=== PATIENT | female | born 1955 | race Caucasian/White ===

== ENCOUNTER → 2017-06-18 | Outpatient (CLI) | payer OTHER, MEDICAID, SELFPAY | PROVIDERS: PCP Family Medicine; Visit Provider Family Medicine | DX: E04.1 Nontoxic single thyroid nodule (principal) | CPT/HCPCS: 76536 ==

== ENCOUNTER → 2017-08-19 08:21 | Outpatient (CLI) | payer OTHER, MEDICAID, SELFPAY ==
[2017-08-19 08:39] LABS: Basophils % 0.5 % (0.1-2.0); Eosinophils # 0.2 K/mm3 (0.0-0.4); Hematocrit 42.4 % (37.0-47.0); Hemoglobin 13.5 g/dL (12.2-16.2); Lymphocytes # 2.2 K/mm3 (0.7-4.5); Lymphocytes % 29.1 K/mm3 (10-50); Mean Corpuscular HGB Conc 31.8 g/dL (31.8-35.4); Mean Corpuscular Hemoglobin 28.9 pg (27.0-31.2); Mean Corpuscular Volume 90.8 fl (81-99); Mean Platelet Volume 8.4 fl (7.4-10.4); Monocytes # 0.4 K/mm3 (0.1-1.0); Neutrophils # 4.6 K/mm3 (1.8-7.8); Neutrophils % 62.3 % (37.0-80.0); Platelet Count 243 K/mm3 (142-424); Red Blood Count 4.67 M/mm3 (4.20-5.40); Red Cell Distribution Width 14.1 % (11.5-17.5); White Blood Count 7.4 K/mm3 (4.8-10.8)
[2017-08-19 08:48] LABS: Albumin Level 3.5 gm/dL (3.4-5.0); Albumin/Globulin Ratio 0.8 (1.1-1.8); Alkaline Phosphatase 95 U/L (46-116); Chloride 106 mmol/L (98-107); Globulin 4.5 gm/dl (1.3-3.2); Potassium 3.6 mmoL/L (3.5-5.1)
[2017-08-19 09:16] LABS: Alanine Aminotransferase 18 U/L (12-78); Amylase 33 U/L (25-125); Anion Gap 16.6 mEq/L (5-15); Aspartate Amino Transferase 9 U/L (15-37); Bilirubin,Total 0.3 mg/dL (0.2-1.0); Blood Urea Nitrogen 13 mg/dL (7-18); Calcium 8.8 mg/dL (8.5-10.1); Carbon Dioxide 26 mmol/L (21.0-32.0); Creatinine,Serum 1.07 mg/dL (0.55-1.02); Estimated Glomerular Filt Rate 52 ml/min (>60); GFR (African American) 63 ML/MIN (>60); Glucose 88 mg/dL (74-106); Lipase 179 u/L (73-393); Sodium 145 mmol/L (136-145)
== END ==
PROVIDERS: Visit Provider Nurse Practitioner
DX: R10.9 Unspecified abdominal pain (principal)
CPT/HCPCS: 36415; 80053; 82150; 83690; 85025

== ENCOUNTER → 2018-02-27 07:13 | Outpatient (CLI) | payer OTHER, MEDICAID, SELFPAY ==
--- NOTE | 2018-02-27 07:15 | NM_ITS ---
CARDIOLITE SPECT MYOCARDIAL PERFUSION SCAN, REST AND STRESS: EXERCISE STRESS [facility] REVIEW QGS EF AND WALL MOTION EVALUATION: QPS - PERFUSION EVALUATION HISTORY: ABN EKG DOSE: 10.49 mCi technetium 99m mibi intravenously at rest followed by 31.8 mCi technetium 99m mibi following the intravenous ministration of 0.4 mg of Lexiscan. Resting blood pressure is 161/84. Stress blood pressure 149/85. FINDINGS: Ejection fraction is calculated to be 77. Stress images reveal decreased activity in the mid anterior apical wall while rest images reveal slightly worse imaging. There is also worsening uptake in the septum. Gated images calculated ejection fraction of 77% with normal wall motion IMPRESSION: Abnormal stress test suggesting anterior and septal ischemia with some degree of reverse redistribution. Hyperdynamic ejection fraction hyperdynamic wall motion apical correlation advised
--- NOTE | 2018-02-27 09:43 | HMH.ITSHM ---
METOPROLOL OMEPRAZOLE OXYCODONE CLINDAMGCIN CITOLOPRAM LISINOPRIL LYRICA AMITRIPTYLINE
== END ==
PROVIDERS: Family Provider Family Medicine; PCP Family Medicine; Visit Provider Internal Medicine
DX: Z01.810 Encounter for preprocedural cardiovascular examination (principal); R94.31 Abnormal electrocardiogram [ECG] [EKG]
CPT/HCPCS: 78452; 93017; 93306; A9502; J2785

== ENCOUNTER → 2019-01-12 11:33 | Outpatient (CLI) | payer BC, MEDICAID, SELFPAY ==
--- NOTE | 2019-01-12 11:39 | XR_ITS ---
XR chest 2V HISTORY: ITS.REASON: dyspnea ORDERING PHYSICIAN: Eulalia Benton APRN PATIENT AGE: 63 years COMPARISON: 03/18/2018. FINDINGS: The cardiomediastinal silhouette and pulmonary vascularity are within normal limits. There are stable punctate benign right lung calcified granulomas. Lung jaimes are otherwise clear.. There are stable middle lower thoracic spine moderate dextroscoliosis.. IMPRESSION: No change. No acute process.
[2019-01-12 14:07] LABS: Anion Gap 16.9 mEq/L (5-15); Blood Urea Nitrogen 20 mg/dL (7-18); Calcium 9.8 mg/dL (8.5-10.1); Carbon Dioxide 26 mmol/L (21.0-32.0); Chloride 99 mmol/L (98-107); Creatinine,Serum 1.26 mg/dL (0.55-1.02); Estimated Glomerular Filt Rate 43 ml/min (>60); GFR (African American) 52 ML/MIN (>60); Glucose 105 mg/dL (74-106); Potassium 3.9 mmoL/L (3.5-5.1); Sodium 138 mmol/L (136-145)
== END ==
PROVIDERS: PCP Family Medicine; Visit Provider Nurse Practitioner Family
DX: R00.0 Tachycardia, unspecified (principal); R06.09 Other forms of dyspnea; R94.31 Abnormal electrocardiogram [ECG] [EKG]; I10 Essential (primary) hypertension
CPT/HCPCS: 36415; 71046; 80048; 83880

== ENCOUNTER → 2019-01-15 11:41 | Outpatient (CLI) | payer BC, MEDICAID, SELFPAY ==
--- NOTE | 2019-01-15 11:43 | CA_ITS ---
PROCEDURE: 2-D M-mode and color Doppler study INDICATIONS FOR THE TEST: Chest pain COPD Heart Murmur Tobacco Smoking Palpitations Fatigue Syncope Edema Hypertension+Diabetes Mellitus Rheumatic Fever SOB+ROBERTS Obesity Hyperlipidemia+ Family History HD Additional History ABN EKG, CHF PATIENT INFORMATION HEIGHT: 68 WEIGHT:178 GENDER: Female B/P:133/88 2-D/M-MODE INTERPRETATION: 2-D MEASUREMENTS OBSERVED VALUES IN CMS Right Ventricular Dimension (RVDd) 1.8 Interventricular Septum (Thickness)(IVsd) 1.0 Left Ventricular Internal Dimensions(LVIDd) 3.6 Left Ventricular Posterior Wall (Thickness)(LVPWd) 0.9 Aortic Root 3.2 Aortic Cusp Separation 1.8 Left Atrial Dimensions (LAD) 3.7 2D 1. Technically difficult study because of the patient's factor and poor acoustic windows. 2. Left atrium is mildly enlarged, left ventricle is normal size, the ventricle wall thickness is upper limit of the normal, there is preserved left ventricular systolic function, visually estimated ejection fraction 55% with no regional wall motion abnormality, endocardial surfaces are poorly visualized. 3. The right atrium and the ventricular normal size and contractility. 4. The aortic valve is minimally thickened and fibrosed. 5. The mitral and tricuspid valvular grossly normal. 6. No significant pericardial effusion noted. DOPPLER INTERROGATION: Doppler interrogation of the aortic, mitral and tricuspid valvular presence of mild mitral and tricuspid regurgitation, tricuspid regurgitation jet velocity is inadequate for calculation of the right ventricular systolic pressure, grade 1 dysfunction seen with tissue Doppler evidence of raised left atrial pressure. CONCLUSION: 1. Mildly enlarged left atrium, normal left ventricular size, visually estimated ejection fraction 55% with no regional wall motion abnormality, endocardial surfaces are poorly visualized. Grade 1 diastolic dysfunction seen with tissue Doppler evidence of raised left atrial pressure. 2. Mild mitral and tricuspid regurgitation 3. No significant pericardial effusion noted.
== END ==
PROVIDERS: PCP Family Medicine; Visit Provider Internal Medicine
DX: R06.09 Other forms of dyspnea (principal); R94.31 Abnormal electrocardiogram [ECG] [EKG]; I10 Essential (primary) hypertension; R00.0 Tachycardia, unspecified
CPT/HCPCS: 93306

== ENCOUNTER → 2019-02-05 10:45 | Outpatient (CLI) | payer BC, MEDICAID, SELFPAY ==
--- NOTE | 2019-02-05 10:48 | XR_ITS ---
PROCEDURE: XR CHEST 2V CLINICAL HISTORY: ABSCESS Shortness of breath COMPARISON: CXR CHEST(2 VIEWS-NOT PORTABLE) from 01/08/2017 CXR1VP XR chest portable from 03/18/[address] angio chest from 03/18/2018 FINDINGS: The cardiomediastinal silhouette and pulmonary vascularity are within normal limits.The lungs are clear without infiltrates, suspicious nodules, or pleural effusions.Dextroscoliosis of the thoracic spine. Prior kyphoplasty at L1 IMPRESSION: No acute findings. Dictated by: Sonu Mi MD 02/05/2019 11:40 Signed by: <Electronically signed by Sonu Mi MD in [place]> 02/05/2019 11:40
== END ==
PROVIDERS: PCP Family Medicine; Visit Provider Physician Assistant
DX: L02.91 Cutaneous abscess, unspecified (principal)
CPT/HCPCS: 71046

== ENCOUNTER → 2019-05-03 13:03 | Outpatient (CLI) | payer BC, OTHER, SELFPAY ==
[2019-05-03 15:07] LABS: Anion Gap 14.7 mEq/L (5-15); Blood Urea Nitrogen 7 mg/dL (7-18); Calcium 8.6 mg/dL (8.5-10.1); Carbon Dioxide 25 mmol/L (21.0-32.0); Chloride 107 mmol/L (98-107); Estimated Glomerular Filt Rate 73 ml/min (>60); GFR (African American) 88 ML/MIN (>60); Glucose 96 mg/dL (74-106); Potassium 3.7 mmoL/L (3.5-5.1); Sodium 143 mmol/L (136-145)
== END ==
PROVIDERS: Visit Provider Urology
DX: I51.89 Other ill-defined heart diseases (principal)
CPT/HCPCS: 36415; 80048

== ENCOUNTER → 2019-09-07 16:35 | Outpatient (CLI) | payer BC, OTHER, SELFPAY ==
[2019-09-07 17:14] LABS: Basophils # 0.1 K/mm3 (0-0.2); Basophils % 0.9 % (0.1-2.0); Eosinophils # 0.4 K/mm3 (0.0-0.4); Eosinophils % 6.2 % (0.1-12.0); Hematocrit 42.2 % (37.0-47.0); Hemoglobin 12.7 g/dL (12.2-16.2); Lymphocytes # 2.3 K/mm3 (0.7-4.5); Lymphocytes % 39.9 % (10-50); Mean Corpuscular HGB Conc 30.2 g/dL (31.8-35.4); Mean Corpuscular Volume 86.3 fl (81-99); Mean Platelet Volume 9.9 fl (7.4-10.4); Monocytes # 0.4 K/mm3 (0.1-1.0); Monocytes % 6.7 % (1.7-9.3); Neutrophils # 2.7 K/mm3 (1.8-7.8); Neutrophils % 46.2 % (37.0-80.0); Platelet Count 211 K/mm3 (142-424); Red Blood Count 4.88 M/mm3 (4.20-5.40); Red Cell Distribution Width 15.3 % (11.5-17.5); White Blood Count 5.8 K/mm3 (4.8-10.8)
[2019-09-07 17:38] LABS: Chloride 105 mmol/L (98-107); Potassium 5.1 mmoL/L (3.5-5.1); Sodium 143 mmol/L (136-145)
[2019-09-07 17:41] LABS: Alanine Aminotransferase 14 U/L (12-78); Albumin Level 3.8 g/dl (3.5-5.0); Albumin/Globulin Ratio 1.2 (1.1-1.8); Alkaline Phosphatase 111 U/L (38-126); Anion Gap 12.1 mEq/L (5-15); Aspartate Amino Transferase 24 U/L (14-36); Bilirubin,Total 0.3 mg/dl (0.2-1.3); Blood Urea Nitrogen 10 mg/dl (7-17); Calcium 9.2 mg/dl (8.4-10.2); Carbon Dioxide 31 mmol/L (22.0-30.0); Chol/HDL Ratio 4.2 (1-3.5); Cholesterol 182 mg/dl (140-200); Estimated Glomerular Filt Rate 73 ml/min (>60); GFR (African American) 88 ML/MIN (>60); Globulin 3.2 g/dL (1.3-3.2); Glucose 97 mg/dl (74-100); HDL Cholesterol 43 mg/dl (40-60); Triglycerides 146 mg/dl (30-150); VLDL Cholesterol 29 mg/dL (0-40)
[2019-09-07 17:53] LABS: Direct LDL Cholesterol 111.16 mg/dL (100-129)
[2019-09-07 17:58] LABS: T4 (Thyroxine) 8.1 ug/dl (5.53-11.0)
[2019-09-07 18:12] LABS: Thyroid Stimulating Hormone 2.57 uIU/mL (0.465-4.68)
== END ==
PROVIDERS: Visit Provider Physician Assistant
DX: I10 Essential (primary) hypertension (principal); F41.9 Anxiety disorder, unspecified; F32.9 Major depressive disorder, single episode, unspecified; M51.16 Intervertebral disc disorders with radiculopathy, lumbar region; M54.5 Low back pain; E55.9 Vitamin D deficiency, unspecified; G89.29 Other chronic pain
CPT/HCPCS: 80053; 80061; 82652; 84436; 84443; 85025

== ENCOUNTER 2019-12-03 10:33 | Emergency (ER) | payer BC, OTHER, SELFPAY ==
[2019-12-03 10:33] VITALS: BP 140/85; PULSE 105; RESP 18; TEMP 36.9; O2SAT 97; BMI 27.3
--- NOTE | 2019-12-03 10:33 | ECG_ITS ---
APPROVED REPORT Exam: Resting ECG HR:101 bpm ECG Measurements Heart Rate 101 AXES NV 158 P 37 QRSd 82 QRS -7 QT 394 T 45 QTc 510 <Conclusion> Sinus tachycardia Minimal voltage criteria for LVH, may be normal variant Inferior infarct, age undetermined Abnormal ECG Electronically signed by : Jevon Donahue, 12/03/2019 14:07:46
--- NOTE | 2019-12-03 10:42 | XR_ITS ---
PROCEDURE: XR CHEST 2V CLINICAL HISTORY: soa Shortness of air COMPARISON: CXR CHEST(2 VIEWS-NOT PORTABLE) from 01/08/2017 CXR1VP XR chest portable from 03/18/[address] angio chest from 03/18/2018 XR CHEST 2V from 02/05/2019 FINDINGS: The cardiomediastinal silhouette and pulmonary vascularity are within normal limits. There is patchy density in the retrocardiac region on the left which could be due to an area of atelectasis or infiltrate. The remaining lungs are clear. There is dextroscoliosis of the upper thoracic spine and levoscoliosis of the lumbar spine. Prior vertebroplasty at T12. No acute bony abnormalities. IMPRESSION: Atelectasis or infiltrate in the retrocardiac region on the left Dictated by: Sonu Mi MD 12/03/2019 11:56 Electronically signed by Sonu Mi MD in [place] 12/03/2019 11:56
[2019-12-03 10:48] LABS: Chloride 106 mmol/L (98-107)
[2019-12-03 10:49] LABS: Basophils # 0.1 K/mm3 (0-0.2); Basophils % 0.6 % (0.1-2.0); Eosinophils # 0.4 K/mm3 (0.0-0.4); Eosinophils % 4.2 % (0.1-12.0); Hematocrit 39.1 % (37.0-47.0); Hemoglobin 12.6 g/dL (12.2-16.2); Lymphocytes # 2.9 K/mm3 (0.7-4.5); Lymphocytes % 30.5 % (10-50); Mean Corpuscular HGB Conc 32.1 g/dL (31.8-35.4); Mean Corpuscular Hemoglobin 28.5 pg (27.0-31.2); Mean Corpuscular Volume 88.9 fl (81-99); Mean Platelet Volume 8.4 fl (7.4-10.4); Monocytes # 0.5 K/mm3 (0.1-1.0); Monocytes % 4.7 % (1.7-9.3); Neutrophils # 5.8 K/mm3 (1.8-7.8); Platelet Count 182 K/mm3 (142-424); Potassium 4.1 mmoL/L (3.5-5.1); Red Cell Distribution Width 15.8 % (11.5-17.5); Sodium 138 mmol/L (136-145); White Blood Count 9.6 K/mm3 (4.8-10.8)
[2019-12-03 10:51] LABS: Blood Urea Nitrogen 15 mg/dl (7-17); Creatinine Clearance Estimated 75 mL/min (50-200); Estimated Glomerular Filt Rate 63 ml/min (>60); GFR (African American) 77 ML/MIN (>60)
[2019-12-03 10:52] LABS: Anion Gap 7.1 mEq/L (5-15); Calcium 8.9 mg/dl (8.4-10.2); Carbon Dioxide 29 mmol/L (22.0-30.0); Glucose 96 mg/dl (74-100)
[2019-12-03 11:03] VITALS: BP 152/103; PULSE 90; RESP 18; O2SAT 94
[2019-12-03 11:04] LABS: Troponin I < 0.01 ng/ml (0.00-0.034)
--- NOTE | 2019-12-03 11:14 | HMH.EDCP ---
ED Disposition Clinical Impression: Atypical chest pain Disposition: Home, Self-Care Condition on Discharge: Good Instructions: DI for Atypical Chest Pain Referrals: Roberto Carlos Feldman MD [Primary Care Provider] - - Critical Care Critical Care Time: No Attestation: On 12/03/19, the high probability of a clinically significant, sudden or life threatening deterioration of the following system(s) required my full and direct attention, intervention and personal management. The time I documented below is in addition to time spent performing reported procedures but includes the following listed in this critical care notation. Medical Decision Making - Medical Records Medical records reviewed: Yes: I reviewed the patient's medical records. - Vamsi Inquiry Pt receiving controlled substance: No Vital Signs: 12/03/19 10:33 Temperature 98.5 F Temperature Source Oral Pulse Rate [Right] 105 H Respiratory Rate 18 Blood Pressure [Right Arm] 140/85 Blood Pressure Mean [Right Arm] 103 02 Sat by Pulse Oximetry 97 - Lab Data Lab results reviewed: Yes: I reviewed the patient's lab results. Lab Results 12/03/19 10:35: WBC 9.6, RBC 4.40, Hgb 12.6, Hct 39.1, MCV 88.9, MCH 28.5, MCHC 32.1, RDW 15.8, Plt Count 182, MPV 8.4, Neut % (Auto) 60.0, Lymph % (Auto) 30.5, [place] % (Auto) 4.7, Eos % (Auto) 4.2, Baso % (Auto) 0.6, Neut # (Auto) 5.8, Lymph # (Auto) 2.9, [place] # (Auto) 0.5, Eos # (Auto) 0.4, Baso # (Auto) 0.1 12/03/19 10:35: Sodium 138, Potassium 4.1, Chloride 106, Carbon Dioxide 29, Anion Gap 7.1, BUN 15, Creatinine 0.90, Estimated Creat Clear 75, Estimated GFR 63, Est GFR ( Amer) 77, Glucose 96, Calcium 8.9, Troponin I < 0.01 Result diagrams: 12/03/19 10:35 12/03/19 10:35 Orders (Tests/Meds): ORDERS Category Date Time Status XR chest 2V Stat Exams 12/03/19 10:42 Taken Troponin I Q3H Lab 12/03/19 13:45 Ordered Troponin I Q3H Lab 12/03/19 16:45 Ordered - Radiology Data #1 Image(s): Chest Preliminary Findings: Normal/NAD - ECG Data Tracing #1 I reviewed this ECG and interpreted as documented below: Normal Sinus Rhythm: Yes Chest Pain HPI - General Chief Complaint: Chest Pain Stated Complaint: chest pain, SOA Time Seen by Provider: 12/03/19 11:15 Mode of Arrival: Wheelchair Source of Information: Patient Limitations: No Limitations Description of Symptoms (Recalled from ER Triage Doc. by RN): C/O chest pain that began this morning after being very soa for 1 week, denies cough or fever. - History of Present Illness MD complaint: chest pain indicative of cardiac Onset (ago): hour(s) Duration: constant Activity at onset: during rest Pain location: substernal Severity: moderate Severity scale (1-10): 3 Quality: tightness Pain radiation: none Relieving factors: nothing Exacerbating factors: nothing Associated symptoms: nausea Risk Factors for CAD: Hypertension Treatments prior to or on arrival for Cardiac Chest Pain: none - Related Data Prior Cardiac Testing/Procedures: Echocardiogram, Stress Test, Cardiac Angiogram On Oral Contraceptives: No (Clean stress and catheter years ago) Home Medications Medication Instructions Recorded Confirmed omeprazole 40 mg capsule,delayed 40 mg PO DAILY 03/06/18 12/01/19 release potassium chloride 10 mEq 10 meq PO DAILY 03/06/18 12/01/19 capsule,extended release metoprolol tartrate 50 mg tablet 25 mg PO BID tab 01/12/19 12/01/19 citalopram 40 mg tablet 40 mg PO DAILY tab 09/07/19 12/01/19 oxycodone 10 mg tablet 10 mg PO Q6H tab 12/01/19 12/01/19 Previous Rx's Medication Instructions Recorded ergocalciferol (vitamin D2) 1,250 50,000 unit PO QWEEK 90 Days #12 09/15/19 mcg (50,000 unit) capsule cap lisinopril 20 mg tablet 20 mg PO DAILY #90 tab 11/02/19 albuterol sulfate 90 mcg/actuation See Rx Instructions .ROUTE 11/29/19 aerosol inhaler .COMPLEX #18 gram metoprolol succinate 50 mg See Rx Instructions .ROUTE
[2019-12-03 12:30] VITALS: BP 154/97; PULSE 89; RESP 18; O2SAT 94
--- NOTE | 2019-12-03 13:15 | PC.NURSE ---
Notified of pt needing pain medication
--- NOTE | 2019-12-03 13:15 | INFXCTL.NOTE ---
Notified of pt needing pain medication
--- NOTE | 2019-12-03 13:25 | PC.NURSE ---
Notified that pt is in room crying because of pain in her back that is chronic even after administration of pain medication.
[2019-12-03 13:35] LABS: Troponin I < 0.01 ng/ml (0.00-0.034)
[2019-12-03 14:04] VITALS: BP 122/94; PULSE 84; RESP 20; TEMP 36.8; O2SAT 98
== END 2019-12-03 14:06 | disposition home or self-care (01) ==
PROVIDERS: Emergency Provider Family Medicine; PCP Emergency Medicine
DX: R07.89 Other chest pain (principal); K21.9 Gastro-esophageal reflux disease without esophagitis; I10 Essential (primary) hypertension; F41.9 Anxiety disorder, unspecified; Z79.899 Other long term (current) drug therapy
CPT/HCPCS: 71046; 80048; 84484; 85025; 93005; 96374; 96375; 99284; J2405

== ENCOUNTER → 2020-01-21 09:26 | Outpatient (CLI) | payer BC, OTHER, SELFPAY ==
--- NOTE | 2020-01-21 09:27 | MM_ITS ---
PROCEDURE: MM DIG SCREENING MAMM BI W/CAD Digital Breast Tomosynthesis Included CLINICAL INDICATION: screening There is no personal or family history of breast cancer. Patient had previous mammograms more than 10 years ago and they are not available for review. The patient has limited mobility due to back issues and left CC tim images could not be obtained COMPARISON: No exams were available for comparison TECHNIQUE: Standard CC and MLO images and 3D Tomosynthesis was obtained. R2 CAD reviewed. FINDINGS: Scattered fibroglandular densities are seen throughout both breasts there is a benign-appearing calcification right breast. There is no suspicious lesion and no suspicious microcalcifications. IMPRESSION: Fibrofatty parenchyma with no suspicious lesions seen BI-RAD Category: 2 Benign Finding(s) FOLLOW-UP: 1YR 1 Year Follow-up (A letter has been sent to the patient regarding results of the study.) Dictated Dr. Dean Oliveira MD 01/28/2020 09:18 Dr. Dean Mosley MD in [place] 01/28/2020 09:18
== END ==
PROVIDERS: PCP Emergency Medicine; Visit Provider Physician Assistant
DX: Z12.31 Encounter for screening mammogram for malignant neoplasm of breast (principal); R06.02 Shortness of breath
CPT/HCPCS: 77063; 77067; 94060; 94618; 94726; 94729

== ENCOUNTER 2020-05-25 04:28 | Emergency (ER) | payer BC, OTHER, SELFPAY ==
[2020-05-25 04:28] VITALS: BP 165/90; PULSE 64; RESP 16; TEMP 36.8; O2SAT 96; BMI 26.6
[2020-05-25 04:29] VITALS: BMI 26.6
--- NOTE | 2020-05-25 04:31 | XR_ITS ---
PROCEDURE: XR PELVIS 1-2V CLINICAL INDICATION: fall Posttraumatic pain COMPARISON: CR PELAP PELVIS AP ONLY from 10/15/2016 TECHNIQUE: XR Pelvis AP View FINDINGS: No fracture or dislocation is evident. There are mild osteoarthritic changes of the hips. A pain pump is present projecting over the left lower quadrant. The tip of the catheter is at the mid sacral region. Small metallic density is present at the L5 area No lytic or blastic change. IMPRESSION: No acute findings. Dictated by: Sonu Mi MD 05/25/2020 05:56 Sonu Mi MD in [place] 05/25/2020 05:56
--- NOTE | 2020-05-25 04:31 | CT_ITS ---
PROCEDURE: CT LUMBAR SPINE WO CON CLINICAL HISTORY: fall Posttraumatic pain, fall with injury and pain recent surgery with pain pump repair 05/22/2020 COMPARISON: No exams were available for comparison TECHNIQUE: Axial images obtained with sagittal and coronal reformats. All CT scans at the facility use one or more dose reduction, viz: automated exposure control, ma/kV adjustment per patient size (including targeted exams where dose is matched to indication, i.e. head), or iterative reconstruction technique. FINDINGS: There is fusion of the lower thoracic spine and upper lumbar spine through the L3 level. There has been prior kyphoplasty at L1. There is an acute nondisplaced transverse fracture through the lower aspect of L2. There is degenerative disc disease at L2-L3. At L4-5 there is degenerative disc disease with facet and ligamentum hypertrophy with canal stenosis. There is a metallic density in the posterior elements/base of the spinous process at L4 with a lucent lesion at L4 area with an air-fluid level which could be postsurgical. There is severe canal stenosis at L4-5 with facet and ligamentum hypertrophy and bulging disc. Severe bilateral lateral recess and foraminal narrowing at this level. Bulging disc is present at L5-S1 with canal stenosis and bilateral foraminal narrowing there is an intrathecal catheter which enters at the L3-L4 level with the catheter projected superiorly and in at the L2 level. There is an additional intrathecal catheter extending from the T12 level inferiorly to the S2 level which does not appear to be connected to a pump device. There is some subcutaneous edema and there is a small amount of subcutaneous emphysema in the left superficial soft tissues at the upper lumbar region IMPRESSION: 1. Acute nondisplaced transverse fracture of the lower aspect of L2. 2. Severe lumbar spondylosis with canal stenosis along with postsurgical changes. Please see above for detailed description. Dictated by: Sonu Mi MD 05/25/2020 09:53 Sonu Mi MD in [place] 05/25/2020 09:53
--- NOTE | 2020-05-25 04:31 | XR_ITS ---
PROCEDURE: XR FOREARM LT 2V CLINICAL INDICATION: fall Posttraumatic pain, fall with injury and pain COMPARISON: CR XR WRIST LT MIN 3V from 05/25/2020 FINDINGS: Comminuted fractures present involving the distal radius. The fracture is nondisplaced. There does appear to be some intra-articular involvement with longitudinal component of the fracture. There is a small butterfly fragment noted laterally at fracture site. Proximal mid aspect of the forearm have an unremarkable appearance. The joint spaces are well-preserved. No significant degenerative/arthritic changes. No erosive changes evident. Other findings:None. IMPRESSION: Comminuted distal radial fracture nondisplaced with intra-articular involvement. Dictated by: Sonu Mi MD 05/25/2020 05:53 Sonu Mi MD in [place] 05/25/2020 05:53
--- NOTE | 2020-05-25 04:35 | XR_ITS ---
PROCEDURE: XR CHEST AP CLINICAL HISTORY: fall Posttraumatic pain COMPARISON: CR CXR1VP XR chest portable from 03/18/[address] angio chest from 03/18/2018 CR XR CHEST 2V from 02/05/2019 CR XR CHEST 2V from 12/03/2019 FINDINGS: The cardiomediastinal silhouette and pulmonary vascularity are within normal limits. Small hiatal hernia suspected Thoracic scoliosis convex right. Prior kyphoplasty at L2. Bone plate is present along the lower cervical spine. IMPRESSION: As above, no acute finding Dictated by: Sonu Mi MD 05/25/2020 05:58 Sonu Mi MD in [place] 05/25/2020 05:58
--- NOTE | 2020-05-25 04:45 | PC.NURSE ---
pt to radiology
[2020-05-25 04:48] LABS: Basophils # 0.1 K/mm3 (0-0.2); Basophils % 0.7 % (0.1-2.0); Chloride 106 mmol/L (98-107); Eosinophils # 0.2 K/mm3 (0.0-0.4); Eosinophils % 2.6 % (0.1-12.0); Hematocrit 40.8 % (37.0-47.0); Hemoglobin 12.9 g/dL (12.2-16.2); Lymphocytes # 2.6 K/mm3 (0.7-4.5); Mean Corpuscular HGB Conc 31.7 g/dL (31.8-35.4); Mean Corpuscular Hemoglobin 27.7 pg (27.0-31.2); Mean Corpuscular Volume 87.2 fl (81-99); Mean Platelet Volume 9.1 fl (7.4-10.4); Monocytes # 0.6 K/mm3 (0.1-1.0); Monocytes % 6.9 % (1.7-9.3); Neutrophils % 58.8 % (37.0-80.0); Platelet Count 193 K/mm3 (142-424); Red Blood Count 4.68 M/mm3 (4.20-5.40); Red Cell Distribution Width 15.1 % (11.5-17.5); Sodium 142 mmol/L (136-145); White Blood Count 8.5 K/mm3 (4.8-10.8)
[2020-05-25 04:49] LABS: Potassium 3.7 mmoL/L (3.5-5.1)
[2020-05-25 04:51] LABS: Alanine Aminotransferase 14 U/L (12-78); Albumin Level 4.6 g/dl (3.5-5.0); Albumin/Globulin Ratio 1.3 (1.1-1.8); Alkaline Phosphatase 108 U/L (38-126); Anion Gap 11.7 mEq/L (5-15); Aspartate Amino Transferase 29 U/L (14-36); Bilirubin,Total 0.6 mg/dl (0.2-1.3); Blood Urea Nitrogen 15 mg/dl (7-17); Carbon Dioxide 28 mmol/L (22.0-30.0); Creatinine Clearance Estimated 73 mL/min (50-200); Estimated Glomerular Filt Rate 63 ml/min (>60); GFR (African American) 77 ML/MIN (>60); Globulin 3.6 g/dL (1.3-3.2); Total Protein,Serum 8.2 g/dl (6.3-8.2)
[2020-05-25 04:52] LABS: Calcium 9.5 mg/dl (8.4-10.2); Glucose 165 mg/dl (74-100)
[2020-05-25 05:01] VITALS: BP 156/89; PULSE 76; RESP 14; O2SAT 97
--- NOTE | 2020-05-25 05:18 | PC.NURSE ---
Left wrist elevated and ice pack applied
--- NOTE | 2020-05-25 05:22 | PC.NURSE ---
received report from [facility] re: lumbar ct. radiologist spoke with
[2020-05-25 05:28] VITALS: BP 168/99; PULSE 64; RESP 14; O2SAT 97
--- NOTE | 2020-05-25 05:33 | HMH.EDFALL ---
ED Disposition Clinical Impression: Fracture of wrist Qualifiers: Encounter type: initial encounter Fracture type: closed Laterality: left Qualified Code(s): S62.102A - Fracture of unspecified carpal bone, left wrist, initial encounter for closed fracture Fracture, vertebral, lumbar closed Qualifiers: Encounter type: initial encounter Lumbar vertebra fracture level: L2 Fracture morphology: unspecified fracture morphology Qualified Code(s): S32.029A - Unspecified fracture of second lumbar vertebra, initial encounter for closed fracture Chronic pain Qualifiers: Chronic pain type: other chronic postprocedural pain Qualified Code(s): G89.28 - Other chronic postprocedural pain Disposition: Home, Self-Care Condition on Discharge: Fair Instructions: DI for Vertebral Fracture Additional Instructions: see pcp for follow up Referrals: PCP,No [Primary Care Provider] - - Critical Care Critical Care Time: No Attestation: On 05/25/20, the high probability of a clinically significant, sudden or life threatening deterioration of the following system(s) required my full and direct attention, intervention and personal management. The time I documented below is in addition to time spent performing reported procedures but includes the following listed in this critical care notation. Medical Decision Making - Medical Records Medical records reviewed: Yes: I reviewed the patient's medical records. - Vamsi Inquiry Pt receiving controlled substance: No Vital Signs: 05/25/20 04:28 05/25/20 05:01 05/25/20 05:28 Temperature 98.2 F Temperature Source Oral Pulse Rate [Right Radial] 64 76 64 Respiratory Rate 16 14 14 Blood Pressure [Right Arm] 165/90 H 156/89 H 168/99 H Blood Pressure Mean [Right Arm] 115 111 122 Blood Pressure Source [Right Arm] Automatic Cuff Automatic Cuff Automatic Cuff Blood Pressure Position [Right Arm] Supine Sitting Supine 02 Sat by Pulse Oximetry 96 97 97 Oxygen Delivery Method Room Air Room Air 05/25/20 07:22 05/25/20 08:04 Temperature Temperature Source Pulse Rate [Right Radial] 66 69 Respiratory Rate Blood Pressure [Right Arm] 169/98 H 169/87 H Blood Pressure Mean [Right Arm] 121 114 Blood Pressure Source [Right Arm] Automatic Cuff Automatic Cuff Blood Pressure Position [Right Arm] Sitting Sitting 02 Sat by Pulse Oximetry 95 95 Oxygen Delivery Method Room Air Room Air - Lab Data Lab results reviewed: Yes: I reviewed the patient's lab results. Lab Results 05/25/20 04:30: WBC 8.5, RBC 4.68, Hgb 12.9, Hct 40.8, MCV 87.2, MCH 27.7, MCHC 31.7 L, RDW 15.1, Plt Count 193, MPV 9.1, Neut % (Auto) 58.8, Lymph % (Auto) 31.0, [place] % (Auto) 6.9, Eos % (Auto) 2.6, Baso % (Auto) 0.7, Neut # (Auto) 5.0, Lymph # (Auto) 2.6, [place] # (Auto) 0.6, Eos # (Auto) 0.2, Baso # (Auto) 0.1 05/25/20 04:30: Sodium 142, Potassium 3.7, Chloride 106, Carbon Dioxide 28, Anion Gap 11.7, BUN 15, Creatinine 0.90, Estimated Creat Clear 73, Estimated GFR 63, Est GFR ( Amer) 77, Glucose 165 H, Calcium 9.5, Total Bilirubin 0.6, AST 29, ALT 14, Alkaline Phosphatase 108, Total Protein 8.2, Albumin 4.6, Globulin 3.6 H, Albumin/Globulin Ratio 1.3 05/25/20 04:30: SARS-CoV-2 IgG Ab (Rapid) Negative, SARS-CoV-2 IgM Ab (Rapid) Negative 05/25/20 07:14: Urine Color Yellow, Urine Appearance Clear, Urine pH 6.0, Ur Specific [place] 1.015, Urine Protein Negative, Urine Glucose (UA) Negative, Urine Ketones Negative, Urine Blood Negative, Urine Nitrate Negative, Urine Bilirubin Negative, Urine Urobilinogen 0.2, Ur Leukocyte Esterase Negative, Urine RBC None, Urine WBC None, Ur Squamous Epith Cells Occasional, Urine Bacteria Trace 05/25/20 07:14: Urine Opiates Screen Negative, Urine Methadone Screen Negative, Ur Barbituates Screen Negative, Ur Phencyclidine Scrn Negative, Ur Amphetamines Screen Negative, U Benzodiazepines Scrn Positive H, Urine Cocaine Screen Negative, U Marijuana (THC) Screen Negative Result diagrams: 05/25/20 04:30
--- NOTE | 2020-05-25 05:41 | CT_ITS ---
PROCEDURE: CT THORACIC SPINE WO CON CLINICAL HISTORY: fall Posttraumatic pain COMPARISON: No exams were available for comparison TECHNIQUE: Axial images obtained with sagittal and coronal reformats. All CT scans at the facility use one or more dose reduction, viz: automated exposure control, ma/kV adjustment per patient size (including targeted exams where dose is matched to indication, i.e. head), or iterative reconstruction technique. FINDINGS: There is dextroscoliosis of the thoracic spine with diffuse posterior fusion throughout. Prior kyphoplasty at L1 there is some wedge compression changes of L1 which may be chronic. No lytic or blastic change apparent. Intrathecal catheter is present in the lumbar region. There is a hiatal hernia. Motion artifact does obscure fine detail of the soft tissues and lungs. No obvious fracture or dislocation. There is diffuse osteopenia there is a small amount of subcutaneous emphysema in the upper lumbar region on the left IMPRESSION: 1. No acute fracture identified. 2. Thoracic scoliosis with posterior fusion of the thoracic spine throughout 3. Mild soft tissue emphysema superficial to the upper lumbar spine Dictated by: Sonu Mi MD 05/25/2020 09:30 Sonu Mi MD in [place] 05/25/2020 09:30
--- NOTE | 2020-05-25 05:41 | CT_ITS ---
PROCEDURE: CT PELVIS WO CON CLINICAL INDICATION: fall; right hip Right hip pain following injury COMPARISON: No exams were available for comparison TECHNIQUE: Axial images obtained with sagittal and coronal reformats. All CT scans at the facility use one or more dose reduction, viz: automated exposure control, ma/kV adjustment per patient size (including targeted exams where dose is matched to indication, i.e. head), or iterative reconstruction technique. FINDINGS: No acute fracture or dislocation. There is diffuse osteopenia an intrathecal catheter is present entering spinal canal at L3-L4 which is directed dense superiorly off upper border of the images and looped upon itself within directed caudad terminating at the S1-S2 level. There is a small air-fluid level within a lucent area at L4 posterior element at the spinous process base which may be postsurgical in nature. There are no previous exams available for comparison. The lucent area measures approximately 13 mm. Mild osteoarthritic changes are present involving the hips with subchondral cystic changes in the right femoral head There is distention of the urinary bladder. Please see L-spine CT report for lumbar description. IMPRESSION: 1. No acute fracture. 2. Degenerative changes of the hips with subchondral cystic changes of the right femoral head. 3. Pain pump present as described above. Dictated by: Sonu Mi MD 05/25/2020 09:35 Sonu Mi MD in [place] 05/25/2020 09:35
--- NOTE | 2020-05-25 05:41 | CT_ITS ---
PROCEDURE: CT CERVICAL SPINE WO CON CLINICAL INDICATION: fall Neck injury with pain, contusion/abrasion or hematoma, cervical sprain/strain the or COMPARISON: No exams were available for comparison TECHNIQUE: Axial images obtained with sagittal and coronal reformats. All CT scans at the facility use one or more dose reduction, viz: automated exposure control, ma/kV adjustment per patient size (including targeted exams where dose is matched to indication, i.e. head), or iterative reconstruction technique. Axial spiral CT scanning performed of the cervical spine beginning at the base of the skull and continuing to the upper T-spine. 3-D multiplanar reconstruction with 3-D manipulation of volumetric data set in image rendering was completed by the radiologist and/or technologist with the supervision of the radiologist on independent workstation. FINDINGS: Has been prior anterior cervical disc fusion at C4-C5 C6 and C7. Degenerative disc disease is present at those levels. C2-C3: Mild bulging disc. C3-C4: Severe right-sided foraminal narrowing from uncovertebral and facet hypertrophy. C4-C5: Canal stenosis from endplate hypertrophic change with severe bilateral foraminal narrowing from uncovertebral and facet hypertrophy right greater than left. C5-C6: 3 mm anterolisthesis of C5 with endplate hypertrophic change. Prominent right paracentral disc osteophyte complex with canal stenosis. Bilateral foraminal narrowing from uncovertebral hypertrophy. C6-C7: Degenerative disc disease with endplate osteophytes with canal stenosis and bilateral foraminal narrowing. C7-T1: Degenerative disc disease. Motion artifact does somewhat obscure fine detail of the bony structures. No obvious fracture is evident. There is kyphosis at the C5-C6 level. Lung apices are clear. There is an air-fluid level in the sphenoid sinus with mucosal thickening of the sphenoid sinus with a small mucous retention cyst of the right maxillary sinus. IMPRESSION: 1. No acute fracture. 2. Severe cervical spondylosis with postsurgical changes with canal stenosis and foraminal narrowing. Please see above for detailed description at each level Dictated by: Sonu Mi MD 05/25/2020 09:21 Sonu Mi MD in [facility] 05/25/2020 09:21
--- NOTE | 2020-05-25 05:48 | CT_ITS ---
PROCEDURE: CT HEAD/BRAIN WO CON CLINICAL INDICATION: fall Head injury with headache/pain, contusion, abrasion or hematoma COMPARISON: No exams were available for comparison TECHNIQUE: Axial images obtained. All CT scans at the facility use one or more dose reduction, viz: automated exposure control, ma/kV adjustment per patient size (including targeted exams where dose is matched to indication, i.e. head), or iterative reconstruction technique. FINDINGS: No midline shift, mass effect, intracranial hemorrhage, hydrocephalus, or extra-axial fluid collection is evident. There is a hyperdensity present in both the right and left globus pallidus and may be due to mineralization. The calvarium has an unremarkable appearance. No mastoid effusion. There are air-fluid levels within the sphenoid sinus with mucosal thickening of the sphenoid sinus. IMPRESSION: 1. No acute intracranial findings. 2. Sinus disease Dictated by: Sonu Mi MD 05/25/2020 09:12 Sonu Mi MD in [facility] 05/25/2020 09:12
--- NOTE | 2020-05-25 05:55 | PC.NURSE ---
pt to ct at this time. splint placed to arm per md order.
[2020-05-25 06:24] LABS: Coronavirus 19 IgG Antibody Negative (Negative); Coronavirus 19 IgM Antibody Negative (Negative)
[2020-05-25 07:22] VITALS: BP 169/98; PULSE 66; O2SAT 95
[2020-05-25 07:22] LABS: Microscopic, Urine URINE MICROSCOPIC (MICROSCOPIC)
--- NOTE | 2020-05-25 07:32 | PC.NURSE ---
PT TAKING FLUIDS. PT CALLING FAMILY FOR RIDE HOME
--- NOTE | 2020-05-25 07:54 | PC.NURSE ---
[facility] CATH REMOVED, 1100[facility] URINE OUTPUT
[2020-05-25 07:56] LABS: Appearance,Urine CLEAR (Clear); Bilirubin,Urine Negative (Negative); Blood, Urine Negative (Negative); Color,Urine YELLOW (Yellow); Glucose,Urine (UA) Negative (Negative); Ketones,Urine Negative (Negative); Leukocyte Esterase,Urine Negative (Negative); Nitrate,Urine Negative (Negative); Protein,Urine Negative (Negative); Specific Gravity, Urine 1.015 (1.005-1.030); Urobilinogen,Urine 0.2 EU/dl (0.2)
[2020-05-25 08:04] VITALS: BP 169/87; PULSE 69; O2SAT 95
[2020-05-25 08:08] LABS: Amphetamine/Metha Screen,Urine Negative ng/ml (<1000); Benzodiazepines Screen,Urine Positive ng/ml (<200)
[2020-05-25 08:09] LABS: Barbiturates Screen,Urine Negative ng/ml (<200)
[2020-05-25 08:10] LABS: Cannabinoid Screen,Urine Negative ng/ml (<50); Cocaine Screen,Urine Negative ng/ml (<300)
[2020-05-25 08:11] LABS: Methadone Screen,Urine Negative ng/ml (<300); Opiate Screen,Urine Negative ng/ml (<300)
[2020-05-25 08:12] LABS: Phencyclidine Screen,Urine Negative ng/ml (<25)
[2020-05-25 08:22] LABS: Bacteria,Urine Trace /lpf; Squamous Epithelial Cell,Urine Occasional #/hpf (0-5)
--- NOTE | 2020-05-25 09:23 | PC.NURSE ---
pt up to wheelchair with assist.
[2020-05-25 09:24] VITALS: BP 144/78; PULSE 78; RESP 16; TEMP 36.6; O2SAT 98
== END 2020-05-25 09:25 | disposition home or self-care (01) ==
PROVIDERS: Emergency Provider Emergency Medicine
DX: S62.102A Fracture of unspecified carpal bone, left wrist, initial encounter for closed fracture (principal); S32.029A Unspecified fracture of second lumbar vertebra, initial encounter for closed fracture; G89.29 Other chronic pain; Z01.84 Encounter for antibody response examination; W07.XXXA Fall from chair, initial encounter; Y92.019 Unspecified place in single-family (private) house as the place of occurrence of the external cause; I10 Essential (primary) hypertension; F41.9 Anxiety disorder, unspecified; K21.9 Gastro-esophageal reflux disease without esophagitis; Z79.899 Other long term (current) drug therapy
CPT/HCPCS: 70450; 71045; 72125; 72128; 72131; 72170; 72192; 73090; 73110; 80053; 80305; 81001; 85025; 86328; 96374; 96375; 99284

== ENCOUNTER → 2020-05-31 16:51 | Outpatient (CLI) | payer BC, OTHER, SELFPAY ==
[2020-05-31 18:38] LABS: Basophils % 0.4 % (0.1-2.0); Eosinophils # 0.3 K/mm3 (0.0-0.4); Eosinophils % 3.2 % (0.1-12.0); Hematocrit 42.3 % (37.0-47.0); Hemoglobin 13.3 g/dL (12.2-16.2); Lymphocytes # 2.5 K/mm3 (0.7-4.5); Lymphocytes % 26.5 % (10-50); Mean Corpuscular HGB Conc 31.3 g/dL (31.8-35.4); Mean Corpuscular Hemoglobin 27.3 pg (27.0-31.2); Mean Platelet Volume 9.3 fl (7.4-10.4); Monocytes # 0.6 K/mm3 (0.1-1.0); Monocytes % 6.1 % (1.7-9.3); Neutrophils # 6.1 K/mm3 (1.8-7.8); Neutrophils % 63.8 % (37.0-80.0); Platelet Count 313 K/mm3 (142-424); Red Blood Count 4.86 M/mm3 (4.20-5.40); Red Cell Distribution Width 15.7 % (11.5-17.5); White Blood Count 9.5 K/mm3 (4.8-10.8)
== END ==
PROVIDERS: Visit Provider Physician Assistant
DX: R06.00 Dyspnea, unspecified (principal); D64.9 Anemia, unspecified
CPT/HCPCS: 85025

== ENCOUNTER 2020-06-18 11:50 | Observation (INO) | payer BC, OTHER, SELFPAY ==
[2020-06-18] VITALS (15 sets, daily range): BP systolic 113–161; BP diastolic 70–100; PULSE 76–103; RESP 18–32; TEMP 36.4–36.9; O2SAT 91–99; BMI 27.3; BMI 28.8
--- NOTE | 2020-06-18 11:57 | HMH.EDGENADL ---
ED Disposition Clinical Impression: Severe sepsis Pneumonia Qualifiers: Pneumonia type: due to unspecified organism Laterality: left Lung location: lower lobe of lung Qualified Code(s): J18.9 - Pneumonia, unspecified organism Disposition: Admitted As Inpatient Condition on Discharge: Good - Critical Care Critical Care Time: No Attestation: On , the high probability of a clinically significant, sudden or life threatening deterioration of the following system(s) required my full and direct attention, intervention and personal management. The time I documented below is in addition to time spent performing reported procedures but includes the following listed in this critical care notation. Medical Decision Making - Medical Records Medical records reviewed: Yes: I reviewed the patient's medical records. - Vamsi Inquiry Pt receiving controlled substance: Yes Vamsi was queried for this patient: No Reason not queried -: Emergent pt cond-no time Risks and benefits of using a controlled substance: were discussed with pt by me Vital Signs: 06/18/20 11:52 06/18/20 12:09 06/18/20 12:34 Temperature 98.4 F Temperature Source Oral Pulse Rate [Left Radial] 98 H 91 H 92 H Respiratory Rate 32 H Blood Pressure [Right Arm] 157/84 H 153/88 H 143/86 H Blood Pressure Mean [Right Arm] 108 109 105 Blood Pressure Source [Right Arm] Automatic Cuff Automatic Cuff Automatic Cuff Blood Pressure Position [Right Arm] Sitting Sitting Sitting 02 Sat by Pulse Oximetry 95 93 L 92 L Oxygen Delivery Method Room Air Room Air Room Air Oxygen Flow Rate (LPM) 06/18/20 13:38 06/18/20 14:00 06/18/20 14:04 Temperature Temperature Source Pulse Rate [Left Radial] 98 H 103 H Respiratory Rate Blood Pressure [Right Arm] 145/90 H 161/100 H Blood Pressure Mean [Right Arm] 108 120 Blood Pressure Source [Right Arm] Automatic Cuff Automatic Cuff Blood Pressure Position [Right Arm] Sitting Sitting 02 Sat by Pulse Oximetry 95 95 95 Oxygen Delivery Method Room Air Nasal Cannula Nasal Cannula Oxygen Flow Rate (LPM) 2 2 - Lab Data Lab Results 06/18/20 12:05: WBC 15.5 H, RBC 4.68, Hgb 12.9, Hct 41.7, MCV 89.0, MCH 27.7, MCHC 31.1 L, RDW 15.4, Plt Count 220, MPV 9.0, Neut % (Auto) 78.2, Lymph % (Auto) 15.0, [place] % (Auto) 4.5, Eos % (Auto) 1.9, Baso % (Auto) 0.4, Neut # (Auto) 12.1 H, Lymph # (Auto) 2.3, [place] # (Auto) 0.7, Eos # (Auto) 0.3, Baso # (Auto) 0.1, Total Counted 100, Neutrophils % (Manual) 82 H, Lymphocytes % (Manual) 13, Monocytes % (Manual) 3, Eosinophils % (Manual) 2, Platelet Estimate Normal, Hypochromasia 1+ 06/18/20 12:05: Sodium 145, Potassium 3.8, Chloride 111 H, Carbon Dioxide 26, Anion Gap 11.8, BUN 11, Creatinine 0.70, Estimated Creat Clear 74, Estimated GFR 85, Est GFR ( Amer) 102, Glucose 112 H, Calcium 9.2, Total Bilirubin 0.4, AST 25, ALT 24, Alkaline Phosphatase 184 H, Troponin I < 0.01, NT-Pro-B Natriuret Pep 207 H, Total Protein 7.6, Albumin 3.9, Globulin 3.7 H, Albumin/Globulin Ratio 1.1 06/18/20 12:05: SARS-CoV-2 IgG Ab (Rapid) Negative, SARS-CoV-2 IgM Ab (Rapid) Negative 06/18/20 12:05: Lactate 2.1 Result diagrams: 06/18/20 12:05 06/18/20 12:05 Orders (Tests/Meds): ED MEDICATIONS Generic Name Dose Route Start Last Admin Trade Name Freq PRN Reason Stop Dose Admin Ceftriaxone Sodium 1 gm/ 50 mls @ 100 mls/hr 06/18/20 12:45 06/18/20 13:20 Sodium Chloride IV 07/02/20 12:44 100 mls/hr Q24H JENNIFER Administration Protocol Azithromycin 500 mg/ Sodium 250 mls @ 250 mls/hr 06/18/20 12:45 06/18/20 13:19 Chloride IV 07/02/20 12:44 250 mls/hr Q24H JENNIFER Administration Protocol Lactated Ringer's 500 mls @ 999 mls/hr 06/18/20 14:00 Lactated Ringer's 1000 Ml Bag IV 06/18/20 14:30 .Q31M JENNIFER Discontinued Medications Generic Name Dose Route Start Last Admin Trade Name Freq PRN Reason Stop Dose Admin Albuterol/Ipratropium 3 ml 06/18/20 14:00 06/18/20 14:15
--- NOTE | 2020-06-18 11:58 | XR_ITS ---
PROCEDURE: XR CHEST PORTABLE Referring Doctor: Jim Cintron Patient Age:65Y CLINICAL HISTORY: dyspnea difficulty breathing some wheezing, started this morning COMPARISON: CT AGCHEST CT angio chest from 03/18/2018 CR XR CHEST 2V from 02/05/2019 CR XR CHEST 2V from 12/03/2019 CR XR CHEST AP from 05/25/[address] ANGIO CHEST from 06/18/2020 FINDINGS: AP portable upright CXR Heart is normal in size. Normal pulmonary vascularity. Renee and mediastinal structures unremarkable. The hiatal hernia yields retrocardiac density, approximately 8 cm transverse diameter of this hiatal hernia . The slight crowding and coarsening markings towards right lung base is similar to previous study although difficult to totally exclude early infiltrate and atelectasis here towards right base but again reviewing the CT chest from today there is some minimal low-density the ground-glass opacity right infrahilar region which could correlate. Unimpressive on CT but noted. In addition there is some linear atelectasis just above the right hemidiaphragm today but At the left chest subtle hazy appearance at the perihilar, left infrahilar area is in question. This is seen to correlate with the minimal ground-glass a low-density a Passy seen posterior to the left renee on today's CT chest but some of this reflects old change but could not exclude a very subtle new infiltrate here posterior left renee and left infrahilar region. The apices appear clear no pleural effusion. Generous dextro scoliosis T-spine with previous vertebroplasty upper T-spine. Anterior fusion lower C-spine IMPRESSION: Minor observations but no prominent findings Left chest subtle hazy appearance left infrahilar region may correspond with the subtle low-density patchy ground-glass opacity seen posterior to left renee on today's CTA chest Right chest minimal somewhat linear density towards right lung base likely suspect mainly reflecting some minor atelectasis and chronic changes; but difficult to totally exclude a subtle early infiltrate associated here Hiatal hernia. Borderline cardiomegaly. Thoracic dextroscoliosis Dictated by: Arthur Potter MD 06/18/2020 22:46 Arthur Potter MD in [facility] 06/18/2020 22:46
--- NOTE | 2020-06-18 12:00 | ECG_ITS ---
APPROVED REPORT Exam: Resting ECG HR:90 bpm ECG Measurements Heart Rate 90 AXES [place] 146 P 45 QRSd 88 QRS -14 QT 386 T 46 QTc 472 Conclusion Normal sinus rhythm Voltage criteria for left ventricular hypertrophy Inferior infarct - old changes Old late r wave progression Abnormal ECG Electronically signed by : Jevon Donahue, 06/18/2020 20:58:56
--- NOTE | 2020-06-18 12:07 | CT_ITS ---
PROCEDURE: CT ANGIO CHEST Referring Doctor: Jim Cintron Patient Age:65Y CLINCIAL INDICATION: acute dyspnea w/recent lumbar fx/immobility COMPARISON: CT AGCHEST CT angio chest from 03/18/2018 TECHNIQUE: IV Contrast: Rapid bolus administration the 70ML Isovue 370 followed by 40 mL normal saline Thin-section helical axial l images obtained with subsequent h thickened axial images along withMIPP slab volume sagittal and coronal reformats images were performed on CT independent workstation.. All CT scans at the facility use one or more dose reduction, viz: automated exposure control, ma/kV adjustment per patient size (including targeted exams where dose is matched to indication, i.e. head), or iterative reconstruction technique. FINDINGS: BONY STRUCTURES: The patient has prominent dextro rotoscoliosis of the T-spine which distorts the chest and decreases lung volume on the right Upper abdomen. The stomach is fairly distended with food and fluid. With this there is a larger more prominent hiatal hernia today-along with increased density throughout the distal thoracic esophagus which likely reflects VESNA reflux-I suspect this reflects mainly food material at the distal esophagus (difficult to exclude underlying lesion). At mid thoracic esophagus we see more fluid mixed with food mixture; and continuing more superiorly at the esophagus at level of the aortic arch there is a prominent air-fluid level within the a dilated thoracic esophagus. This is abnormal and is a above most likely is a reflection hiatal hernia with reflux. Difficult to exclude underlying esophageal prominent lesion but this is less likely but nonetheless is warrants follow-up endoscopy or esophagram once the patient feels more normal and can tolerate drinking PULMONARY ARTERIES: No pulmonary embolus evident. Overall adequate, fairly good visualization of pulmonary arteries with only some minor motion artifact towards lung bases which only slightly limits the study towards the left lung base AORTA: No acute finding. Stable appearance no thoracic aortic aneurysm or dissection evident LUNGS: No prominent findings. No mass or consolidation. There is subtle vague low-density ground-glass opacity LLL overlying the posterior aspect of the left infrahilar region. This appears very similar to previous 2018 CT chest, only slightly more evident. Thus suspect may reflect mainly chronic changes. Difficult to exclude a very subtle early active process. Suggest covid testing. Also if respiratory symptoms persists/progress of this minimal feature may warrant follow-up imaging to assure stability. A PLEURAL SPACES: No significant effusion. No evidence of pneumothorax. HEART: Unremarkable. Normal heart size. No significant pericardial effusion. The the . MEDIASTINAL AND HILAR STRUCTURES: No mediastinal adenopathy or mass otherwise seen. LYMPH NODES: No enlarged lymph nodes evident. UPPER ABDOMEN: Fatty changes the liver. Large amount of stool at the partially visualized transverse colon. Cholecystectomy noted IMPRESSION: No pulmonary embolism evident /aorta appears stable satisfactory Distended food/fluid-filled stomach(did just ingest a very large meal?) This is associated with large/more prominent hiatal hernia today-- With prominent amount of food and fluid throughout dilated thoracic esophagus most likely reflecting pronounced VESNA (Noting generous air-fluid level at the nearly 3 cm dilated upper most thoracic esophagus). Suggest follow-up esophagram or esophageal endoscopy. Prominent roto dextroscoliosis distorts the chest Only unimpressive subtle minimal ground-glass opacity LLL, along posterior aspect left infrah
--- NOTE | 2020-06-18 12:12 | PC.NURSE ---
rad at BS
[2020-06-18 12:19] LABS: Basophils # 0.1 K/mm3 (0-0.2); Basophils % 0.4 % (0.1-2.0); Eosinophils # 0.3 K/mm3 (0.0-0.4); Eosinophils % 1.9 % (0.1-12.0); Hematocrit 41.7 % (37.0-47.0); Hemoglobin 12.9 g/dL (12.2-16.2); Lymphocytes # 2.3 K/mm3 (0.7-4.5); Mean Corpuscular HGB Conc 31.1 g/dL (31.8-35.4); Mean Corpuscular Hemoglobin 27.7 pg (27.0-31.2); Monocytes # 0.7 K/mm3 (0.1-1.0); Monocytes % 4.5 % (1.7-9.3); Neutrophils # 12.1 K/mm3 (1.8-7.8); Neutrophils % 78.2 % (37.0-80.0); Platelet Count 220 K/mm3 (142-424); Red Blood Count 4.68 M/mm3 (4.20-5.40); Red Cell Distribution Width 15.4 % (11.5-17.5); White Blood Count 15.5 K/mm3 (4.8-10.8)
[2020-06-18 12:20] LABS: MANUAL DIFFERENTIAL MANUAL DIFFERENTIAL (MANUAL DIFF)
[2020-06-18 12:24] LABS: Chloride 111 mmol/L (98-107); Potassium 3.8 mmoL/L (3.5-5.1); Sodium 145 mmol/L (136-145)
[2020-06-18 12:26] LABS: Eosinophils % 2 % (0-3); Hypochromasia 1+; Lymphocytes % 13 % (10-50); Monocytes % 3 % (2-9); Neutrophils % 82 % (42-76); Platelet Estimate Normal; Total Cells Counted 100
[2020-06-18 12:27] LABS: Alanine Aminotransferase 24 U/L (12-78); Albumin Level 3.9 g/dl (3.5-5.0); Albumin/Globulin Ratio 1.1 (1.1-1.8); Alkaline Phosphatase 184 U/L (38-126); Anion Gap 11.8 mEq/L (5-15); Aspartate Amino Transferase 25 U/L (14-36); Bilirubin,Total 0.4 mg/dl (0.2-1.3); Blood Urea Nitrogen 11 mg/dl (7-17); Calcium 9.2 mg/dl (8.4-10.2); Carbon Dioxide 26 mmol/L (22.0-30.0); Creatinine Clearance Estimated 74 mL/min (50-200); Estimated Glomerular Filt Rate 85 ml/min (>60); GFR (African American) 102 ML/MIN (>60); Globulin 3.7 g/dL (1.3-3.2); Glucose 112 mg/dl (74-100); Total Protein,Serum 7.6 g/dl (6.3-8.2)
[2020-06-18 12:36] LABS: NT Pro Brain Natriuretic Pep. 207 pg/mL (0-125)
[2020-06-18 12:41] LABS: Troponin I < 0.01 ng/ml (0.00-0.034)
[2020-06-18 12:44] LABS: Coronavirus 19 IgG Antibody Negative (Negative); Coronavirus 19 IgM Antibody Negative (Negative)
--- NOTE | 2020-06-18 12:47 | PC.NURSE ---
pt to CT
[2020-06-18 12:49] LABS: Lactic Acid 2.1 mmol/L (0.7-2.1)
[2020-06-18 14:05] LABS: Adenovirus,PCR Not Detected (NotDetected); Bordetella Pertussis Not Detected (NotDetected); Chlamydophila Pneumoniae, PCR Not Detected (NotDetected); Coronavirus 19, PCR Not Detected (NotDetected); Coronavirus 229E Not Detected (NotDetected); Coronavirus NL63 Not Detected (NotDetected); Coronavirus OC43 Not Detected (NotDetected); Coronovirus HKU1,PCR Not Detected (NotDetected); Human Metapneumovirus Not Detected (NotDetected); Influenza A, PCR Not Detected (NotDetected); Influenza AH1, 2009 Not Detected (NotDetected); Influenza AH1, PCR Not Detected (NotDetected); Influenza AH3,PCR Not Detected (NotDetected); Influenza B, PCR Not Detected (NotDetected); Mycoplasma Pneumoniae, PCR Not Detected (NotDetected); Parainfluenza 1, PCR Not Detected (NotDetected); Parainfluenza 2, PCR Not Detected (NotDetected); Parainfluenza 3, PCR Not Detected (NotDetected); Parainfluenza 4, PCR Not Detected (NotDetected); Respiratory Syncytial Virus Not Detected (NotDetected); Rhinovirus/Enterovirus Not Detected (NotDetected)
--- NOTE | 2020-06-18 14:10 | PC.NURSE ---
WILLIAM KILLIAN speaking with Dr Feldman at this time.
--- NOTE | 2020-06-18 14:46 | PC.NURSE ---
Pt up to restroom.
--- NOTE | 2020-06-18 15:00 | PC.NURSE ---
lab states approx 40 minutes left on swab results
--- NOTE | 2020-06-18 15:10 | PC.NURSE ---
lab at bedside.
[2020-06-18 15:50] LABS: Microscopic, Urine URINE MICROSCOPIC (MICROSCOPIC)
[2020-06-18 15:51] LABS: Appearance,Urine CLEAR (Clear); Bilirubin,Urine Negative (Negative); Blood, Urine Negative (Negative); Color,Urine YELLOW (Yellow); Glucose,Urine (UA) Negative (Negative); Ketones,Urine Negative (Negative); Leukocyte Esterase,Urine Negative (Negative); Nitrate,Urine Negative (Negative); Protein,Urine Negative (Negative); Urobilinogen,Urine 0.2 EU/dl (0.2)
--- NOTE | 2020-06-18 15:52 | PC.NURSE ---
notified second floor pt is ready for admission, john states she will come down to get report.
[2020-06-18 15:56] LABS: Amorphous Sediment,Urine 1+ /lpf
--- NOTE | 2020-06-18 16:09 | PC.NURSE ---
report given to dustinrn
--- NOTE | 2020-06-18 16:17 | PC.NURSE ---
Pt arrived to the floor at this time.
[2020-06-18 16:19] LABS: Reflex Lactic Add Lactic Reflex
[2020-06-18 16:50] LABS: Lactic Acid Follow Up (RFLX 1) 1.3 mmol/L (0.7-2.1)
[2020-06-19] VITALS (10 sets, daily range): BP systolic 139–145; BP diastolic 79–89; PULSE 71–91; RESP 18–20; TEMP 36.6–37.1; O2SAT 92–97; BMI 28.9
--- NOTE | 2020-06-19 04:12 | PC.NURSE ---
Addendum entered by Lyubov Beal RN 06/19/20 04:15: HR has been 74-85 Original Note: no acute changes since prior assessment, pt has rested on and off t/o shift, has ambulated to once with standby assist, has remained on room air with O2 sat of 92%, expiratory wheezing heard on auscultation of lungs, respiratory rate has been between 18-20, no complaints of SOA or chest pain, pt has complained of pain in her back one time this shift and was treated per MAR
[2020-06-19 06:40] LABS: Chloride 108 mmol/L (98-107); Potassium 4.2 mmoL/L (3.5-5.1); Sodium 142 mmol/L (136-145)
[2020-06-19 06:43] LABS: Anion Gap 8.2 mEq/L (5-15); Blood Urea Nitrogen 12 mg/dl (7-17); Carbon Dioxide 30 mmol/L (22.0-30.0); Creatinine Clearance Estimated 76 mL/min (50-200); Estimated Glomerular Filt Rate 85 ml/min (>60); GFR (African American) 102 ML/MIN (>60); Glucose 116 mg/dl (74-100)
[2020-06-19 06:48] LABS: Basophils # 0.1 K/mm3 (0-0.2); Basophils % 0.6 % (0.1-2.0); Eosinophils # 0.3 K/mm3 (0.0-0.4); Hematocrit 37.1 % (37.0-47.0); Hemoglobin 11.7 g/dL (12.2-16.2); Lymphocytes # 2.5 K/mm3 (0.7-4.5); Lymphocytes % 30.5 % (10-50); Mean Corpuscular HGB Conc 31.7 g/dL (31.8-35.4); Mean Corpuscular Hemoglobin 28.5 pg (27.0-31.2); Mean Corpuscular Volume 90.1 fl (81-99); Monocytes # 0.5 K/mm3 (0.1-1.0); Monocytes % 5.8 % (1.7-9.3); Neutrophils # 4.9 K/mm3 (1.8-7.8); Platelet Count 183 K/mm3 (142-424); Red Blood Count 4.12 M/mm3 (4.20-5.40); Red Cell Distribution Width 15.7 % (11.5-17.5); White Blood Count 8.3 K/mm3 (4.8-10.8)
[2020-06-19 06:56] LABS: Troponin I < 0.01 ng/ml (0.00-0.034)
--- NOTE | 2020-06-19 07:19 | P.CONPHA_ITS ---
[facility] Pharmacy VTE Monitoring - Patient Demographics Admission date: 06/18/20 Report Date: 06/19/20 Time: 07:19 Allergies/Adverse Reactions: Patient Allergies No Known Allergies Allergy (Verified 06/18/20 16:56) Height: 1.7 m Weight: 83.659 kg Patient Problems: Current Active Problems (Last Updated 01/12/19 @ 11:07 by Lauren Griffiths RN) Severe sepsis (Acute) Pneumonia (Acute) - VTE Risk Labs: VTE Related Lab Results Hgb 11.7 g/dL (12.2-16.2) L 06/19/20 06:07 Hct 37.1 % (37.0-47.0) 06/19/20 06:07 Plt Count 183 K/mm3 (142-424) 06/19/20 06:07 BUN 12 mg/dl (7-17) 06/19/20 06:07 Creatinine 0.70 mg/dl (0.52-1.04) 06/19/20 06:07 Estimated Creat Clear 76 mL/min (50-200) 06/19/20 06:07 Was VTE Risk Assessment Performed: Yes VTE Score: 3 VTE Risk Level: Low Risk - Prophylaxis VTE Prophylaxis Ordered?: Yes Types of VTE Prophylaxis: TEDS Knee High Location of Applied Device: Bilateral Lower Extremeties
--- NOTE | 2020-06-19 08:00 | CA_ITS ---
APPROVED REPORT EXAM: Comprehensive 2D, Doppler, and color-flow Echocardiogram Upholstery Tech: Ailyn Barrios RVT Ht: 5 ft 7 in Wt: 184lbs BSA: 1.95 BP: 145/90 mmHg Indications: MURMUR,SOA,COPD,PNEUMONIA,SEPSIS,HTN,HLD,GERD OFD-QNH-CASR 2D Dimensions LVOT 1.97 cm (M/F) 1.5-2.5 M-Mode Dimensions RVDd 3.04 cm (0.9-2.6) LA Diam 4.21 cm (1.9-4.0) LVDd 3.89 cm (3.5-5.7) Ao Diam 2.64 cm (2.0-3.7) LVDs 2.07 cm (3.5-5.7) IVSd 0.79 cm (0.6-1.1) PWd 0.64 cm (0.6-1.1) EF (Teich) 78.80% FS 46.80% EDV (Teich) 65.50 mL ESV (Teich) 13.90 mL LV Diastology E Decel Time 150.00 (160-240 msec) E/A Ratio 1.2 MED E' 7.90 (< 7 cm/sec) E'/MED E' Ratio 11.63 (>14) LAT E' 13.70 (<10 cm/sec) E/LAT E' Ratio 6.71 (>14) Mitral Valve MV E Max Roly. 92.00 (40-130 cm/s) MV A Velocity 76.00 (40-130 cm/s) E/A Ratio 1.21 MV Decel. Time 150.00 (160-240 ms) MV PHT 44.00 ms Pulmonary Valve PV Peak Velocity 83.00 (50-150 cm/s) Tricuspid Valve TR P. Velocity 301.00 cm/s RAP Estimate 10.00 mmHg RVSP 46.20 mmHg Left Ventricle Left atrium is mildly enlarged, left ventricle is normal size, mild concentric left ventricular hypertrophy, visually estimated ejection fraction 55% with no regional wall motion abnormality, diastolic parameters are inconclusive. Right Ventricle Right atrium and right ventricle are normal size and contractility. Aortic Valve Aortic valve is minimally thickened and calcified, there is no aortic stenosis or aortic insufficiency. Mitral Valve Mitral valve is grossly normal, there is mild mitral regurgitation. Tricuspid Valve Tricuspid valve grossly normal, there is mild tricuspid regurgitation, tricuspid regurgitation jet velocity is inadequate for calculation of the right ventricular systolic pressure. Pulmonic Valve Pulmonic valve is poorly visualized. Great Vessels Aortic root is normal size. Pericardium No significant pericardial effusion noted. Conclusion 1. Mild biatrial enlargement, normal left ventricular size, mild concentric left ventricular hypertrophy, visually estimated ejection fraction 55% with no regional wall motion abnormality, diastolic parameters are inconclusive. 2. Mild mitral and tricuspid regurgitation. 3. No significant pericardial effusion noted. Electronically signed by : Efrain Loya, 06/19/2020 18:32:11
--- NOTE | 2020-06-19 08:16 | HMH.PHAINT ---
MEDICATION RECONCILIATION COMPLETED ON PATIENT USING EXTERNAL FILL HISTORY FROM PHARMACY. -PIERRE DEL ROSARIO, BERNARDOD
--- NOTE | 2020-06-19 08:26 | HMH.HP ---
*Admission Date: 06/18/20 *Chief complaint: wheezing *History of present illness: 65-yr old female with c/o dyspnea with worsening of wheezing. Patient states her dyspnea has been ongoing for the past 2 to 3 weeks and worsening over the last couple days. Patient states she felt no different just slightly more effort but her boyfriend told her she needs to go to ed because of increase in wheezing. Patient states Non productive cough. Patient states no recent illness,No fever/chills, No sick contacts.Hx of hypertension, chronic pain. Patient reports she has never smoked. Patient admitted for sob,and further work up on so and wheezing. Patient states she had a fall the first of may where she fx her left wrist and back/ [facility] History I have reviewed the patient's past medical history: Yes Medical History: Reports:: Anxiety, Gastroesophageal Reflux Disease(GERD), Hypertension Denies:: Cancer, Diabetes Mellitus Type 1, Diabetes Mellitus Type 2, Internal Pacemaker, MRSA, Seizures *Have you ever received a pneumonia vaccine?: Yes *Have you received a flu vaccine this season?: Yes Other Medical History: Reports: Arthritis, Other Laterality Cases: Bilateral: Tonsillectomy Other Surgeries: Yes: Appendectomy, Cardiac Catheterization, Cholecystectomy, Colonoscopy, Hysterectomy-Partial, Tubal Ligation, Other. No: Pacemaker Amputation: No Fractures: Yes - *Social History Last grade of school completed: High school graduate Smoking Status: Never smoker Alcohol Intake: never Substance Use Type: denies use *Occupational Status:: disabled Housing: apartment *Travel in the last 8 weeks: None - Psychiatric History Pschychiatric History:: Reports:: Anxiety Family Hx:: Heart Attack, Stroke Review of Systems - Review of Systems Review of systems:: pertinent systems reviewed and negative unless documented below - Constitutional Denies body ache(s), Denies fever(s) - Eyes Denies change in vision - ENT Denies change in voice - *Cardiovascular Reports shortness of breath, Reports shortness of breath with activity - *Respiratory Reports cough, Reports wheezing, Denies excessive phlegm production - *Gastrointestinal Denies nausea, Denies vomiting - *Genitourinary Denies pelvic pain - *Musculoskeletal Reports joint pain, Reports back pain - Integumentary/Breasts Denies rash - *Neurologic Denies dizziness - Psychiatric Denies lack of enjoyment - Endocrine Denies excessive sweating - Hematologic/Lymphatic Denies enlarged lymph nodes - Allergic/Immunologic Denies throat swelling Meds Home Medications Medication Instructions Recorded Confirmed Type Albuterol Sulfate [Proventil Hfa] 2 puffs IH QIDP PRN 05/25/20 06/19/20 History Ergocalciferol (Vitamin D2) 50,000 unit PO WEEKLY 05/25/20 06/19/20 History [Drisdol] Furosemide [Furosemide 20mg Tab*] 20 mg PO DAILY 05/25/20 06/18/20 History Metoprolol Succinate [Metoprolol 50 mg PO BID 05/25/20 06/18/20 History Succinate 50mg Tablet*] Potassium Chloride [Micro-K 10mEq 10 meq PO DAILY 05/25/20 06/18/20 History cap] alprazolam 0.5 mg tablet 0.5 mg PO TID #90 tab 06/14/20 06/18/20 Rx gabapentin 800 mg tablet 800 mg PO TID 30 Days #90 tab 06/14/20 06/18/20 Rx Citalopram Hydrobromide [Celexa] 40 mg PO DAILY 06/18/20 06/18/20 History Omeprazole 40 mg PO DAILY 06/18/20 06/18/20 History lisinopriL [Prinivil 20mg Tablet] 20 mg PO DAILY 06/18/20 06/18/20 History Fluticasone/Vilanterol [Breo 1 puff IH DAILY 06/19/20 06/19/20 History Ellipta 100-25 Mcg INH] Ipratropium/Albuterol Sulfate 2 puffs IH QID 06/19/20 06/19/20 History [Combivent Respimat Inh] Montelukast Sodium [Singulair 10mg 10 mg PO PM 06/19/20 06/19/20 History tablet] Oxycodone HCl/Acetaminophen 1 tab PO QIDP PRN 06/19/20 06/19/20 History [Percocet 7.5/325mg tablet] methocarbamoL [Methocarbamol 750mg 750 mg PO BID 06/19/20 06/19/20 History Tab] Allergies Allergy/AdvR
--- NOTE | 2020-06-19 10:30 | HMH.PULMCON ---
*Admission Date: 06/18/20 *Reason for consult:: Respiratory failure *History of present illness: Ms. Azevedo 65-year-old female never smoker, significant secondhand exposure that carries a diagnosis of allergic rhinitis and possible asthma was on Breo along with albuterol inhaler was presented to the ED complaining of worsening wheeze. On further questioning patient stated that she woke up when she noticed that sudden onset wheezing that did not improve with albuterol inhaler as per her boyfriend's request presented to the ED. Patient denies any worsening shortness of breath or dyspnea with that episode. Denies any worsening fevers, chills, cough. Pulmonary was called for further management. [facility] History Medical History: Reports:: Anxiety, Gastroesophageal Reflux Disease(GERD), Hypertension Denies:: Cancer, Diabetes Mellitus Type 1, Diabetes Mellitus Type 2, Internal Pacemaker, MRSA, Seizures *Have you ever received a pneumonia vaccine?: Yes *Have you received a flu vaccine this season?: Yes Other Medical History: Reports: Arthritis, Other Laterality Cases: Bilateral: Tonsillectomy Other Surgeries: Yes: Appendectomy, Cardiac Catheterization, Cholecystectomy, Colonoscopy, Hysterectomy-Partial, Tubal Ligation, Other. No: Pacemaker Amputation: No Fractures: Yes - *Social History Last grade of school completed: High school graduate Smoking Status: Never smoker Alcohol Intake: never Substance Use Type: denies use *Occupational Status:: disabled Housing: apartment *Travel in the last 8 weeks: None - Psychiatric History Pschychiatric History:: Reports:: Anxiety Family Hx:: Heart Attack, Stroke ROS - Review of Systems Review of systems:: pertinent systems reviewed and negative unless documented below - Cons Denies anorexia, Denies body ache(s), Denies chills, Denies fatigue, Denies fever(s) - Card Reports shortness of breath with activity, Denies shortness of breath, Denies irregular heart rhythm, Denies leg swelling - Resp Respiratory: Yes shortness of breath, No change in phlegm color, No chest congestion, No cough, No non-productive cough, Yes dyspnea, Yes dyspnea on exertion, No excessive phlegm production, No coughing up blood, No pain on inspiration, No pain with cough, No cough with sputum production, No pain with breathing, No snoring, No stridor, Yes wheezing - GI Gastrointestingal: Reports: system reviewed and no additional complaints, except as docu - [place] Musculoskeletal: Reports system reviewed and no additional complaints, except as docu Meds Home Medications Medication Instructions Recorded Confirmed Type Albuterol Sulfate [Proventil Hfa] 2 puffs IH QIDP PRN 05/25/20 06/19/20 History Ergocalciferol (Vitamin D2) 50,000 unit PO WEEKLY 05/25/20 06/19/20 History [Drisdol] Furosemide [Furosemide 20mg Tab*] 20 mg PO DAILY 05/25/20 06/18/20 History Metoprolol Succinate [Metoprolol 50 mg PO BID 05/25/20 06/18/20 History Succinate 50mg Tablet*] Potassium Chloride [Micro-K 10mEq 10 meq PO DAILY 05/25/20 06/18/20 History cap] alprazolam 0.5 mg tablet 0.5 mg PO TID #90 tab 06/14/20 06/18/20 Rx gabapentin 800 mg tablet 800 mg PO TID 30 Days #90 tab 06/14/20 06/18/20 Rx Citalopram Hydrobromide [Celexa] 40 mg PO DAILY 06/18/20 06/18/20 History Omeprazole 40 mg PO DAILY 06/18/20 06/18/20 History lisinopriL [Prinivil 20mg Tablet] 20 mg PO DAILY 06/18/20 06/18/20 History Ipratropium/Albuterol Sulfate 2 puffs IH QID 06/19/20 06/19/20 History [Combivent Respimat Inh] Montelukast Sodium [Singulair 10mg 10 mg PO PM 06/19/20 06/19/20 History tablet] Oxycodone HCl/Acetaminophen 1 tab PO QIDP PRN 06/19/20 06/19/20 History [Percocet 7.5/325mg tablet] methocarbamoL [Methocarbamol 750mg 750 mg PO BID 06/19/20 06/19/20 History Tab] Allergies Allergy/AdvReac Type Severity Reaction Status Date / Time No Known Allergies Allergy Verified 06/18/20 16:56 Exam Radiology reports for Last
--- NOTE | 2020-06-19 16:09 | PC.NURSE ---
Pt has been pleasant and cooperative this shift. A&O X4. Pt has complained of pain X1 and has received Percocet per MAR with favorable results. Pt has been on room air with sats. >90%. Lung sounds reveal expiratory rhonchi and expiratory wheezing. Skin is C/D/I. No edema noted. No coughing noted. Specimen cup at bedside and pt has been instructed to provide a sputum specimen. Pt ambulates with stand-by assistance and uses the toilet to void clear, yellow urine without issue. No BM this shift. Appetite is good and pt eats the majority of all meals. 20 G peripheral IV in the LT AC is patent and SL. VSS. Call light within reach. Will continue to monitor.
[2020-06-20] VITALS: BP 151/88; PULSE 80; RESP 20; TEMP 36.6; O2SAT 92
[2020-06-20 04:00] VITALS: BP 148/93; PULSE 77; RESP 20; TEMP 36.6; O2SAT 92
--- NOTE | 2020-06-20 04:16 | PC.NURSE ---
A&OX4. INTERMITTENT NONPRODUCTIVE COUGH NOTED WITH INSPIRATORY FINE CRACKLES. NO SOA, N/V/D OR DIZZINESS REPORTED. C/O PAIN TO LUE; CAST/DSG IN PLACE, C/D/I; TX PAIN WITH PRN MEDS PER MAR; EFFECTIVENESS REPORTED.
[2020-06-20 05:44] VITALS: PULSE 74; PULSE 78
[2020-06-20 05:58] VITALS: BMI 28.5
[2020-06-20 07:29] VITALS: BP 163/86; PULSE 77; RESP 18; TEMP 36.8; O2SAT 94
[2020-06-20 07:49] LABS: Basophils # 0.1 K/mm3 (0-0.2); Basophils % 0.4 % (0.1-2.0); Eosinophils % 0.1 % (0.1-12.0); Hemoglobin 12.3 g/dL (12.2-16.2); Lymphocytes # 2.5 K/mm3 (0.7-4.5); Lymphocytes % 17.7 % (10-50); Mean Corpuscular HGB Conc 31.6 g/dL (31.8-35.4); Mean Corpuscular Hemoglobin 27.8 pg (27.0-31.2); Mean Corpuscular Volume 88.2 fl (81-99); Mean Platelet Volume 8.4 fl (7.4-10.4); Monocytes # 0.6 K/mm3 (0.1-1.0); Monocytes % 4.4 % (1.7-9.3); Neutrophils # 11.1 K/mm3 (1.8-7.8); Neutrophils % 77.4 % (37.0-80.0); Platelet Count 192 K/mm3 (142-424); Red Blood Count 4.42 M/mm3 (4.20-5.40); Red Cell Distribution Width 15.5 % (11.5-17.5); White Blood Count 14.4 K/mm3 (4.8-10.8)
[2020-06-20 08:01] LABS: Chloride 104 mmol/L (98-107); Potassium 3.8 mmoL/L (3.5-5.1); Sodium 141 mmol/L (136-145)
[2020-06-20 08:04] LABS: Blood Urea Nitrogen 14 mg/dl (7-17); Creatinine Clearance Estimated 75 mL/min (50-200); Estimated Glomerular Filt Rate 85 ml/min (>60); GFR (African American) 102 ML/MIN (>60)
[2020-06-20 08:05] LABS: Anion Gap 8.8 mEq/L (5-15); Calcium 9.4 mg/dl (8.4-10.2); Carbon Dioxide 32 mmol/L (22.0-30.0); Glucose 127 mg/dl (74-100)
[2020-06-20 09:05] VITALS: PULSE 74; PULSE 75
--- NOTE | 2020-06-20 09:06 | HMH.DCSUM ---
General - General Admission date:: 06/18/20 Discharge date: 06/20/20 HPI HPI: 65-yr old female with c/o dyspnea with worsening of wheezing. Patient states her dyspnea has been ongoing for the past 2 to 3 weeks and worsening over the last couple days. Patient states she felt no different just slightly more effort but her boyfriend told her she needs to go to ed because of increase in wheezing. Patient states Non productive cough. Patient states no recent illness,No fever/chills, No sick contacts.Hx of hypertension, chronic pain. Patient reports she has never smoked. Patient admitted for sob,and further work up on so and wheezing. Patient states she had a fall the first of may where she fx her left wrist and back/ Hospital Course Hospital Course: 65-yr old female with c/o dyspnea with worsening of wheezing. Patient states her dyspnea has been ongoing for the past 2 to 3 weeks and worsening over the last couple days. Patient states she felt no different just slightly more effort but her boyfriend told her she needs to go to ed because of increase in wheezing. Patient states Non productive cough. Patient states no recent illness,No fever/chills, No sick contacts.Hx of hypertension, chronic pain. Patient reports she has never smoked. Patient admitted for sob,and further work up on so and wheezing. Patient states she had a fall the first may where she fx her left wrist and back/ 06/18/20 CXR: FINDINGS: AP portable upright CXR Heart is normal in size. Normal pulmonary vascularity. Renee and mediastinal structures unremarkable. The hiatal hernia yields retrocardiac density, approximately 8 cm transverse diameter of this hiatal hernia The slight crowding and coarsening markings towards right lung base is similar to previous study although difficult to totally exclude early infiltrate and atelectasis here towards right base but again reviewing the CT chest from today there is some minimal low-density the ground-glass opacity right infrahilar region which could correlate. Unimpressive on CT but noted. In addition there is some linear atelectasis just above the right hemidiaphragm today but At the left chest subtle hazy appearance at the perihilar, left infrahilar area is in question. This is seen to correlate with the minimal ground-glass a low-density a Passy seen posterior to the left renee on today's CT chest but some of this reflects old change but could not exclude a very subtle new infiltrate here posterior left renee and left infrahilar region. The apices appear clear no pleural effusion. Generous dextro scoliosis T-spine with previous vertebroplasty upper T-spine. Anterior fusion lower C-spine IMPRESSION: Minor observations but no prominent findings Left chest subtle hazy appearance left infrahilar region may correspond with the subtle low-density patchy ground-glass opacity seen posterior to left renee on today's CTA chest Right chest minimal somewhat linear density towards right lung base likely suspect mainly reflecting some minor atelectasis and chronic changes; but difficult to totally exclude a subtle early infiltrate associated here Hiatal hernia. Borderline cardiomegaly. Thoracic dextroscoliosis Dictated by: Tariq, 06/18/20 Chest CTA: FINDINGS: BONY STRUCTURES: The patient has prominent dextro rotoscoliosis of the T-spine which distorts the chest and decreases lung volume on the right Upper abdomen. The stomach is fairly distended with food and fluid. With this there is a larger more prominent hiatal hernia today-along with increased density throughout the distal thoracic esophagus which likely reflects VESNA reflux-I suspect this reflects mainly food material at the distal esophagus (difficult to exclude underlying lesion). At mid thoracic esophagus we see more fluid mixed with food mixture; and continuing more superiorly at the esophagus
[2020-06-20 11:22] VITALS: BP 149/95; PULSE 70; RESP 22; TEMP 36.8; O2SAT 94
--- NOTE | 2020-06-20 11:43 | HMH.PULMPN ---
Internal Medicine - PN: Subj *Date: 06/20/20 *Time: 11:43 Interval history: Patient respiratory status remained stable on room air. Exam - Constitutional Constitutional:: no acute distress, comfortable, healthy appearing - HENMT Exam HENMT: normocephalic, atraumatic - Eye Exam Eyes:: eyelids normal, normal conjunctiva - Neck Exam Neck:: normal visual inspection, thyroid normal, no lymphadenopathy - Respiratory Exam Respiratory:: able to speak in complete sentences, lungs clear, normal breath sounds, no respiratory distress, normal respiratory effort - Cardiovascular Exam Cardiac:: S1, S2 - GI Exam GI:: soft, no hepatosplenomegaly - Skin Exam Skin: warm, no rash, dry - Neurological Exam Neurological: alert, awake, normal cognition - Extremities Exam Extremities: no cyanosis, no clubbing, no edema - Psychiatric Exam Psychiatric: normal affect Assessment and Plan (1) Severe sepsis Status: Acute Category: Medical Code(s): A41.9 - Sepsis, unspecified organism; R65.20 - Severe sepsis without septic shock (2) Acute exacerbation of chronic low back pain Status: Acute Category: Medical Code(s): M54.5 - Low back pain; G89.29 - Other chronic pain (3) Fracture of wrist Status: Acute Qualifiers: Encounter type: initial encounter Fracture type: closed Laterality: left Qualified Code(s): S62.102A - Fracture of unspecified carpal bone, left wrist, initial encounter for closed fracture Category: Medical Code(s): S62.109A - Fracture of unspecified carpal bone, unspecified wrist, initial encounter for closed fracture (4) Fracture, vertebral, lumbar closed Status: Acute Qualifiers: Encounter type: initial encounter Lumbar vertebra fracture level: L2 Fracture morphology: unspecified fracture morphology Qualified Code(s): S32.029A - Unspecified fracture of second lumbar vertebra, initial encounter for closed fracture Category: Medical Code(s): S32.009A - Unspecified fracture of unspecified lumbar vertebra, initial encounter for closed fracture (5) Chronic low back pain Status: Chronic Qualifiers: Back pain laterality: bilateral Sciatica presence: without sciatica Qualified Code(s): M54.5 - Low back pain; G89.29 - Other chronic pain Category: Medical Code(s): M54.5 - Low back pain; G89.29 - Other chronic pain (6) ROBERTS (dyspnea on exertion) Status: Chronic Category: Medical Code(s): R06.09 - Other forms of dyspnea (7) HTN (hypertension) Status: Chronic Qualifiers: Hypertension type: essential hypertension Qualified Code(s): I10 - Essential (primary) hypertension Category: Medical Code(s): I10 - Essential (primary) hypertension - Assessment and plan all Dx Assessment and Plan for all problems:: #Asthma exacerbation: #Community-acquired pneumonia: #Bronchiolitis Ms. Azevedo 66-year-old old female never smoker with a prior history of allergic rhinitis, seasonal allergy, mild intermittent asthma and chronic cough presented to the ED with worsening wheeze. Prior PFTs did not show any evidence of obstruction. Presentation patient was found to be in tachypneic, not hypoxic and improved with nebulizer and steroid treatments. Patient appears comfortable and in no respiratory distress this morning auscultation clear breath sounds. Plan: -De-escalate antibiotics to azithromycin on discharge for a total f 5 days. -Prednisone 40 mg for a total of 5 days -Continue DuoNebs, patient can be discharged on her home inhalers that include Breo scheduled and albuterol as needed -We will follow the patient in 4 weeks with PFTs and HRCT that are already scheduled for tomorrow. #Rest of the medical management including the management of her hiatal hernia and possible acid reflux disease that might be contributing to her worsening respiratory status and wheezing as per primary team. Thank you for involving pulmonary in this patient care. We will continue t
== END 2020-06-20 15:00 | disposition home or self-care (01) ==
LOC: ER 12:05 → 2ND 14:22
PROVIDERS: Nurse Practitioner Family; Admitting Provider Emergency Medicine; Emergency Provider Emergency Medicine; PCP Emergency Medicine; Visit Provider Emergency Medicine
DX: J18.9 Pneumonia, unspecified organism (principal); J45.909 Unspecified asthma, uncomplicated; J21.9 Acute bronchiolitis, unspecified; G89.29 Other chronic pain; Z79.899 Other long term (current) drug therapy; Z79.52 Long term (current) use of systemic steroids; S62.102D Fracture of unspecified carpal bone, left wrist, subsequent encounter for fracture with routine healing; S32.029D Unspecified fracture of second lumbar vertebra, subsequent encounter for fracture with routine healing; M54.5 Low back pain; I10 Essential (primary) hypertension
CPT/HCPCS: 36415; 71045; 71275; 80048; 80053; 81001; 83605; 83880; 84484; 85007; 85025; 86328; 87040; 87581; 87633; 87798; 93005; 93306; 94640; 96365; 96367; 96375; 99285; G0378; J0456; Q9967

== ENCOUNTER → 2020-06-26 09:00 | Outpatient (CLI) | payer BC, OTHER, SELFPAY ==
--- NOTE | 2020-06-26 09:10 | XR_ITS ---
PROCEDURE: XR WRIST LT MIN 3V CLINICAL INDICATION: Closed fracture of distal end of left radius COMPARISON: CR XR WRIST LT MIN 3V from 05/25/2020 FINDINGS: Nondisplaced mildly impacted distal radial fracture once again noted. There does appear to be some sclerosis at the fracture margin distally. IMPRESSION: Healing nondisplaced distal radial fracture. Dictated by: Sonu Mi MD 06/26/2020 09:45 Sonu Mi MD in [facility] 06/26/2020 09:45
== END ==
PROVIDERS: PCP Emergency Medicine; Visit Provider Orthopaedic Surgery
DX: S62.109A Fracture of unspecified carpal bone, unspecified wrist, initial encounter for closed fracture (principal)
CPT/HCPCS: 73110

== ENCOUNTER → 2020-07-17 13:14 | Outpatient (CLI) | payer BC, OTHER, SELFPAY ==
--- NOTE | 2020-07-17 13:15 | CT_ITS ---
PROCEDURE: CT CHEST WO CON CLINICAL INDICATION: Bronchiolitis Pneumonia/sepsis in May 2020 [place] Frequent pneumonia COMPARISON: CT CT ANGIO CHEST from 06/18/2020 TECHNIQUE: Axial images obtained with sagittal and coronal reformats. All CT scans at the facility use one or more dose reduction, viz: automated exposure control, ma/kV adjustment per patient size (including targeted exams where dose is matched to indication, i.e. head), or iterative reconstruction technique. FINDINGS: HEART AND MEDIASTINAL STRUCTURES: Scattered small nodes. No mediastinal or hilar mass. There is a hiatal hernia with mild nonspecific thickening of the esophagus. LUNGS AND PLEURAL SPACES: Biapical scarring. Stable 3 mm subpleural nodule right upper lobe 25. Calcified granuloma right upper lobe. Calcified nodes present in the right hilum. Mild atelectatic changes within the lingula with atelectasis or scarring in the left lower lobe. BONY STRUCTURES: Scoliosis convex right of the thoracic spine with reversal of the midthoracic kyphosis. Prior kyphoplasty at L1 UPPER ABDOMEN: Status post cholecystectomy. There is pneumobilia. Moderate amount of retained colonic feces. ADDITIONAL FINDINGS: No other significant abnormalities. IMPRESSION: 1. No acute finding of the chest. 2. Hiatal hernia with mildly thickened esophagus which could be due to reflux esophagitis 3. Prominent rotoscoliosis with reversal of thoracic kyphosis Dictated by: Sonu Mi MD 07/18/2020 09:20 Sonu Mi MD in [facility] 07/18/2020 09:20
--- NOTE | 2020-07-17 13:15 | XR_ITS ---
PROCEDURE: XR DEXA AXIAL SKELETON CLINICAL HISTORY: post menopausal female with wrist fracture COMPARISON: No exams were available for comparison FINDINGS: The right hip BMD is 0.677 with a T-score of -1.5. The left hip BMD is 0.634 with a T-score of -1.9. The lumbar spine BMD is 1.016 with a T-score of -0.3. The right forearm BMD is 0.566 with a T-score of -2.1 IMPRESSION: This patient is considered osteopenic according to the World Health Organization criteria. Bone density is between 10 and 25 percent below young normal. Fracture risk is moderate. Treatment is advised. Based on these results a follow-up exam is recommended in 2 year. Dictated by: Sonu Mi MD 07/18/2020 01:14 Sonu Mi MD in [facility] 07/18/2020 14:22
[2020-07-17 14:50] VITALS: PULSE 70; PULSE 74
== END ==
PROVIDERS: PCP Emergency Medicine; Visit Provider Physician Assistant
DX: J42 Unspecified chronic bronchitis (principal); Z78.0 Asymptomatic menopausal state; S62.102A Fracture of unspecified carpal bone, left wrist, initial encounter for closed fracture; S32.029A Unspecified fracture of second lumbar vertebra, initial encounter for closed fracture
CPT/HCPCS: 71250; 77080; 94060; 94640; 94726; 94729

== ENCOUNTER → 2020-08-14 10:16 | Outpatient (CLI) | payer BC, OTHER, SELFPAY ==
--- NOTE | 2020-08-14 10:22 | XR_ITS ---
PROCEDURE: XR WRIST LT MIN 3V CLINICAL INDICATION: L distal radius fracture Follow-up fracture COMPARISON: CR XR WRIST LT MIN 3V from 05/25/2020 CR XR WRIST LT MIN 3V from 06/26/2020 FINDINGS: Distal radial fracture once again noted. Fracture lines are somewhat less apparent. There is some cortical irregularity involving the articular surface of the distal radius. There is good alignment. IMPRESSION: Healing distal radial fracture with good alignment. There is some cortical irregularity of the articular surface of the distal radius Dictated by: Sonu Mi MD 08/14/2020 11:42 Sonu Mi MD in [facility] 08/14/2020 11:42
== END ==
PROVIDERS: PCP Emergency Medicine; Visit Provider Orthopaedic Surgery
DX: S62.102A Fracture of unspecified carpal bone, left wrist, initial encounter for closed fracture (principal)
CPT/HCPCS: 73110

== ENCOUNTER 2020-10-04 13:05 | Outpatient (RCR) | payer BC, OTHER, SELFPAY | END 2020-10-04 13:10 | disposition home or self-care (01) | LOC: OT 13:05 | PROVIDERS: PCP Emergency Medicine; Visit Provider Orthopaedic Surgery | DX: S52.502D Unspecified fracture of the lower end of left radius, subsequent encounter for closed fracture with routine healing (principal) | CPT/HCPCS: 97165 ==

== ENCOUNTER → 2021-01-08 11:05 | Outpatient (CLI) | payer BC, OTHER, SELFPAY ==
--- NOTE | 2021-01-08 11:06 | CA_ITS ---
APPROVED REPORT Right Lower Extremity Venous Study for DVT. Ostrich Farmer: SHER Indications Lower Extremity Pain: Right pain/swelling RLE; dyspnea Risk Factors Family hx of DVT Vein Imaging CFV (R): compressive, spontaneous, phasic, augmentation SFJ (R): compressive, spontaneous, phasic, augmentation FEM (R): compressive, spontaneous, phasic, augmentation POP (R): compressive, spontaneous, phasic, augmentation PTV (R): compressive, spontaneous, phasic, augmentation GSV (R): compressive, spontaneous, phasic, augmentation Peroneals (R):compressive, spontaneous, phasic, augmentation GAS (R): compressive, spontaneous, phasic, augmentation Findings No evidence of DVT or SVT in the right lower extremity. Conclusion No evidence of DVT or SVT in the right lower extremity. Electronically signed by : Marissa Monroy, 01/08/2021 16:56:00
--- NOTE | 2021-01-08 11:34 | XR_ITS ---
PROCEDURE: XR CHEST 2V CLINICAL HISTORY: dyspnea with exertion COMPARISON: CR XR CHEST 2V from 12/03/2019 CR XR CHEST AP from 05/25/2020 CR XR CHEST PORTABLE from 06/18/[address] CHEST WO CON from 07/17/2020 FINDINGS: Background of chronic interstitial changes are noted. No lobar consolidation, pleural effusions or pneumothorax. Cardiac size and central pulmonary vasculature within normal limits. There is dextroscoliosis of the thoracic spine. Multilevel degenerative changes are noted. ACDF of the lower cervical spine is partially visualized. Sequela of prior kyphoplasty of lumbar vertebral body. IMPRESSION: Chronic interstitial changes. No lobar consolidation or pleural effusions. No interval change compared to prior study. Dictated by: Marissa Monroy 01/11/2021 14:42 Marissa Monroy in [facility] 01/11/2021 14:42
== END ==
PROVIDERS: PCP Physician Assistant; Visit Provider Physician Assistant
DX: R06.00 Dyspnea, unspecified (principal); M79.604 Pain in right leg; M79.89 Other specified soft tissue disorders
CPT/HCPCS: 71046; 93971

== ENCOUNTER → 2021-01-26 10:35 | Outpatient (CLI) | payer BC, OTHER, SELFPAY ==
--- NOTE | 2021-01-26 10:35 | CA_ITS ---
APPROVED REPORT EXAM: Comprehensive 2D, Doppler, and color-flow Echocardiogram Mitigation Supervisor: Ailyn Barrios RVT Ht: 5 ft 1 in Wt: 190lbs BSA: 1.85 BP: 144/96 mmHg Indications: SOA,PNEUMONIA,GERD,MURMUR,COPD,HTN,HLD 2D Dimensions LVOT 2.19 cm (M/F) 1.5-2.5 LA Volume 23.60 mL LA Volume Index 12.82 mL/m2 (M/F) 16-34 M-Mode Dimensions RVDd 2.06 cm (0.9-2.6) LA Diam 3.63 cm (1.9-4.0) LVDd 4.50 cm (3.5-5.7) Ao Diam 2.45 cm (2.0-3.7) LVDs 3.22 cm (3.5-5.7) IVSd 1.13 cm (0.6-1.1) PWd 0.78 cm (0.6-1.1) EF (Teich) 55.00% FS 28.40% EDV (Teich) 92.40 mL TAPSE 1.57 (<1.7) ESV (Teich) 41.60 mL LV Diastology E Decel Time 227.00 (160-240 msec) E/A Ratio 1.2 MED E' 6.70 (< 7 cm/sec) E'/MED E' Ratio 11.91 (>14) LAT E' 9.50 (<10 cm/sec) E/LAT E' Ratio 8.40 (>14) Aortic Valve AO Peak GR. 6.50 mmHg Mitral Valve MV E Max Roly. 80.00 (40-130 cm/s) MV A Velocity 66.00 (40-130 cm/s) E/A Ratio 1.20 MV Decel. Time 227.00 (160-240 ms) MV PHT 66.00 ms Pulmonary Valve PV Peak Velocity 64.00 (50-150 cm/s) Tricuspid Valve TR P. Velocity 308.00 cm/s RAP Estimate 10.00 mmHg RVSP 48.00 mmHg Left Ventricle Left atrium is mildly enlarged, left ventricle is normal size, mild concentric left ventricular hypertrophy, visually estimated ejection fraction 55% with no regional wall motion abnormality, grade 1 diastolic dysfunction seen without tissue Doppler evidence of raise left atrial pressure. Right Ventricle Right atrium and right ventricle are mildly enlarged with normal contractility. Aortic Valve Aortic valve is minimally thickened and fibrosed, there is no aortic stenosis or aortic insufficiency. Mitral Valve Mitral valve leaflets are minimally thickened, there is mild mitral regurgitation. Tricuspid Valve Tricuspid valve grossly normal, there is mild tricuspid regurgitation, calculated right ventricular systolic pressure is 48 mmHg. Pulmonic Valve Pulmonic valve is poorly visualized. Great Vessels Aortic root is normal size. Pericardium No significant pericardial effusion noted. Conclusion 1. Mild biatrial enlargement, normal left ventricular size, mild concentric left ventricular hypertrophy, visually estimated ejection fraction 55% with no regional wall motion abnormality, grade 1 diastolic dysfunction seen without tissue Doppler evidence of raise left atrial pressure. 2. Mildly enlarged right ventricle with normal contractility. 3. Mild mitral and tricuspid regurgitation, calculated right ventricular systolic pressure is 48 mmHg. 4. No significant pericardial effusion noted. Electronically signed by : Efrain Loya MD 01/26/2021 14:10:49
== END ==
PROVIDERS: PCP Physician Assistant; Visit Provider Physician Assistant
DX: R06.09 Other forms of dyspnea (principal)
CPT/HCPCS: 93306

== ENCOUNTER → 2021-03-29 11:20 | Outpatient (CLI) | payer BC, OTHER, SELFPAY ==
--- NOTE | 2021-03-29 | CA_ITS ---
APPROVED REPORT Exam: Pharmacologic Technologist: Tonie Elizabeth, Ht: 5 ft 1 in Wt: 192 lbs BSA: 1.86 m2 HR: 64 bpm BP: 139/73 mmHg Rhythm: NSR,RIGHTWARD AXIS, ST-T ABNS INFERIORLY Medical History Medical History: HTN Medications: Omeprazole,,,,, Alprazolam,,,,, Metoprolol,,,,, Gabapentin,,,,, Citalopram,,,,, Calcium,,,,, Montelukast,,,,, MethADONE,,,,, Alendonate,,,,, OxYCODONE,,,,, Methocarbamol,,,,, Potassium,,,,, Allergies: No known drug allergies Cardiac Risk Factors: HTN, FHX of CAD Stress Test Details Test: LEXISCAN HR Resting HR: 68 bpm Max Heart Rate (APMHR): 157.617379 bpm Max HR Achieved: 80 bpm Target HR (85% APMHR): 133.083407 bpm % of APMHR: 50.96 Recovery HR: 69 bpm BP Resting BP: 139/73 mmHg Max BP: 148/93 mmHg Recovery BP: 137.0/85.0 mmHg ECG Resting ECG: NSR, RIGHTWARD AXIS, ST-T ABNS INFERIORLY Clinical Exercise duration: 04:03 min Highest Stage Achieved: Exercise capacity: 1.0 METs Stress ECG Conclusion VERY MILD SOA AND LIGHTHEADEDNESS. NO CP. NO ARRHYTHMIAS/ECTOPY. NO SIGNIFICANT ST-T CHANGES. NON DIAGNOSTIC LEXISCAN STRESS. MYOVIEW IMAGES REPORTED SEPARATELY. Electronically signed by : Efrain Loya MD 03/29/2021 15:06:19
--- NOTE | 2021-03-29 11:23 | NM_ITS ---
APPROVED REPORT Exam: Nuclear Stress Test Indication: chest pain..short of reath..palpitations..syncope..fatigue Patient Location: Outpatient Stress Tech: Tonie Elizabeth MT Tech:Fannie Nails PANKAJJanis RT(R)(N) Ht: 5 ft 8 in Wt: 180 lbs Bra Size: 38c HR: 64 bpm BP: 139/73 mmHg BSA: 1.95 m2 BMI: 27.3 History: chest pain..short of reath..palpitations..syncope..fatigue Procedure: Patient received a 0.4 mg of intravenous Lexiscan, resting heart rate 64 bpm, resting blood pressure 139/73 mmHg, with Lexiscan maximum heart rate achived was 77 bpm which is Less than 85 % of the maximum predicted heart rate and blood pressure was 148/93 mmHg. With Lexiscan, patient denied any complaint of chest pain. pt was unable to lay on her belly. Electrocardiogram Resting electrocardiogram shows sinus rhythm, with Lexiscan there is less than 1.[address] segment depression noted from the baseline EKG. The EKG portion of the Lexiscan is nondiagnostic. Cardiac Stress and Resting SPECT Images: Cardiac Stress and Resting SPECT images were obtained using technetium 99m Myoview 31.9 mCi stress and 10.04 mCi at rest. Gated SPECT for analysis of segmental wall motion and calculation of the ejection fraction also done. Cardiac stress and rest SPECT images show decreased tracer activity in the distal anteroseptal wall which improves on the resting images suggestive of reversible ischemia, computer derived ejection fraction is 63% with no regional wall motion abnormality, right ventricle is normal size and contractility. Conclusion: 1. The EKG portion of the Lexiscan is nondiagnostic. 2. Scintigraphic evidence of mild reversible ischemia involving the distal anteroseptal wall, computer derived ejection fraction is 63% with no regional wall motion abnormality, right ventricle is normal size and contractility. 3. Abnormal Lexiscan Myoview study. Electronically signed by : Efrain Loya MD 03/29/2021 15:09:27
== END ==
PROVIDERS: PCP Physician Assistant; Visit Provider Urology
DX: R06.02 Shortness of breath (principal); I10 Essential (primary) hypertension; R93.1 Abnormal findings on diagnostic imaging of heart and coronary circulation; R94.30 Abnormal result of cardiovascular function study, unspecified
CPT/HCPCS: 78452; 93017; A9502; J2785

== ENCOUNTER 2021-04-27 08:52 | Day surgery (SDC) | payer BC, OTHER, SELFPAY ==
[2021-04-27] VITALS (12 sets, daily range): BP systolic 87–129; BP diastolic 54–78; PULSE 60–67; RESP 16–18; O2SAT 87–100; BMI 36.1
--- NOTE | 2021-04-27 | IR_ITS ---
APPROVED REPORT Patient Location: Outpatient [facility] Associate: ROMULO Epstein RT (R) PROCEDURES Left heart catheterization Left ventriculogram Selective coronary angiogram INDICATION Abnormal Myoview, Angina pectoris Informed consent was obtained prior to the procedure. COMPLICATIONS NONE Estimated Blood Loss: LESS THAN 1O ML TECHNIQUE One percent lidocaine used to anesthetize the right anterior aspect of the wrist. The right radial artery was accessed via the Seldinger technique. A 6 Pashto sheath was placed in the right radial artery. 2.5 mg of verapamil, 800 mcg of nitroglycerin, 1mg Lidocaine and 5000 U Heparin were given through the arterial sheath. The Poppa catheter was also used to perform left heart catheterization, left ventriculogram and selective coronary angiogram. At the end of the procedure the sheath was removed good hemostasis was achieved using Traclet band, patient was transferred to the postop holding area in stable condition. ANGIOGRAPHIC RESULTS The left main artery Normal The left anterior descending artery Has proximal mid vessel 10 to 20% luminal irregularities The circumflex artery Dominant normal The right coronary artery Normal The N[place]ON ventriculogram reveals Normal 65% The left ventricular end-diastolic pressure 10 mmHg IMPRESSION Mild proximal and mid vessel 10 to 20% luminal irregularities Normal ejection fraction Normal left ventricular and SI pressure PLAN 1. Evaluation of noncardiac chest pain Electronically signed by : Steven Morrison MD 04/27/2021 11:41:57
[2021-04-27 09:53] LABS: Basophils # 0.1 K/mm3 (0-0.2); Basophils % 1.2 % (0.1-2.0); Eosinophils # 0.3 K/mm3 (0.0-0.4); Eosinophils % 4.6 % (0.1-12.0); Hematocrit 42.5 % (37.0-47.0); Lymphocytes # 2.1 K/mm3 (0.7-4.5); Lymphocytes % 30.8 % (10-50); Mean Corpuscular HGB Conc 30.6 g/dL (31.8-35.4); Mean Corpuscular Hemoglobin 26.9 pg (27.0-31.2); Mean Corpuscular Volume 87.9 fl (81-99); Mean Platelet Volume 8.9 fl (7.4-10.4); Monocytes # 0.4 K/mm3 (0.1-1.0); Monocytes % 6.3 % (1.7-9.3); Neutrophils # 3.9 K/mm3 (1.8-7.8); Neutrophils % 57.2 % (37.0-80.0); Platelet Count 215 K/mm3 (142-424); Red Blood Count 4.83 M/mm3 (4.20-5.40); Red Cell Distribution Width 14.7 % (11.5-17.5); White Blood Count 6.8 K/mm3 (4.8-10.8)
[2021-04-27 09:55] LABS: Coronavirus 19, PCR Not Detected (NotDetected); Influenza A, PCR Not Detected (NotDetected); Influenza B, PCR Not Detected (NotDetected)
[2021-04-27 10:05] LABS: Anion Gap 11.5 mEq/L (5-15); Blood Urea Nitrogen 15 mg/dl (7-17); Calcium 8.5 mg/dl (8.4-10.2); Carbon Dioxide 29 mmol/L (22.0-30.0); Chloride 106 mmol/L (98-107); Creatinine Clearance Estimated 79 mL/min (50-200); Estimated Glomerular Filt Rate 101 ml/min (>60); GFR (African American) 122 ML/MIN (>60); Glucose 100 mg/dl (74-100); Potassium 4.5 mmoL/L (3.5-5.1); Sodium 142 mmol/L (136-145)
== END 2021-04-27 14:41 | disposition home or self-care (01) ==
LOC: CATHLAB 08:54
PROVIDERS: PCP Physician Assistant; Visit Provider Internal Medicine
DX: R07.89 Other chest pain (principal); I10 Essential (primary) hypertension; R94.30 Abnormal result of cardiovascular function study, unspecified; R06.02 Shortness of breath
CPT/HCPCS: 80048; 85025; 93458; 99152; C1725; C1769; C9803; J1644; Q9967; U0003; U0005

== ENCOUNTER 2021-05-23 04:27 | Emergency (ER) | payer BC, OTHER, SELFPAY ==
[2021-05-23] VITALS (10 sets, daily range): BP systolic 107–144; BP diastolic 66–93; PULSE 59–86; RESP 12–22; TEMP 36.5–37.3; O2SAT 92–96; BMI 28.8
--- NOTE | 2021-05-23 04:36 | ECG_ITS ---
APPROVED REPORT Exam: Resting ECG HR:62 bpm ECG Measurements Heart Rate 62 AXES MS 154 P 44 QRSd 86 QRS -2 QT 472 T 40 QTc 479 Conclusion Normal sinus rhythm Minimal voltage criteria for LVH, may be normal variant Borderline ECG Electronically signed by : Jevon Donahue MD 05/24/2021 20:26:08
--- NOTE | 2021-05-23 04:41 | XR_ITS ---
PROCEDURE INFORMATION: Exam: XR Chest Exam date and time: 05/23/2021 4:41 AM Age: 65 years old Clinical indication: Cough and shortness of breath; Patient HX: Cough, SOA TECHNIQUE: Imaging protocol: XR of the chest. Views: 1 view. COMPARISON: CR XR CHEST 2V 01/08/2021 12:04 PM FINDINGS: Lungs: Pulmonary vascular congestion. Streaky left lower lobe airspace opacities. Pleural spaces: Unremarkable. No pleural effusion. No pneumothorax. Heart/Mediastinum: Cardiomediastinal silhouette is within normal limits. Bones/joints: Dextroscoliosis of the thoracic spine. Partially imaged ACDF hardware in the cervical spine. Changes of prior vertebral augmentation of a lumbar vertebral body. Intraperitoneal space: Surgical clips in the right upper quadrant. IMPRESSION: Pulmonary vascular congestion with streaky left lower lobe airspace opacities, which may reflect atelectasis versus pneumonia.
[2021-05-23 04:53] LABS: Coronavirus 19, PCR Not Detected (NotDetected); Influenza A, PCR Not Detected (NotDetected); Influenza B, PCR Not Detected (NotDetected)
[2021-05-23 04:55] LABS: Basophils # 0.1 K/mm3 (0-0.2); Eosinophils # 0.3 K/mm3 (0.0-0.4); Eosinophils % 4.1 % (0.1-12.0); Lymphocytes # 2.7 K/mm3 (0.7-4.5); Lymphocytes % 39.6 % (10-50); Mean Corpuscular HGB Conc 31.6 g/dL (31.8-35.4); Mean Corpuscular Hemoglobin 27.2 pg (27.0-31.2); Mean Corpuscular Volume 86.1 fl (81-99); Mean Platelet Volume 8.9 fl (7.4-10.4); Monocytes # 0.5 K/mm3 (0.1-1.0); Monocytes % 7.4 % (1.7-9.3); Neutrophils # 3.2 K/mm3 (1.8-7.8); Neutrophils % 47.9 % (37.0-80.0); Platelet Count 204 K/mm3 (142-424); Red Blood Count 4.76 M/mm3 (4.20-5.40); Red Cell Distribution Width 14.6 % (11.5-17.5); White Blood Count 6.7 K/mm3 (4.8-10.8)
[2021-05-23 04:57] LABS: Chloride 104 mmol/L (98-107); Potassium 3.9 mmoL/L (3.5-5.1); Sodium 144 mmol/L (136-145)
[2021-05-23 04:59] LABS: Blood Urea Nitrogen 11 mg/dl (7-17); Creatinine Clearance Estimated 78 mL/min (50-200); Estimated Glomerular Filt Rate 85 ml/min (>60); GFR (African American) 102 ML/MIN (>60)
[2021-05-23 05:00] LABS: Alanine Aminotransferase 15 U/L (12-78); Albumin Level 4.1 g/dl (3.5-5.0); Alkaline Phosphatase 95 U/L (38-126); Anion Gap 11.9 mEq/L (5-15); Aspartate Amino Transferase 27 U/L (14-36); Bilirubin,Direct 0.2 mg/dl (0.0-0.4); Bilirubin,Total 0.2 mg/dl (0.2-1.3); Bilirubin,Unconjugated 0.1 mg/dL (0.0-1.1); Calcium 8.9 mg/dl (8.4-10.2); Carbon Dioxide 32 mmol/L (22.0-30.0); Glucose 102 mg/dl (74-100); Total Protein,Serum 7.4 g/dl (6.3-8.2)
[2021-05-23 05:27] LABS: Troponin I < 0.01 ng/ml (0.00-0.034)
--- NOTE | 2021-05-23 05:34 | HMH.EDSOB ---
ED Disposition Clinical Impression: Acute exacerbation of chronic obstructive airways disease Disposition: Home, Self-Care Condition on Discharge: Good Instructions: DI for Chronic Obstructive Pulmonary Disease Additional Instructions: use meds and see pcp for follow up Prescriptions: levoFLOXacin [Levaquin 500mg tab] 500 mg PO DAILY #7 tab Transmission Status: Pending to [facility] Referrals: Louise Ramirez PA [Primary Care Provider] - - Critical Care Critical Care Time: No Attestation: On 05/23/21, the high probability of a clinically significant, sudden or life threatening deterioration of the following system(s) required my full and direct attention, intervention and personal management. The time I documented below is in addition to time spent performing reported procedures but includes the following listed in this critical care notation. Medical Decision Making - Medical Records Medical records reviewed: Yes: I reviewed the patient's medical records. - Vamsi Inquiry Pt receiving controlled substance: No Vital Signs: 05/23/21 04:27 05/23/21 04:46 05/23/21 05:01 Temperature 99.1 F 99.1 F Temperature Source Oral Oral Pulse Rate 59 L 60 Pulse Rate [Apical] 63 Respiratory Rate 12 16 21 Blood Pressure 112/66 115/68 Blood Pressure [Right Arm] 144/93 H Blood Pressure Mean 83 Blood Pressure Mean [Right Arm] 110 Blood Pressure Source [Right Arm] Automatic Cuff Blood Pressure Position [Right Arm] Supine 02 Sat by Pulse Oximetry 96 96 96 Oxygen Delivery Method Room Air Nasal Cannula Oxygen Flow Rate (LPM) 2 05/23/21 05:30 05/23/21 05:57 05/23/21 06:00 Temperature Temperature Source Pulse Rate 63 78 60 Pulse Rate [Apical] Respiratory Rate 15 20 Blood Pressure 114/78 115/73 Blood Pressure [Right Arm] Blood Pressure Mean 84 Blood Pressure Mean [Right Arm] Blood Pressure Source [Right Arm] Blood Pressure Position [Right Arm] 02 Sat by Pulse Oximetry 92 L 94 L Oxygen Delivery Method Oxygen Flow Rate (LPM) 05/23/21 06:30 05/23/21 07:00 Temperature Temperature Source Pulse Rate 67 61 Pulse Rate [Apical] Respiratory Rate 20 17 Blood Pressure 132/90 107/68 L Blood Pressure [Right Arm] Blood Pressure Mean 98 81 Blood Pressure Mean [Right Arm] Blood Pressure Source [Right Arm] Blood Pressure Position [Right Arm] 02 Sat by Pulse Oximetry 93 L 96 Oxygen Delivery Method Oxygen Flow Rate (LPM) - Lab Data Lab results reviewed: Yes: I reviewed the patient's lab results. Lab Results 05/23/21 04:37: WBC 6.7, RBC 4.76, Hgb 13.0, Hct 41.0, MCV 86.1, MCH 27.2, MCHC 31.6 L, RDW 14.6, Plt Count 204, MPV 8.9, Neut % (Auto) 47.9, Lymph % (Auto) 39.6, [place] % (Auto) 7.4, Eos % (Auto) 4.1, Baso % (Auto) 1.0, Neut # (Auto) 3.2, Lymph # (Auto) 2.7, [place] # (Auto) 0.5, Eos # (Auto) 0.3, Baso # (Auto) 0.1 05/23/21 04:37: Sodium 144, Potassium 3.9, Chloride 104, Carbon Dioxide 32 H, Anion Gap 11.9, BUN 11, Creatinine 0.70, Estimated Creat Clear 78, Estimated GFR 85, Est GFR ( Amer) 102, Glucose 102 H, Calcium 8.9, Total Bilirubin 0.2, Direct Bilirubin 0.2, Conjugated Bilirubin 0.0, Indirect Bilirubin 0.0, Unconjugated Bilirubin 0.1, AST 27, ALT 15, Alkaline Phosphatase 95, Troponin I < 0.01, Total Protein 7.4, Albumin 4.1 05/23/21 04:37: SARS-CoV-2 (PCR) Not detected, Influenza A Untype (PCR) Not detected, Influenza Type B (PCR) Not detected 05/23/21 04:37: NT-Pro-B Natriuret Pep 789 H 05/23/21 05:50: Specimen Source Right radial, O2 % 2 lpm nc, ABG pH 7.30 L, ABG pCO2 58.0 H, ABG pO2 70.2 L, ABG HCO3 27.8 H, ABG Total CO2 29.5 H, ABG O2 Saturation 93, ABG Base Excess 1.3, Sonu Test Patient unable 05/23/21 07:15: Urine Color Yellow, Urine Appearance Clear, Urine pH 6.0, Ur Specific [place] 1.020, Urine Protein Negative, Urine Glucose (UA) Negative, Urine Ketones Negative, Urine Blood Negative, Urine Nitrate Negative, Urine B
[2021-05-23 06:06] LABS: ABG Base Excess 1.3 mmol/L (-2.4-2.3); ABG HCO3 27.8 mmhg (22.0-26.0); ABG Oxygen Saturation 93 % (90-100); ABG PO2 70.2 mmhg (80-100); ABG TCO2 29.5 mmhg (23-27)
[2021-05-23 06:09] LABS: Allen's Test Patient Unable; Oxygen 2 LPM NC %; Source Right Radial
[2021-05-23 06:19] LABS: NT Pro Brain Natriuretic Pep. 789 pg/mL (0-125)
[2021-05-23 07:18] LABS: Microscopic, Urine URINE MICROSCOPIC (MICROSCOPIC)
[2021-05-23 07:20] LABS: Appearance,Urine CLEAR (Clear); Bilirubin,Urine Negative (Negative); Blood, Urine Negative (Negative); Color,Urine YELLOW (Yellow); Glucose,Urine (UA) Negative (Negative); Ketones,Urine Negative (Negative); Leukocyte Esterase,Urine Negative (Negative); Nitrate,Urine Negative (Negative); Protein,Urine Negative (Negative)
--- NOTE | 2021-05-23 07:28 | PC.NURSE ---
pt got out of bed and walked to the bathroom with the assistants of MICKY Cordero
[2021-05-23 07:33] LABS: Amphetamine/Metha Screen,Urine Negative ng/ml (<1000); Barbiturates Screen,Urine Negative ng/ml (<200)
[2021-05-23 07:34] LABS: Benzodiazepines Screen,Urine Negative ng/ml (<200)
[2021-05-23 07:35] LABS: Cannabinoid Screen,Urine Negative ng/ml (<50); Cocaine Screen,Urine Negative ng/ml (<300)
[2021-05-23 07:36] LABS: Methadone Screen,Urine Positive ng/ml (<300); Phencyclidine Screen,Urine Negative ng/ml (<25)
[2021-05-23 07:37] LABS: Opiate Screen,Urine Positive ng/ml (<300)
--- NOTE | 2021-05-23 07:38 | PC.NURSE ---
pt requested to be taken off bipap
== END 2021-05-23 08:17 | disposition home or self-care (01) ==
PROVIDERS: Emergency Provider Emergency Medicine; PCP Physician Assistant
DX: J44.1 Chronic obstructive pulmonary disease with (acute) exacerbation (principal); K21.9 Gastro-esophageal reflux disease without esophagitis; Z20.822 Contact with and (suspected) exposure to COVID-19
CPT/HCPCS: 71045; 80048; 80076; 80305; 81001; 82803; 83880; 84484; 85025; 93005; 96365; 96367; 96375; 99283; C9803; J1956; U0003; U0005

== ENCOUNTER → 2021-07-19 13:38 | Outpatient (CLI) | payer BC, OTHER, SELFPAY ==
--- NOTE | 2021-07-19 13:47 | XR_ITS ---
FINAL REPORT TECHNIQUE: Chest PA & Lateral CLINICAL HISTORY: shortness of breath, chest pain on right side COMPARISON: May 23, 2021 FINDINGS: 2 views of the chest were performed. The heart size is normal. The mediastinum is within normal limits. There are chronic changes at the lung bases. There are no pleural effusions. There is no pneumothorax. There is 35? of thoracic scoliosis convex to the right. IMPRESSION: Chronic changes at the lung bases. No acute process. Reviewed, Interpreted and Dictated by Chele Lloyd MD Transcribed by Elsi Perez Authenticated by Chele Lloyd MD on 07/19/2021 03:17:[address] [facility]
[2021-07-19 15:02] LABS: 25-OH Vitamin D, Total 29.2 ng/mL (30-100)
[2021-07-19 15:04] LABS: Basophils # 0.1 K/mm3 (0-0.2); Basophils % 0.9 % (0.1-2.0); Eosinophils # 0.3 K/mm3 (0.0-0.4); Eosinophils % 3.2 % (0.1-12.0); Hematocrit 45.3 % (37.0-47.0); Hemoglobin 14.1 g/dL (12.2-16.2); Lymphocytes # 2.7 K/mm3 (0.7-4.5); Lymphocytes % 34.2 % (10-50); Mean Corpuscular HGB Conc 31.1 g/dL (31.8-35.4); Mean Corpuscular Volume 86.9 fl (81-99); Mean Platelet Volume 10.1 fl (7.4-10.4); Monocytes # 0.7 K/mm3 (0.1-1.0); Monocytes % 8.4 % (1.7-9.3); Neutrophils # 4.2 K/mm3 (1.8-7.8); Neutrophils % 53.2 % (37.0-80.0); Platelet Count 241 K/mm3 (142-424); Red Blood Count 5.21 M/mm3 (4.20-5.40); Red Cell Distribution Width 16.2 % (11.5-17.5)
[2021-07-19 15:29] LABS: Erythrocyte Sedimentation Rate 8 mm/hr (0-30)
[2021-07-19 15:32] LABS: Chloride 103 mmol/L (98-107); Potassium 4.8 mmoL/L (3.5-5.1); Sodium 142 mmol/L (136-145)
[2021-07-19 15:34] LABS: Alanine Aminotransferase 17 U/L (12-78); Alkaline Phosphatase 85 U/L (38-126); Aspartate Amino Transferase 26 U/L (14-36); Bilirubin,Total 0.3 mg/dl (0.2-1.3); Blood Urea Nitrogen 14 mg/dl (7-17); Estimated Glomerular Filt Rate 72 ml/min (>60); GFR (African American) 87 ML/MIN (>60)
[2021-07-19 15:35] LABS: Albumin Level 4.4 g/dl (3.5-5.0); Albumin/Globulin Ratio 1.3 (1.1-1.8); Anion Gap 11.8 mEq/L (5-15); Calcium 9.6 mg/dl (8.4-10.2); Carbon Dioxide 32 mmol/L (22.0-30.0); Chol/HDL Ratio 4.5 (1-3.5); Cholesterol 161 mg/dl (140-200); Globulin 3.3 g/dL (1.3-3.2); Glucose 72 mg/dl (74-100); HDL Cholesterol 36 mg/dl (40-60); Total Protein,Serum 7.7 g/dl (6.3-8.2); Triglycerides 137 mg/dl (30-150); VLDL Cholesterol 27 mg/dL (0-40)
[2021-07-19 15:41] LABS: C-Reactive Protein 2.9 mg/L (0-4)
[2021-07-19 15:46] LABS: Direct LDL Cholesterol 93.58 mg/dL (100-129)
[2021-07-19 16:06] LABS: Thyroid Stimulating Hormone 2.32 uIU/mL (0.465-4.68)
[2021-07-21 08:18] LABS: Alpha-1-Antitrypsin 154 mg/dL (101-187)
[2021-07-23 12:44] LABS: Anti-Centromere B Antibodies <0.2 AI (0.0-0.9); Anti-DNA (DS) Ab Qn <1 IU/mL (0-9); Anti-Jo-1 <0.2 AI (0.0-0.9); Anti-Smith Antibody <0.2 AI (0.0-0.9); Antichromatin Antibodies <0.2 AI (0.0-0.9); Antiscleroderma-70 Antibodies 0.5 AI (0.0-0.9); RNP Antibodies <0.2 AI (0.0-0.9); Sjogren's Anti-SS-A <0.2 AI (0.0-0.9); Sjogren's Anti-SS-B <0.2 AI (0.0-0.9)
[2021-07-23 23:07] LABS: Anti-Cyclic Citrullinated Pept 5 units (0-19)
[2021-07-24 17:16] LABS: Perinuclear (P-ANCA) <1:20 titer (Neg:<1:20)
[2021-07-24 22:08] LABS: Aspergillus flavus Negative (Neg:<1:1); Aspergillus fumigatus Negative (Neg:<1:1); Aspergillus niger Negative (Neg:<1:1); Blastomyces Antibody Negative (Neg:<1:1)
[2021-07-25 12:21] LABS: Aspergillus fumigatus IgG Negative (Negative); Pigeon Serum Abs Negative (Negative)
[2021-07-26 12:22] LABS: D001-IgE D pteronyssinus <0.10 kU/L (Class 0); D002-IgE D farinae <0.10 kU/L (Class 0); E001-IgE Cat Dander <0.10 kU/L (Class 0); E005-IgE Dog Dander <0.10 kU/L (Class 0); E072-IgE Mouse Urine <0.10 kU/L (Class 0); G002-IgE Bermuda Grass <0.10 kU/L (Class 0); G006-IgE Timothy Grass <0.10 kU/L (Class 0); I006-IgE Cockroach, German <0.10 kU/L (Class 0); Immunoglobulin E, Total 22 IU/mL (6-495); M001-IgE Penicillium chrysogen <0.10 kU/L (Class 0); M002-IgE Cladosporium herbarum <0.10 kU/L (Class 0); M003-IgE Aspergillus fumigatus <0.10 kU/L (Class 0); M006-IgE Alternaria alternata <0.10 kU/L (Class 0); T001-IgE Maple/Box Elder <0.10 kU/L (Class 0); T003-IgE Common Silver Birch <0.10 kU/L (Class 0); T006-IgE Cedar, Mountain <0.10 kU/L (Class 0); T007-IgE Oak, White <0.10 kU/L (Class 0); T008-IgE Elm, American <0.10 kU/L (Class 0); T010-IgE Walnut <0.10 kU/L (Class 0); T011-IgE Maple Leaf Sycamore <0.10 kU/L (Class 0); T014-IgE Cottonwood <0.10 kU/L (Class 0); T015-IgE Ash, White <0.10 kU/L (Class 0); T022-IgE Pecan, Hickory <0.10 kU/L (Class 0); T070-IgE White Mulberry <0.10 kU/L (Class 0); W001-IgE Ragweed, Short <0.10 kU/L (Class 0); W011-IgE Thistle, Russian <0.10 kU/L (Class 0); W014-IgE Pigweed, Common <0.10 kU/L (Class 0); W018-IgE Sheep Sorrel <0.10 kU/L (Class 0)
== END ==
PROVIDERS: PCP Emergency Medicine; Visit Provider Physician Assistant
DX: R06.02 Shortness of breath (principal); E55.9 Vitamin D deficiency, unspecified
CPT/HCPCS: 36415; 71046; 80053; 80061; 82103; 82306; 82785; 84443; 85025; 85651; 86003; 86140; 86200; 86225; 86235; 86256; 86331; 86602; 86606; 86609; 86612

== ENCOUNTER 2021-07-29 14:12 | Observation (INO) | payer BC, OTHER, SELFPAY ==
[2021-07-29] VITALS (13 sets, daily range): BP systolic 137–158; BP diastolic 76–101; PULSE 71–89; RESP 14–20; TEMP 36.7–36.8; O2SAT 93–99; BMI 27.3
--- NOTE | 2021-07-29 14:19 | HMH.EDGENADL ---
ED Disposition Clinical Impression: Xanax overdose Gabapentin overdose Qualifiers: Encounter type: initial encounter Injury intent: accidental or unintentional Qualified Code(s): T42.6X1A - Poisoning by other antiepileptic and sedative-hypnotic drugs, accidental (unintentional), initial encounter Pneumonia, community acquired Qualifiers: Laterality: left Lung location: lower lobe of lung Qualified Code(s): J18.9 - Pneumonia, unspecified organism Disposition: Admitted as Observation Condition on Discharge: Fair Referrals: Roberto Carlos Feldman MD [Primary Care Provider] - - Critical Care Critical Care Time: No Attestation: On 07/29/21, the high probability of a clinically significant, sudden or life threatening deterioration of the following system(s) required my full and direct attention, intervention and personal management. The time I documented below is in addition to time spent performing reported procedures but includes the following listed in this critical care notation. Medical Decision Making - Vamsi Inquiry Pt receiving controlled substance: No Vamsi was queried for this patient: Yes Vital Signs: 07/29/21 14:14 07/29/21 14:19 07/29/21 14:30 Temperature 98.2 F Temperature Source Oral Pulse Rate 89 82 Pulse Rate [Left Radial] 88 Respiratory Rate 16 20 16 Blood Pressure 143/97 H 147/101 H Blood Pressure [Right Arm] 143/97 H Blood Pressure Mean 119 110 Blood Pressure Mean [Right Arm] 112 Blood Pressure Source [Right Arm] Automatic Cuff Blood Pressure Position [Right Arm] Sitting 02 Sat by Pulse Oximetry 98 94 L 97 Oxygen Delivery Method Nasal Cannula Room Air Nasal Cannula Oxygen Flow Rate (LPM) 2 2 07/29/21 14:56 07/29/21 15:01 07/29/21 15:30 Temperature Temperature Source Pulse Rate 84 83 81 Pulse Rate [Left Radial] Respiratory Rate 16 16 Blood Pressure 139/87 145/100 H 150/87 H Blood Pressure [Right Arm] Blood Pressure Mean 110 114 Blood Pressure Mean [Right Arm] Blood Pressure Source [Right Arm] Blood Pressure Position [Right Arm] 02 Sat by Pulse Oximetry 96 96 98 Oxygen Delivery Method Nasal Cannula Oxygen Flow Rate (LPM) 2 07/29/21 16:00 07/29/21 16:15 Temperature Temperature Source Pulse Rate 81 81 Pulse Rate [Left Radial] Respiratory Rate 16 Blood Pressure 138/91 H Blood Pressure [Right Arm] Blood Pressure Mean 106 Blood Pressure Mean [Right Arm] Blood Pressure Source [Right Arm] Blood Pressure Position [Right Arm] 02 Sat by Pulse Oximetry 97 98 Oxygen Delivery Method Nasal Cannula Oxygen Flow Rate (LPM) 2 - Lab Data Lab Results 07/29/21 14:40: WBC 11.7 H, RBC 5.75 H, Hgb 15.1, Hct 48.7 H, MCV 84.7, MCH 26.3 L, MCHC 31.1 L, RDW 15.9, Plt Count 298, MPV 8.5, Neut % (Auto) 84.7 H, Lymph % (Auto) 10.2, [place] % (Auto) 3.4, Eos % (Auto) 0.9, Baso % (Auto) 0.7, Neut # (Auto) 9.9 H, Lymph # (Auto) 1.2, [place] # (Auto) 0.4, Eos # (Auto) 0.1, Baso # (Auto) 0.1 07/29/21 14:40: Sodium 136, Potassium 3.8, Chloride 100, Carbon Dioxide 23, Anion Gap 16.8 H, BUN 12, Creatinine 0.90, Estimated Creat Clear 73, Estimated GFR 63, Est GFR ( Amer) 76, Glucose 111 H, Calcium 9.8, Total Bilirubin 0.6, AST 39 H, ALT 29, Alkaline Phosphatase 116, Total Protein 9.0 H, Albumin 4.8, Globulin 4.2 H, Albumin/Globulin Ratio 1.1, Salicylates < 1.0 L, Acetaminophen < 10 L 07/29/21 14:40: Plasma/Serum Alcohol < 10 07/29/21 15:43: SARS-CoV-2 (PCR) Not detected, Influenza A Untype (PCR) Not detected, Influenza Type B (PCR) Not detected 07/29/21 17:07: Urine Opiates Screen Negative, Urine Methadone Screen Positive H, Ur Barbituates Screen Negative, Ur Phencyclidine Scrn Negative, Ur Amphetamines Screen Negative, U Benzodiazepines Scrn Positive H, Urine Cocaine Screen Negative, U Marijuana (THC) Screen Negative 07/29/21 17:07: Urine Color Yellow, Urine Appearance Clear, Urine pH 6.5, Ur Specific [place] 1.025, Urine Protein Trace, Urine Glucose (UA)
--- NOTE | 2021-07-29 14:39 | ECG_ITS ---
APPROVED REPORT Exam: Resting ECG HR:84 bpm ECG Measurements Heart Rate 84 AXES DE 184 P 53 QRSd 91 QRS 1 QT 400 T 59 QTc 441 Conclusion SINUS RHYTHM POSSIBLE ANTERIOR MYOCARDIAL INFARCTION , PROBABLY OLD [30 ms Q WAVE IN V3/V4, OR R < 0.2 mV IN V4] BORDERLINE ECG UNCONFIRMED REPORT Electronically signed by : Jevon Donahue MD 07/30/2021 20:36:07
--- NOTE | 2021-07-29 14:51 | XR_ITS ---
PROCEDURE INFORMATION: Exam: XR Chest Exam date and time: 07/29/2021 2:51 PM Age: 66 years old Clinical indication: Shortness of breath and other: Shaking and vomitting; Additional info: SOB, vomiting, shaking, covid test pending TECHNIQUE: Imaging protocol: XR of the chest. Views: 1 view. COMPARISON: CR XR CHEST 2V 07/19/2021 1:52 PM FINDINGS: Lungs: Atelectasis and/or early infiltrative changes noted within the left lung base. Pleural spaces: There is no evidence of pneumothorax. There are no pleural effusions present. Heart/Mediastinum: Unremarkable. No cardiomegaly. Bones/joints: Postoperative changes of the cervical spine. Scoliotic changes of the thoracic spine with degenerative changes. IMPRESSION: 1. Atelectasis and/or early infiltrative changes noted within the left lung base. 2. Scoliotic changes of the thoracic spine with degenerative changes.
[2021-07-29 14:58] LABS: Basophils # 0.1 K/mm3 (0-0.2); Basophils % 0.7 % (0.1-2.0); Eosinophils # 0.1 K/mm3 (0.0-0.4); Eosinophils % 0.9 % (0.1-12.0); Hematocrit 48.7 % (37.0-47.0); Hemoglobin 15.1 g/dL (12.2-16.2); Lymphocytes # 1.2 K/mm3 (0.7-4.5); Lymphocytes % 10.2 % (10-50); Mean Corpuscular HGB Conc 31.1 g/dL (31.8-35.4); Mean Corpuscular Hemoglobin 26.3 pg (27.0-31.2); Mean Corpuscular Volume 84.7 fl (81-99); Mean Platelet Volume 8.5 fl (7.4-10.4); Monocytes # 0.4 K/mm3 (0.1-1.0); Monocytes % 3.4 % (1.7-9.3); Neutrophils # 9.9 K/mm3 (1.8-7.8); Neutrophils % 84.7 % (37.0-80.0); Platelet Count 298 K/mm3 (142-424); Red Blood Count 5.75 M/mm3 (4.20-5.40); Red Cell Distribution Width 15.9 % (11.5-17.5); White Blood Count 11.7 K/mm3 (4.8-10.8)
--- NOTE | 2021-07-29 14:58 | PC.NURSE ---
radiology bedside to do chest x ray.
--- NOTE | 2021-07-29 15:00 | PC.NURSE ---
pt requesting ice water. Ice water given at this time.
[2021-07-29 15:02] LABS: Chloride 100 mmol/L (98-107)
[2021-07-29 15:03] LABS: Potassium 3.8 mmoL/L (3.5-5.1); Sodium 136 mmol/L (136-145)
[2021-07-29 15:05] LABS: Alanine Aminotransferase 29 U/L (12-78); Albumin Level 4.8 g/dl (3.5-5.0); Albumin/Globulin Ratio 1.1 (1.1-1.8); Alkaline Phosphatase 116 U/L (38-126); Anion Gap 16.8 mEq/L (5-15); Aspartate Amino Transferase 39 U/L (14-36); Bilirubin,Total 0.6 mg/dl (0.2-1.3); Blood Urea Nitrogen 12 mg/dl (7-17); Carbon Dioxide 23 mmol/L (22.0-30.0); Creatinine Clearance Estimated 73 mL/min (50-200); Estimated Glomerular Filt Rate 63 ml/min (>60); GFR (African American) 76 ML/MIN (>60); Globulin 4.2 g/dL (1.3-3.2)
[2021-07-29 15:06] LABS: Calcium 9.8 mg/dl (8.4-10.2); Glucose 111 mg/dl (74-100)
[2021-07-29 15:10] LABS: Acetaminophen < 10 ug/ml (10-30); Ethyl Alcohol < 10 mg/dl (0-10); Salicylate < 1.0 mg/dL (2.0-20.0)
[2021-07-29 15:48] LABS: Coronavirus 19, PCR Not Detected (NotDetected); Influenza A, PCR Not Detected (NotDetected); Influenza B, PCR Not Detected (NotDetected)
--- NOTE | 2021-07-29 16:23 | PC.NURSE ---
pt placed on the bedpan at this time. Couldn't get up into the wheelchair with assistance of one; requested bedpan.
--- NOTE | 2021-07-29 16:25 | PC.NURSE ---
Updated family at pt status. Daughter aware that pt could of taken to much of her prescribed medicine, daughter states that she could of told us that due to her mother doing that alot
--- NOTE | 2021-07-29 17:09 | PC.NURSE ---
helped the nurse with straight cath to obtain urine. Urine specimen collected and sent to the lab
[2021-07-29 17:13] LABS: Microscopic, Urine URINE MICROSCOPIC (MICROSCOPIC)
[2021-07-29 17:18] LABS: Appearance,Urine CLEAR (Clear); Bilirubin,Urine Negative (Negative); Blood, Urine 1+ (Negative); Color,Urine YELLOW (Yellow); Glucose,Urine (UA) Negative (Negative); Ketones,Urine Negative (Negative); Leukocyte Esterase,Urine Negative (Negative); Nitrate,Urine Negative (Negative); PH,Urine 6.5 (5.0-8.5); Protein,Urine TRACE (Negative); Specific Gravity, Urine 1.025 (1.005-1.030)
[2021-07-29 17:28] LABS: Benzodiazepines Screen,Urine Positive ng/ml (<200)
[2021-07-29 17:29] LABS: Amphetamine/Metha Screen,Urine Negative ng/ml (<1000)
[2021-07-29 17:30] LABS: Barbiturates Screen,Urine Negative ng/ml (<200); Cannabinoid Screen,Urine Negative ng/ml (<50)
[2021-07-29 17:31] LABS: Cocaine Screen,Urine Negative ng/ml (<300)
[2021-07-29 17:32] LABS: Methadone Screen,Urine Positive ng/ml (<300); Opiate Screen,Urine Negative ng/ml (<300)
[2021-07-29 17:33] LABS: Phencyclidine Screen,Urine Negative ng/ml (<25)
--- NOTE | 2021-07-29 17:56 | PC.NURSE ---
Dr Mitchel sharp.
--- NOTE | 2021-07-29 17:57 | PC.NURSE ---
on the phone with
--- NOTE | 2021-07-29 19:49 | PC.NURSE ---
patient up to floor via wheelchair @ this time
[2021-07-30 04:00] VITALS: BP 150/68; PULSE 60; RESP 17; TEMP 36.8; O2SAT 94
[2021-07-30 05:38] VITALS: BMI 29.0
--- NOTE | 2021-07-30 06:01 | PC.NURSE ---
Pt has slept well this shift. Pt remains on room air with O2 sats >90%. Pt has received PRN ativan x2 this shift for tremors. Pt voiced x2 c/o of nausea, medicated per MAR with relief. Pt is standby assist to bathroom.
--- NOTE | 2021-07-30 07:28 | HMH.PHAVTE ---
[facility] VTE Monitoring - Patient Demographics Admission date: 07/29/21 Report Date: 07/30/21 Time: 07:28 Allergies/Adverse Reactions: Patient Allergies No Known Allergies Allergy (Verified 07/19/21 12:56) Height: 1.73 m Weight: 87.09 kg Patient Problems: Current Active Problems (Last Updated 03/13/21 @ 15:58 by Lauren Griffiths RN) Xanax overdose (Acute) Gabapentin overdose (Acute) Pneumonia, community acquired (Acute) - VTE Risk Labs: VTE Related Lab Results Hgb 15.1 g/dL (12.2-16.2) 07/29/21 14:40 Hct 48.7 % (37.0-47.0) H 07/29/21 14:40 Plt Count 298 K/mm3 (142-424) 07/29/21 14:40 BUN 12 mg/dl (7-17) 07/29/21 14:40 Creatinine 0.90 mg/dl (0.52-1.04) 07/29/21 14:40 Estimated Creat Clear 73 mL/min (50-200) 07/29/21 14:40 Was VTE Risk Assessment Performed: Yes VTE Score: 3 VTE Risk Level: Low Risk Clinical Trial Participant: No - Prophylaxis VTE Prophylaxis Ordered?: Yes Types of VTE Prophylaxis: TEDS Knee High
--- NOTE | 2021-07-30 07:33 | HMH.PHAINT ---
verified home medication list using list from [facility]
[2021-07-30 08:00] VITALS: BP 144/83; PULSE 68; RESP 16; TEMP 36.7; O2SAT 92
[2021-07-30 08:50] LABS: Basophils # 0.1 K/mm3 (0-0.2); Basophils % 0.5 % (0.1-2.0); Eosinophils # 0.1 K/mm3 (0.0-0.4); Eosinophils % 0.7 % (0.1-12.0); Hematocrit 40.8 % (37.0-47.0); Lymphocytes % 19.5 % (10-50); Mean Corpuscular HGB Conc 31.6 g/dL (31.8-35.4); Mean Corpuscular Hemoglobin 26.9 pg (27.0-31.2); Mean Corpuscular Volume 85.4 fl (81-99); Mean Platelet Volume 8.2 fl (7.4-10.4); Monocytes # 0.4 K/mm3 (0.1-1.0); Monocytes % 4.2 % (1.7-9.3); Neutrophils # 7.8 K/mm3 (1.8-7.8); Neutrophils % 75.1 % (37.0-80.0); Platelet Count 242 K/mm3 (142-424); Red Blood Count 4.78 M/mm3 (4.20-5.40); White Blood Count 10.4 K/mm3 (4.8-10.8)
--- NOTE | 2021-07-30 08:56 | SW/DCPLANNER ---
The plan for this patient is to return home today with close follow up at Dr Feldman office. Patient has no further needs at this time.
[2021-07-30 08:59] LABS: Chloride 105 mmol/L (98-107); Hemoglobin 12.8 g/dL (12.2-16.2); Sodium 136 mmol/L (136-145)
[2021-07-30 09:00] LABS: Potassium 3.8 mmoL/L (3.5-5.1)
[2021-07-30 09:02] LABS: Blood Urea Nitrogen 11 mg/dl (7-17); Creatinine Clearance Estimated 78 mL/min (50-200); Estimated Glomerular Filt Rate 84 ml/min (>60); GFR (African American) 102 ML/MIN (>60)
[2021-07-30 09:03] LABS: Anion Gap 10.8 mEq/L (5-15); Calcium 8.7 mg/dl (8.4-10.2); Carbon Dioxide 24 mmol/L (22.0-30.0); Glucose 107 mg/dl (74-100)
--- NOTE | 2021-07-30 09:29 | HMH.HPDC ---
General - General Admission date:: 07/29/21 Discharge date: 07/30/21 *Admission Date: 07/29/21 *Chief complaint: over dose *History of present illness: 66 yr old female Brought in by ambulance to ed with complains of vomiting and shaking that started this morning. Patient states I took too much of my medication, Pt states she was hurting so she just kept taking more meds to stop the pain. Patient states she was not trying to hurt herself, just was in pain. Pt states she has had 8 back surgeries and this causes her pain. states she sees a pain clinic and has only been on methadone for 2 months. She has taken more than prescribed amounts of Xanax and gabapentin. She says that she finished all of those medications yesterday. per ED note:Review of her pill bottles shows that she was prescribed Xanax 0.5 mg to be taken 3 times a day on 07/19/2021, 90 tablets of which there are 0 left in the bottle.Gabapentin 800 mg to be taken 3 times a day prescribed on 07/19/2021, 90 tablets of which there are 3 left.Also has prescriptions for methadone and oxycodone filled on 07/04/2021, states she no longer takes these, bottles are empty. Has a bottle for methocarbamol 750 mg also empty, filled on 07/06/2021. Pt was admitted to monitor, chest xray:Atelectasis and/or early infiltrative changes noted within the left lung base, pt states vomiting and nausea. [facility] History I have reviewed the patient's past medical history: Yes Medical History: Reports:: Anxiety, Gastroesophageal Reflux Disease(GERD), Hypertension Denies:: Cancer, Diabetes Mellitus Type 1, Diabetes Mellitus Type 2, Internal Pacemaker, MRSA, Seizures *Have you ever received a pneumonia vaccine?: No *Have you received a flu vaccine this season?: Yes Other Medical History: Reports: Arthritis, Other Laterality Cases: Bilateral: Tonsillectomy Other Surgeries: Yes: Appendectomy, Cardiac Catheterization, Cholecystectomy, Colonoscopy, Hysterectomy-Partial, Tubal Ligation, Other. No: Pacemaker Amputation: No Fractures: Yes - *Social History Smoking Status: Never smoker Alcohol Intake: never Substance Use Type: denies use *Occupational Status:: disabled Housing: house Household Members: significant other *Travel in the last 8 weeks: None - Psychiatric History Pschychiatric History:: Reports:: Anxiety Family Hx:: No significant family history Review of Systems - Review of Systems Review of systems:: pertinent systems reviewed and negative unless documented below - Constitutional Denies body ache(s), Denies fatigue, Denies weight loss - Eyes Denies change in vision - ENT Denies abnormal hearing - *Cardiovascular Denies chest pain at rest - *Respiratory Denies change in phlegm color, Denies cough, Denies shortness of breath, Denies shortness of breath with activity, Denies excessive phlegm production - *Gastrointestinal Denies abdominal pain - *Genitourinary Denies abnormal periods - *Musculoskeletal Reports back pain, Denies abnormal walking - Integumentary/Breasts Denies rash - *Neurologic Reports tremor(s), Denies abnormal walking, Denies dizziness, Denies headache(s) - Psychiatric Denies abnormal sleep pattern - Endocrine Denies cold intolerance - Hematologic/Lymphatic Denies easy bruising - Allergic/Immunologic Denies itchy eyes Exam Vital signs and Labs for Last 24 Hours: Temp Pulse Resp BP Pulse Ox 98.1 F 68 16 144/83 H 92 L 07/30/21 08:00 07/30/21 08:00 07/30/21 08:00 07/30/21 08:00 07/30/21 08:00 Laboratory Results - last 24 hr 07/29/21 14:40: WBC 11.7 H, RBC 5.75 H, Hgb 15.1, Hct 48.7 H, MCV 84.7, MCH 26.3 L, MCHC 31.1 L, RDW 15.9, Plt Count 298, MPV 8.5, Neut % (Auto) 84.7 H, Lymph % (Auto) 10.2, [place] % (Auto) 3.4, Eos % (Auto) 0.9, Baso % (Auto) 0.7, Neut # (Auto) 9.9 H, Lymph # (Auto) 1.2, [place] # (Auto) 0.4, Eos # (Auto) 0.1, Baso # (Auto) 0.1 07/29/21 14:40: Sodium 136, Potassium 3.8, Chloride 100, Carbon Dioxide 23, Anion Gap 16
== END 2021-07-30 12:31 | disposition home or self-care (01) ==
LOC: ER 18:14 → 2ND 18:22
PROVIDERS: Nurse Practitioner Family; Admitting Provider Family Medicine; Emergency Provider Emergency Medicine; PCP Emergency Medicine; Visit Provider Emergency Medicine
DX: T42.4X1A Poisoning by benzodiazepines, accidental (unintentional), initial encounter (principal); T42.6X1A Poisoning by other antiepileptic and sedative-hypnotic drugs, accidental (unintentional), initial encounter; T40.3X1A Poisoning by methadone, accidental (unintentional), initial encounter; I10 Essential (primary) hypertension; K21.9 Gastro-esophageal reflux disease without esophagitis; J18.9 Pneumonia, unspecified organism; G89.29 Other chronic pain; M54.50 Low back pain, unspecified; Z20.822 Contact with and (suspected) exposure to COVID-19
CPT/HCPCS: 71045; 80048; 80053; 80305; 80329; 81001; 85025; 93005; 96365; 96367; 96375; 99284; C9803; G0378; J0456; J0696; J2405; U0003; U0005

== ENCOUNTER → 2021-11-07 10:08 | Outpatient (CLI) | payer BC, OTHER, SELFPAY ==
--- NOTE | 2021-11-07 10:16 | XR_ITS ---
FINAL REPORT CLINICAL HISTORY: shortness of breath; patient kyphotic; scoliosis, unable to stand up straight COMPARISON: July 29, 2021 FINDINGS: Two views of the chest were obtained. The heart size and pulmonary vascularity are within normal limits. There is a moderate hiatal hernia. There is bronchial wall thickening consistent with bronchitis.. There is no pneumothorax. There is dextroscoliosis of the thoracic spine. There are postoperative changes in the lower cervical spine. IMPRESSION: Findings consistent with bronchitis. Degenerative and postoperative changes as above. Reviewed, Interpreted and Dictated by Gabo Clark III, MD Transcribed by Eulalia Corley Authenticated by Gabo Clark III, MD on 11/07/2021 11:42:24 AM [facility]
[2021-11-07 10:51] LABS: Basophils # 0.1 K/mm3 (0-0.2); Basophils % 1.4 % (0.1-2.0); Eosinophils # 0.3 K/mm3 (0.0-0.4); Eosinophils % 3.7 % (0.1-12.0); Hematocrit 43.5 % (37.0-47.0); Hemoglobin 13.8 g/dL (12.2-16.2); Lymphocytes # 3.1 K/mm3 (0.7-4.5); Mean Corpuscular HGB Conc 31.7 g/dL (31.8-35.4); Mean Corpuscular Hemoglobin 27.5 pg (27.0-31.2); Mean Corpuscular Volume 86.8 fl (81-99); Mean Platelet Volume 8.4 fl (7.4-10.4); Monocytes # 0.7 K/mm3 (0.1-1.0); Monocytes % 7.7 % (1.7-9.3); Neutrophils # 4.4 K/mm3 (1.8-7.8); Neutrophils % 51.2 % (37.0-80.0); Platelet Count 291 K/mm3 (142-424); Red Blood Count 5.01 M/mm3 (4.20-5.40); Red Cell Distribution Width 16.1 % (11.5-17.5); White Blood Count 8.6 K/mm3 (4.8-10.8)
[2021-11-07 11:26] LABS: Chloride 106 mmol/L (98-107); Sodium 142 mmol/L (136-145)
[2021-11-07 11:27] LABS: Potassium 4.7 mmoL/L (3.5-5.1)
[2021-11-07 11:29] LABS: Alanine Aminotransferase 16 U/L (12-78); Albumin Level 3.9 g/dl (3.5-5.0); Albumin/Globulin Ratio 1.3 (1.1-1.8); Alkaline Phosphatase 86 U/L (38-126); Anion Gap 12.7 mEq/L (5-15); Aspartate Amino Transferase 27 U/L (14-36); Bilirubin,Total 0.3 mg/dl (0.2-1.3); Blood Urea Nitrogen 11 mg/dl (7-17); Carbon Dioxide 28 mmol/L (22.0-30.0); Estimated Glomerular Filt Rate 84 ml/min (>60); GFR (African American) 102 ML/MIN (>60); Total Protein,Serum 6.9 g/dl (6.3-8.2)
[2021-11-07 11:30] LABS: Calcium 9.7 mg/dl (8.4-10.2); Glucose 92 mg/dl (74-100)
== END ==
PROVIDERS: PCP Physician Assistant; Visit Provider Physician Assistant
DX: R06.02 Shortness of breath (principal); J44.1 Chronic obstructive pulmonary disease with (acute) exacerbation
CPT/HCPCS: 36415; 71046; 80053; 85025

== ENCOUNTER 2022-02-03 14:26 | Emergency (ER) | payer OTHER, SELFPAY ==
[2022-02-03] VITALS (18 sets, daily range): BP systolic 117–152; BP diastolic 74–92; PULSE 58–81; RESP 15–22; TEMP 36.6–37; O2SAT 86–97; BMI 28.8
--- NOTE | 2022-02-03 14:23 | ECG_ITS ---
APPROVED REPORT Exam: Resting ECG HR:79 bpm ECG Measurements Heart Rate 79 AXES [place] 171 P 38 QRSd 89 QRS -10 QT 417 T 34 QTc 451 Conclusion SINUS RHYTHM MINIMAL VOLTAGE CRITERIA FOR LVH, CONSIDER NORMAL VARIANT [MEETS CRITERIA IN ONE OF: R(aVL), S(V1), R(V5), R(V5/V6)+S(V1)] INFERIOR MYOCARDIAL INFARCTION , PROBABLY OLD [40+ ms Q WAVE AND/OR ST/T ABNORMALITY IN II/aVF] ABNORMAL ECG UNCONFIRMED REPORT Electronically signed by : Jevon Donahue MD 02/04/2022 14:29:00
--- NOTE | 2022-02-03 14:34 | XR_ITS ---
PROCEDURE INFORMATION: Exam: XR Chest Exam date and time: 02/03/2022 3:01 PM Age: 66 years old Clinical indication: Sternal or substernal pain; Additional info: Cp TECHNIQUE: Imaging protocol: Radiologic exam of the chest. Views: 1 view. COMPARISON: CR XR CHEST 2V 11/07/2021 10:32 AM FINDINGS: Lungs: Unremarkable. No consolidation. Pleural spaces: Unremarkable. No pleural effusion. No pneumothorax. Heart/Mediastinum: Again demonstrated is hiatal hernia. Stable cardiac silhouette Bones/joints: Vertebroplasty in the lower thoracic spine. Anterior cervical fusion. Dextroscoliosis of the thoracic spine IMPRESSION: No acute process
--- NOTE | 2022-02-03 14:38 | HMH.EDGENADL ---
ED Disposition Clinical Impression: Atypical chest pain, COVID-19 virus infection Disposition: Home, Self-Care Condition on Discharge: Good Instructions: DI for Atypical Chest Pain, DI for COVID-19 (Suspected or Confirmed ) Additional Instructions: Continue your current medications. Additional instructions for CHEST PAIN: See your physician as soon as possible for further evaluation. Return immediately if worsening chest pain, vomiting, shortness of breath, fever, coughing of blood. ADDITIONAL INSTRUCTIONS FOR COVID-19: Rest, drink plenty of fluids. Tylenol or Ibuprofen for fever and/or aches and pains. Monitor your symptoms. IF YOU HAVE AN EMERGENCY WARNING SIGN (INCLUDING TROUBLE BREATHING), SEEK EMERGENCY MEDICAL CARE IMMEDIATELY. COVID-19 Isolation: People with COVID-19 should isolate for 5 days. Then if they are asymptomatic (no symptoms) or their symptoms are resolving (without fever for 24 hours), follow that by 5 days of wearing a mask when around others to minimize the risk of infecting people you encounter. If you test positive for COVID-19 and never develop symptoms, day 0 is the day of your positive viral test (based on the date you were tested) and day 1 is the first full day after your positive test. If you develop symptoms after testing positive, your 5-day isolation period must start over. Day 0 is your first day of symptoms. Day 1 is the first full day after your symptoms developed. What to do: Stay in a separate room from other household members, if possible. Use a separate bathroom, if possible. Avoid contact with other members of the household and pets. Don?t share personal household items, like cups, towels, and utensils. Wear a mask when around other people if able. Referrals: Provider,Referral, [Primary Care Provider] - - Critical Care Critical Care Time: No Attestation: On , the high probability of a clinically significant, sudden or life threatening deterioration of the following system(s) required my full and direct attention, intervention and personal management. The time I documented below is in addition to time spent performing reported procedures but includes the following listed in this critical care notation. Medical Decision Making - Medical Records Medical records reviewed: Yes: I reviewed the patient's medical records. MR Comment: Reviewed prior heart cath results, see below. - Vamsi Inquiry Pt receiving controlled substance: No Vamsi was queried for this patient: Yes Vital Signs: 02/03/22 14:27 02/03/22 14:42 02/03/22 14:47 Temperature 98.6 F Temperature Source Oral Pulse Rate 72 72 Pulse Rate [Radial] 81 Respiratory Rate 22 18 16 Blood Pressure 131/86 141/90 H Blood Pressure [Right Arm] 147/88 H Blood Pressure Mean 98 98 Blood Pressure Mean [Right Arm] 107 Blood Pressure Position [Right Arm] Sitting 02 Sat by Pulse Oximetry 94 L 90 L 93 L Oxygen Delivery Method Room Air 02/03/22 14:52 02/03/22 15:18 02/03/22 15:23 Temperature Temperature Source Pulse Rate 69 68 67 Pulse Rate [Radial] Respiratory Rate 18 16 21 Blood Pressure 130/85 119/80 127/77 Blood Pressure [Right Arm] Blood Pressure Mean 96 96 88 Blood Pressure Mean [Right Arm] Blood Pressure Position [Right Arm] 02 Sat by Pulse Oximetry 94 L 93 L 88 L Oxygen Delivery Method 02/03/22 15:38 02/03/22 15:48 02/03/22 16:03 Temperature Temperature Source Pulse Rate 65 63 63 Pulse Rate [Radial] Respiratory Rate 16 17 Blood Pressure 122/80 152/88 H 142/88 H Blood Pressure [Right Arm] Blood Pressure Mean 88 99 98 Blood Pressure Mean [Right Arm] Blood Pressure Position [Right Arm] 02 Sat by Pulse Oximetry 93 L 95 92 L Oxygen Delivery Method 02/03/22 16:20 02/03/22 16:51 02/03/22 17:20 Temperature Temperature Source Pulse Rate 65 58 L 66 Pulse Rate [Radial] Respiratory Rate 18 16 16 Blood Pressure 139/92
--- NOTE | 2022-02-03 14:43 | PC.NURSE ---
PT STATES SOB WORSE WHEN LYING FLAT, LUNGS SOUND DECREASED THRU OUT
[2022-02-03 14:52] LABS: Influenza A, PCR Not Detected (NotDetected); Influenza B, PCR Not Detected (NotDetected)
[2022-02-03 15:11] LABS: Anion Gap 9.9 mEq/L (5-15); Blood Urea Nitrogen 10 mg/dl (7-17); Carbon Dioxide 29 mmol/L (22.0-30.0); Chloride 108 mmol/L (98-107); Creatinine Clearance Estimated 77 mL/min (50-200); Estimated Glomerular Filt Rate 101 ml/min (>60); GFR (African American) 122 ML/MIN (>60); Glucose 132 mg/dl (74-100); Potassium 3.9 mmoL/L (3.5-5.1); Sodium 143 mmol/L (136-145)
[2022-02-03 15:19] LABS: Basophils # 0.1 K/mm3 (0-0.2); Eosinophils # 0.3 K/mm3 (0.0-0.4); Eosinophils % 3.3 % (0.1-12.0); Hematocrit 42.8 % (37.0-47.0); Hemoglobin 13.1 g/dL (12.2-16.2); Lymphocytes # 2.7 K/mm3 (0.7-4.5); Lymphocytes % 26.2 % (10-50); Mean Corpuscular HGB Conc 30.7 g/dL (31.8-35.4); Mean Corpuscular Hemoglobin 26.5 pg (27.0-31.2); Mean Corpuscular Volume 86.3 fl (81-99); Mean Platelet Volume 9.7 fl (7.4-10.4); Monocytes # 0.9 K/mm3 (0.1-1.0); Neutrophils # 6.2 K/mm3 (1.8-7.8); Neutrophils % 60.5 % (37.0-80.0); Platelet Count 234 K/mm3 (142-424); Red Blood Count 4.96 M/mm3 (4.20-5.40); Red Cell Distribution Width 15.3 % (11.5-17.5); White Blood Count 10.3 K/mm3 (4.8-10.8)
[2022-02-03 15:21] LABS: NT Pro Brain Natriuretic Pep. 229 pg/mL (0-125)
[2022-02-03 15:23] LABS: Coronavirus 19, PCR Detected (NotDetected)
[2022-02-03 15:26] LABS: Troponin I < 0.01 ng/ml (0.00-0.034)
--- NOTE | 2022-02-03 15:26 | PC.NURSE ---
put pt on 2l o2 due to lower saturation
[2022-02-03 15:39] LABS: D-Dimer 0.96 ug/mL (0.0-0.5)
--- NOTE | 2022-02-03 15:47 | PC.NURSE ---
Assisted pt from restroom to bed. UA sent to lab. Pt hooked back up and vitals cycling. No needs voiced at this time.
[2022-02-03 16:07] LABS: Amphetamine/Metha Screen,Urine Negative ng/ml (<1000)
[2022-02-03 16:08] LABS: Barbiturates Screen,Urine Negative ng/ml (<200); Benzodiazepines Screen,Urine Negative ng/ml (<200)
[2022-02-03 16:09] LABS: Cannabinoid Screen,Urine Negative ng/ml (<50); Cocaine Screen,Urine Negative ng/ml (<300)
[2022-02-03 16:10] LABS: Methadone Screen,Urine Positive ng/ml (<300)
[2022-02-03 16:11] LABS: Opiate Screen,Urine Negative ng/ml (<300); Phencyclidine Screen,Urine Negative ng/ml (<25)
--- NOTE | 2022-02-03 16:28 | CT_ITS ---
PROCEDURE INFORMATION: Exam: CTA Chest With Contrast Exam date and time: 02/03/2022 4:54 PM Age: 66 years old Clinical indication: Patient HX: Elevated d-dimer, shortness of breath. ; Additional info: Cp, SOA, elev d-dimer TECHNIQUE: Imaging protocol: Computed tomographic angiography of the chest with contrast. 3D rendering (Not supervised by radiologist): MIP and/or 3D reconstructed images were created by the technologist. Radiation optimization: All CT scans at this facility use at least one of these dose optimization techniques: automated exposure control; mA and/or kV adjustment per patient size (includes targeted exams where dose is matched to clinical indication); or iterative reconstruction. Contrast material: ISOVUE; Contrast volume: 70 ml; Contrast route: INTRAVENOUS (IV); COMPARISON: CT ANGIO CHEST 06/18/2020 12:57 PM FINDINGS: Tubes, catheters and devices: Neurostimulator catheter in the spinal canal Pulmonary arteries: No evidence of pulmonary embolus to the segmental level. Aorta: No aneurysm of the aorta. No dissection of the aorta. Lungs: Unremarkable. No consolidation. No masses. Pleural spaces: Unremarkable. No pneumothorax. No pleural effusion. Heart: Coronary artery calcifications may indicate coronary artery disease. Lymph nodes: Unremarkable. No enlarged lymph nodes. Diaphragm: Moderate hiatal hernia Gallbladder and bile ducts: Cholecystectomy Bones/joints: Anterior cervical fusion. Dextroscoliosis of the thoracic spine. Vertebroplasty at L1 . Compression fracture of unknown age L2 Soft tissues: Unremarkable. IMPRESSION: 1. No evidence of pulmonary embolus to the segmental level. 2. No aneurysm of the aorta. 3. No dissection of the aorta.
--- NOTE | 2022-02-03 16:38 | PC.NURSE ---
RAD IN ROOM
--- NOTE | 2022-02-03 16:52 | PC.NURSE ---
PT going to CT for scan
--- NOTE | 2022-02-03 17:05 | PC.NURSE ---
Pt back from CT
[2022-02-03 17:49] LABS: Troponin I < 0.01 ng/ml (0.00-0.034)
--- NOTE | 2022-02-03 18:00 | PC.NURSE ---
PT UP TO BATHROOM AMBULATORY WITHOUT ASSIST.
--- NOTE | 2022-02-03 18:46 | PC.NURSE ---
PT CALLING FOR A RIDE HOME
== END 2022-02-03 19:27 | disposition home or self-care (01) ==
PROVIDERS: Emergency Provider Emergency Medicine
DX: R07.9 Chest pain, unspecified (principal); U07.1 COVID-19; Z79.899 Other long term (current) drug therapy; Z79.51 Long term (current) use of inhaled steroids; I10 Essential (primary) hypertension; K21.9 Gastro-esophageal reflux disease without esophagitis; F41.9 Anxiety disorder, unspecified; M19.90 Unspecified osteoarthritis, unspecified site; Z90.49 Acquired absence of other specified parts of digestive tract
CPT/HCPCS: 36415; 71045; 71275; 80048; 80305; 83880; 84484; 85025; 85378; 93005; 96374; 99284; C9803; J2405; Q9967; U0003; U0005

== ENCOUNTER → 2022-02-28 12:42 | Outpatient (CLI) | payer OTHER, SELFPAY ==
--- NOTE | 2022-02-28 12:47 | XR_ITS ---
FINAL REPORT CLINICAL HISTORY: Shortness of breath COMPARISON: 02/03/2022 FINDINGS: 2 views of the chest were obtained . The heart is normal in size. The mediastinum is within normal limits. There is mild left base atelectasis or scarring. There is no pneumothorax. Osseous structures demonstrate dextroscoliosis. There is postoperative change of kyphoplasty in the thoracic spine as well as thoracic kyphosis. IMPRESSION: Mild left base atelectasis or scarring. Reviewed, Interpreted and Dictated by Gabo Clark III, MD Transcribed by Lisa Ceballos Authenticated and [facility]
[2022-02-28 13:01] LABS: MANUAL DIFFERENTIAL MANUAL DIFFERENTIAL (MANUAL DIFF)
[2022-02-28 13:21] LABS: Basophils # 0.1 K/mm3 (0-0.2); Basophils % 1.6 % (0.1-2.0); Eosinophils # 0.4 K/mm3 (0.0-0.4); Eosinophils % 5.3 % (0.1-12.0); Hematocrit 44.2 % (37.0-47.0); Hemoglobin 13.8 g/dL (12.2-16.2); Lymphocytes # 3.1 K/mm3 (0.7-4.5); Lymphocytes % 37.3 % (10-50); Mean Corpuscular HGB Conc 31.3 g/dL (31.8-35.4); Mean Corpuscular Hemoglobin 27.3 pg (27.0-31.2); Mean Corpuscular Volume 87.1 fl (81-99); Mean Platelet Volume 8.7 fl (7.4-10.4); Monocytes # 0.6 K/mm3 (0.1-1.0); Monocytes % 7.6 % (1.7-9.3); Neutrophils % 48.3 % (37.0-80.0); Platelet Count 218 K/mm3 (142-424); Red Blood Count 5.08 M/mm3 (4.20-5.40); Red Cell Distribution Width 15.7 % (11.5-17.5); White Blood Count 8.2 K/mm3 (4.8-10.8)
[2022-02-28 13:44] LABS: Eosinophils % 5 % (0-3); Lymphocytes % 40 % (10-50); Monocytes % 9 % (2-9); Neutrophils % 45 % (42-76); Platelet Estimate Normal; RBC Morphology Normal; Total Cells Counted 100
[2022-02-28 14:42] LABS: Alanine Aminotransferase 19 U/L (12-78); Alkaline Phosphatase 104 U/L (38-126); Aspartate Amino Transferase 29 U/L (14-36); Blood Urea Nitrogen 11 mg/dl (7-17); Carbon Dioxide 32 mmol/L (22.0-30.0); Estimated Glomerular Filt Rate 84 ml/min (>60); GFR (African American) 102 ML/MIN (>60)
[2022-02-28 14:47] LABS: Bilirubin,Total < 0.1 mg/dl (0.2-1.3)
[2022-02-28 15:16] LABS: Albumin Level 3.9 g/dl (3.5-5.0); Albumin/Globulin Ratio 1.2 (1.1-1.8); Anion Gap 9.3 mEq/L (5-15); Calcium 8.9 mg/dl (8.4-10.2); Chloride 106 mmol/L (98-107); Globulin 3.2 g/dL (1.3-3.2); Glucose 68 mg/dl (74-100); Potassium 4.3 mmoL/L (3.5-5.1); Sodium 143 mmol/L (136-145); Total Protein,Serum 7.1 g/dl (6.3-8.2)
== END ==
PROVIDERS: PCP Physician Assistant; Visit Provider Nurse Practitioner Family
DX: R06.02 Shortness of breath (principal)
CPT/HCPCS: 36415; 71046; 80053; 85007; 85014; 85018; 85048; 85049

== ENCOUNTER → 2022-05-02 13:33 | Outpatient (CLI) | payer OTHER, SELFPAY ==
[2022-05-02 18:32] LABS: Adenovirus,PCR Not Detected (NotDetected); Bordetella Pertussis Not Detected (NotDetected); Chlamydophila Pneumoniae, PCR Not Detected (NotDetected); Coronavirus 19, PCR Not Detected (NotDetected); Coronavirus 229E Not Detected (NotDetected); Coronavirus NL63 Not Detected (NotDetected); Coronavirus OC43 Not Detected (NotDetected); Coronovirus HKU1,PCR Not Detected (NotDetected); Human Metapneumovirus Not Detected (NotDetected); Influenza A, PCR Not Detected (NotDetected); Influenza AH1, 2009 Not Detected (NotDetected); Influenza AH1, PCR Not Detected (NotDetected); Influenza AH3,PCR Not Detected (NotDetected); Influenza B, PCR Not Detected (NotDetected); Mycoplasma Pneumoniae, PCR Not Detected (NotDetected); Parainfluenza 1, PCR Not Detected (NotDetected); Parainfluenza 2, PCR Not Detected (NotDetected); Parainfluenza 3, PCR Not Detected (NotDetected); Parainfluenza 4, PCR Not Detected (NotDetected); Respiratory Syncytial Virus Not Detected (NotDetected); Rhinovirus/Enterovirus Not Detected (NotDetected)
== END ==
PROVIDERS: PCP Nurse Practitioner Family; Visit Provider Nurse Practitioner Family
DX: R69 Illness, unspecified (principal); J20.8 Acute bronchitis due to other specified organisms; B96.29 Other Escherichia coli [E. coli] as the cause of diseases classified elsewhere
CPT/HCPCS: 87581; 87632; 87798; C9803; U0003; U0005

== ENCOUNTER → 2022-06-12 17:08 | Outpatient (CLI) | payer MEDICARE, OTHER, SELFPAY ==
[2022-06-12 16:51] LABS: Adenovirus,PCR Not Detected (NotDetected); Bordetella Pertussis Not Detected (NotDetected); Chlamydophila Pneumoniae, PCR Not Detected (NotDetected); Coronavirus 19, PCR Not Detected (NotDetected); Coronavirus 229E Not Detected (NotDetected); Coronavirus NL63 Not Detected (NotDetected); Coronavirus OC43 Not Detected (NotDetected); Coronovirus HKU1,PCR Not Detected (NotDetected); Human Metapneumovirus Not Detected (NotDetected); Influenza A, PCR Not Detected (NotDetected); Influenza AH1, 2009 Not Detected (NotDetected); Influenza AH1, PCR Not Detected (NotDetected); Influenza AH3,PCR Not Detected (NotDetected); Influenza B, PCR Not Detected (NotDetected); Mycoplasma Pneumoniae, PCR Not Detected (NotDetected); Parainfluenza 1, PCR Not Detected (NotDetected); Parainfluenza 2, PCR Not Detected (NotDetected); Parainfluenza 3, PCR Not Detected (NotDetected); Parainfluenza 4, PCR Not Detected (NotDetected); Respiratory Syncytial Virus Not Detected (NotDetected); Rhinovirus/Enterovirus Not Detected (NotDetected)
== END ==
PROVIDERS: PCP Physician Assistant; Visit Provider Physician Assistant
DX: R06.09 Other forms of dyspnea (principal); Z23 Encounter for immunization; Z79.899 Other long term (current) drug therapy; J44.9 Chronic obstructive pulmonary disease, unspecified; R05.8 Other specified cough
CPT/HCPCS: 87581; 87632; 87798; C9803; U0003; U0005

== ENCOUNTER → 2022-10-22 08:00 | Outpatient (CLI) | payer MEDICARE, OTHER, SELFPAY ==
[2022-10-22 09:15] VITALS: PULSE 86; PULSE 90
--- NOTE | 2022-10-22 09:41 | CT_ITS ---
FINAL REPORT TECHNIQUE: 1.[address] axial slices were performed through the chest at 10 mm intervals utilizing high-resolution protocol. Coronal reformatted images were submitted. This study was performed with techniques to keep radiation doses as low as reasonably achievable (ALARA). Individualized dose reduction techniques using automated exposure control or adjustment of mA and/or kV according to the patient's size were employed. CLINICAL HISTORY: . SOA, COPD COMPARISON: CTA dated 02/03/2022 FINDINGS: There is streak artifact arising from fusion hardware in the lower cervical spine. There is no mediastinal mass or adenopathy. The heart size is normal. There is no pericardial or pleural effusion. There is scarring in the right mid lung, lingula, and bilateral apices. There is ground-glass opacity in both upper and lower lobes. This is better seen on the conventional images versus the high-resolution images. Findings may be related to pneumonitis. Limited images of the upper abdomen demonstrate a small to moderate hiatal hernia. The gallbladder is absent. There is significant thoracic scoliosis convex to the right of at least 30 degrees. IMPRESSION: 1. Scarring and apparent ground-glass opacity in both lungs, particularly the upper lobes, likely related to pneumonitis. 2. Hiatal hernia. 3. Thoracic scoliosis. Reviewed, Interpreted and Dictated by Chele Lloyd MD Transcribed by Marion Hunter Authenticated and [facility]
== END ==
PROVIDERS: PCP Physician Assistant; Visit Provider Internal Medicine Pulmonary Disease
DX: J84.9 Interstitial pulmonary disease, unspecified (principal)
CPT/HCPCS: 71250; 94060; 94640; 94727; 94729

== ENCOUNTER 2023-02-18 12:14 | Inpatient (IN) | payer MEDICARE, SELFPAY ==
[2023-02-18] VITALS (25 sets, daily range): BP systolic 91–157; BP diastolic 54–94; PULSE 74–130; RESP 20–97; TEMP 36.7–37.6; O2SAT 91–100; BMI 30.4; BMI 30.9
--- NOTE | 2023-02-18 11:50 | XR_ITS ---
PROCEDURE INFORMATION: Exam: XR Chest Exam date and time: 02/18/2023 1:32 PM Age: 3 years (approx. age) old Clinical indication: Cough; Patient HX: Patient intubated TECHNIQUE: Imaging protocol: Radiologic exam of the chest. Views: 1 view. COMPARISON: No relevant prior studies available. FINDINGS: Tubes, catheters and devices: There is an edotracheal tube with its tip in the proximal right main bronchus. Enteric tube terminates in the epigastric region. Lungs: Lungs are hypoareated. Streaky opacities in right lower lobe could be atelectasis versus developing pneumonia/aspiration Pleural spaces: Unremarkable. No pleural effusion. No pneumothorax. Heart/Mediastinum: Heart size is at the upper limits of normality Bones/joints: Surgical changes are present in the cervical spine. Status post kyphoplasty in a lumbar vertebral body IMPRESSION: 1. Edotracheal tube with its tip in the proximal right main bronchus 2. Streaky opacities in right lower lobe could be atelectasis versus developing pneumonia/aspiration
--- NOTE | 2023-02-18 11:50 | CT_ITS ---
PROCEDURE INFORMATION: Exam: CT Head Without Contrast Exam date and time: 02/18/2023 1:37 PM Age: 67 years old Clinical indication: Altered mental status/memory loss; Confusion or disorientation; Additional info: AMS TECHNIQUE: Imaging protocol: Computed tomography of the head without contrast. Radiation optimization: All CT scans at this facility use at least one of these dose optimization techniques: automated exposure control; mA and/or kV adjustment per patient size (includes targeted exams where dose is matched to clinical indication); or iterative reconstruction. REPORTING DATA: Count of CT and Cardiac NM exams in prior 12 months: This patient has received [address] and 0 known cardiac nuclear medicine studies in the 12 months prior to the current study. COMPARISON: CT HEAD/BRAIN WO CON 05/25/2020 6:24 AM FINDINGS: Brain: No intracranial hemorrhage. No evidence of acute territorial infarct or cerebral edema. Mild prominence of the cortical sulci consistent with age-appropriate intracerebral volume loss. Periventricular white matter tract changes consistent with microvascular disease. No mass effect or midline shift. Artifact superimposed upon the liliana. Subtle abnormalities could not be excluded. Consider follow-up if appropriate with magnetic resonance imaging. Cerebral ventricles: No ventriculomegaly. Paranasal sinuses: Right maxillary sinus polyp versus retention cyst. No fluid levels. Mastoid air cells: Visualized mastoid air cells are well aerated. Bones/joints: Hyperostosis frontalis interna Soft tissues: Unremarkable. IMPRESSION: 1. No evidence of acute osseous injury. 2. Artifact superimposed upon the liliana. If appropriate, follow-up with magnetic resonance imaging to exclude subtle abnormalities.
--- NOTE | 2023-02-18 12:44 | ECG_ITS ---
APPROVED REPORT Exam: Resting ECG HR:115 bpm ECG Measurements Heart Rate 115 AXES HI 155 P 61 QRSd 90 QRS -7 QT 353 T 63 QTc 421 Conclusion SINUS TACHYCARDIA INFERIOR MYOCARDIAL INFARCTION , PROBABLY OLD [40+ ms Q WAVE AND/OR ST/T ABNORMALITY IN II/aVF] ABNORMAL ECG INTERPRETATION BASED ON A DEFAULT AGE OF 42 YEARS UNCONFIRMED REPORT Electronically signed by : Jevon Donahue MD 02/20/2023 18:47:01
--- NOTE | 2023-02-18 13:30 | PC.NURSE ---
RT at bs
--- NOTE | 2023-02-18 13:34 | PC.NURSE ---
Going to CT with RT and management supervisor
--- NOTE | 2023-02-18 13:40 | PC.NURSE ---
new orders to lab
--- NOTE | 2023-02-18 13:45 | PC.NURSE ---
back from CT
--- NOTE | 2023-02-18 14:25 | PC.NURSE ---
daughter at bedside
--- NOTE | 2023-02-18 15:25 | PC.NURSE ---
Dr Lu speaking with Dr Mendez about admission
--- NOTE | 2023-02-18 15:55 | PC.NURSE ---
another propofol hanging, Dr Perez @ bedside
--- NOTE | 2023-02-18 16:14 | PC.NURSE ---
1214 PT ARRIVED VIA EMS, LETHARGIC, NRB IN PLACE. PT WITH MINIMAL RESPONSE TO PAINFUL STIMULI 1215 DR HUDDLESTON AT BEDSIDE 1218 VERBAL ORDER FOR NARCAN 2MG IV, GIVEN 1225 ADDITIONAL 20GA IV R AC 1230 HR 115 96% 42 146/84, DR HUDDLESTON TO INTUBATE PT 1232 26 MG ETOMIDATE, 100MG ROCURONIUM GIVEN PER MD 1234 7.5 ETT 22 AT THE GUM LINE, + COLOR CHANGE, PLACEMENT VERIFIED PER AUSCULTATION PER RESPIRATORY. VENT SETTINGS PER RESPIRATORY 1237 HR 117 134/84 98% 18 1240 F/C PLACED PER STERILE TECHNIQUE, UA COLLECTED AND SENT TO LAB 1243 PROPOFOL STARTED BY MICKY ZARATE PER VERBAL MD ORDER, dose titrated as needed.. STARTED AT 5MCG 1248 PROPOFOL AT 10MCG 1253 NG TUBE PLACED AT THIS TIME, 60 AT LEFT NARE. PLACEMENT VERIFIED PER AUSCULTATION, PROPOFOL AT 15MCG 1258 PROPFOL AT 20MCG 1306 LAB AT BEDSIDE 1310 PROPOFOL AT 25MCG 1330 MD SPEAKING WITH POISON CONTROL [address] ORDER [address] WITH RESPIRATORY AND MELVIN RN [address] 1410 PROPOFOL TITRATED TO 30MCG/KG/MIN 1500 FAMILY AT BEDSIDE, UPDATED 1515 DR HUDDLESTON SPEAKING WITH HOSPITALIST 1535 DR HUDDLESTON AT BEDSIDE TO UPDATE FAMILY 1546 DR WERNER AT BEDSIDE FOR ADMISSION ASSESSMENT
--- NOTE | 2023-02-18 16:33 | PC.NURSE ---
Addendum entered by Summer Ludwig, EMT 02/18/23 16:34: at 1450 Original Note: MD with daughter
[2023-02-18 16:35] LABS: Microscopic,Cath URINE MICROSCOPIC (MICROSCOPIC)
[2023-02-18 16:38] LABS: Amphetamine/Metha Screen,Urine Negative ng/ml (<1000); Barbiturates Screen,Urine Negative ng/ml (<200); Benzodiazepines Screen,Urine Negative ng/ml (<200); Cannabinoid Screen,Urine Negative ng/ml (<50); Cocaine Screen,Urine Negative ng/ml (<300); Methadone Screen,Urine Positive ng/ml (<300); Opiate Screen,Urine Negative ng/ml (<300); Phencyclidine Screen,Urine Negative ng/ml (<25)
[2023-02-18 16:39] LABS: Magnesium 1.8 mg/dl (1.6-2.3); Phosphorous 4.4 mg/dl (2.5-4.5); Thyroid Stimulating Hormone 0.74 uIU/mL (0.465-4.68)
[2023-02-18 16:40] LABS: Acetaminophen < 10 ug/ml (10-30); Creatine Kinase MB < 0.2 ng/ml (0.0-2.03); Salicylate < 1.0 mg/dL (2.0-20.0); Troponin I < 0.01 ng/ml (0.00-0.034)
[2023-02-18 16:45] LABS: Appearance,Urine/Cath CLEAR (Clear); Bilirubin,Cath 2+ (Negative); Blood, Urine/Cath Negative (Negative); Color,Urine/Cath YELLOW (Yellow); Glucose,Urine/Cath (UA) Negative (Negative); Ketones,Urine/Cath Negative (Negative); Leukocyte Esterase,Cath Negative (Negative); Nitrate,Cath Negative (Negative); Protein,Urine/Cath Negative (Negative); Specific Gravity, Urine/Cath >= 1.030 (1.005-1.030); Urobilinogen,Cath 0.2 EU/dl (0.2)
[2023-02-18 16:46] LABS: Bacteria,Urine/Cath TRACE /lpf; Squamous Epithelial Ur./Cath Occasional #/hpf (0-5)
[2023-02-18 16:47] LABS: Basophils % 0.3 % (0.1-2.0); Eosinophils % 0.4 % (0.1-12.0); Hematocrit 42.8 % (37.0-47.0); Lymphocytes # 1.2 K/mm3 (0.7-4.5); Lymphocytes % 8.2 % (10-50); Mean Corpuscular HGB Conc 30.4 g/dL (31.8-35.4); Mean Corpuscular Hemoglobin 26.1 pg (27.0-31.2); Mean Corpuscular Volume 85.7 fl (81-99); Mean Platelet Volume 8.2 fl (7.4-10.4); Monocytes % 4.2 % (1.7-9.3); Neutrophils # 12.6 K/mm3 (1.8-7.8); Neutrophils % 86.5 % (37.0-80.0); Platelet Count 166 K/mm3 (142-424); Red Cell Distribution Width 14.8 % (11.5-17.5); White Blood Count 14.5 K/mm3 (4.8-10.8)
[2023-02-18 16:48] LABS: Activated Partial Thrombo Time 25.6 seconds (22.8-30.6); Eosinophils # 0.1 K/mm3 (0.0-0.4); INR 1.11 (0.9-1.1); Monocytes # 0.6 K/mm3 (0.1-1.0); Prothrombin Time 11.9 seconds (10.1-12.5)
[2023-02-18 16:49] LABS: MANUAL DIFFERENTIAL MANUAL DIFFERENTIAL (MANUAL DIFF)
[2023-02-18 16:58] LABS: NT Pro Brain Natriuretic Pep. 394 pg/mL (0-125)
--- NOTE | 2023-02-18 17:20 | PC.NURSE ---
REPORT GIVEN TO Juan ROJO RN
--- NOTE | 2023-02-18 18:04 | EXP.HP ---
History of Present Illness *Admission Date: 02/18/23 *Reason for visit:: Drug overdose *History of present illness: Ms. Maggie Azevedo is a 67 year old female with a past medical history of chronic back pain, obesity, hypertension, hyperlipidemia and anxiety. The patient is currently intubated and sedated on propofol; history was obtained from chart review and the patient's three daughters. The patient lives with her friend who last saw her to be her normal self earlier in the morning; within a couple of hours her friend found her unresponsive near multiple scattered pills and open pill bottles, including methadone, Klonopin, methocarbamol, buspar, metoprolol and furosemide. Initial vitals from the ED included BP 157/89 and Spo2 92% on room air. The patient was given narcan 1mg IV followed by 2mg with no appreciable effect; she developed tachypnea and was intubated in the ER to protect her airway. Per daughters, the patient has no history of suicidality but has been hospitalized a couple times in the past for accidental overdose. She often takes more medications than prescribed for her chronic pain. No recent change in medications except she was recently started on Buspar. Workup so far includes CBC with 14.5K wbcs, troponin <0.01, tsh 0.74, ua with no wbcs, uds +methadone, salicylates <1, acetaminophen <10, cxr with persistent bilateral pleural effusions with ettube 3.8cm above the karlo, and a head ct with an artifact superimposed upon the liliana. [facility] Disclaimer: The information contained in this section may have been updated after the patient was seen, as this information can be updated by other users. Medical History (Updated 02/19/23 @ 04:14 by Costa Cox MD) Abnormal PFT Antineutrophil cytoplasmic antibody (ANCA) positive Anxiety and depression Asthma CAD (coronary artery disease) Chronic low back pain COPD (chronic obstructive pulmonary disease) Diastolic dysfunction Dyspnea on exertion Elevated left ventricular end-diastolic pressure (LVEDP) Gabapentin overdose HTN (hypertension) Interstitial pneumonia Methadone overdose Moderate persistent asthma Panic attacks Pneumonia, community acquired PTSD (post-traumatic stress disorder) 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 Restrictive lung disease Restrictive lung disease Scoliosis Tachycardia Xanax overdose Surgical History History of tonsillectomy Family History Other Asthma Diabetes Heart attack Hypertension Social History (Updated 02/18/23 @ 18:20 by Jovana Stern, MICKY) Smoking Status: Never smoker alcohol intake: never substance use type: denies use current occupational status: disabled Travel in the last 8 weeks: None household members: significant other housing: house number of children: 3 current occupational exposures/hazards: No caffeine: Yes Review of Systems Review of Systems Review of systems:: unable to obtain (The patient is sedated and intubated.) Meds Home Medications and Allergies Home Medications Medication Instructions Recorded Confirmed Type methocarbamol 750 mg tablet 750 mg PO BID MUSCLE SPASM #180 07/12/20 02/18/23 Rx tabs methadone 10 mg tablet 10 mg PO TID Pain 10/09/20 02/18/23 History oxycodone 10 mg tablet 10 mg PO BID 03/27/22 10/22/22 History rosuvastatin 20 mg tablet (Crestor) 20 mg PO DAILY #90 tabs 05/08/22 10/22/22 Rx ipratropium 0.5 mg-albuterol 3 mg 3 ml inhalation Q6H PRN shortness 08/20/22 10/22/22 Rx (2.5 mg base)/3 mL nebulization of breath or wheezing #90 mL soln carbamide peroxide 6.5 % ear drops 5 drp otic (ear) Q12H 5 days #15 mL 11/07/22 11/07/22 Rx (Debrox) promethazine 25 mg tablet 25 mg PO TID PRN nausea and 02/14/23 02/18/23 Rx vomiting #20 tabs amlodipine 5 mg tablet 5 mg PO DAILY BP 02/18/23 02/18/23 History aspirin 81 mg tablet,d
--- NOTE | 2023-02-18 18:23 | XR_ITS ---
PROCEDURE INFORMATION: Exam: XR Chest Exam date and time: 02/18/2023 7:05 PM Age: 67 years old Clinical indication: Device placement; Ett placement (vent status); Additional info: Ettube retracted 4cm TECHNIQUE: Imaging protocol: Radiologic exam of the chest. Views: 1 view. COMPARISON: CR XR CHEST PORTABLE 02/18/2023 1:32 PM FINDINGS: Tubes, catheters and devices: Endotracheal tube tip 3.8 cm above the karlo. Lungs: Persistent bilateral pleural effusions with right middle and lower lobe infiltrate. Unchanged. Pleural spaces: See Lungs finding. Heart/Mediastinum: Unremarkable. No cardiomegaly. Bones/joints: Unremarkable. IMPRESSION: Endotracheal tube tip 3.8 cm above the karlo.
[2023-02-18 18:35] LABS: Carbon Dioxide 28 mmol/L (22.0-30.0); Chloride 100 mmol/L (98-107); Sodium 140 mmol/L (136-145)
[2023-02-18 18:36] LABS: Alanine Aminotransferase 18 U/L (12-78); Albumin Level 3.5 g/dl (3.5-5.0); Albumin/Globulin Ratio 0.9 (1.1-1.8); Alkaline Phosphatase 109 U/L (38-126); Aspartate Amino Transferase 34 U/L (14-36); Bilirubin,Total 0.8 mg/dl (0.2-1.3); Blood Urea Nitrogen 9 mg/dl (7-17); Calcium 9.1 mg/dl (8.4-10.2); Creatinine Clearance Estimated 82 mL/min (50-200); Estimated Glomerular Filt Rate 84 ml/min (>60); GFR (African American) 102 ML/MIN (>60); Glucose 184 mg/dl (74-100); Total Protein,Serum 7.5 g/dl (6.3-8.2)
[2023-02-18 19:04] LABS: POC Glucose,Bedside 201 (70-110)
[2023-02-18 19:08] LABS: Eosinophils % 1 % (0-3); Lymphocytes % 7 % (10-50); Monocytes % 9 % (2-9); Neutrophils % 83 % (42-76); Platelet Estimate Normal; RBC Morphology Normal; Total Cells Counted 100
--- NOTE | 2023-02-18 19:10 | HMH.EDGENADL ---
Discharge Plan Disposition Patient Disposition: Admitted Discharge ED Provider: Jalil Mendez General Adult HPI General Chief complaint: Overdose Stated complaint: OD Time Seen by Provider: 02/18/23 12:15 Mode of Arrival: EMS Source of Information: EMS Limitations: No Limitations Description of Symptoms (Recalled from ER Triage Doc. by RN): PT FOUND UNRESPONSIVE BY S.O WITH PILLS ALL AROUND HER 1 MG GIVEN IV PER EMS, PT ON NRB. PT ABLE TO SIT UPRIGHT, LABORED RESPIRATIONS, MINIMAL RESPONSE TO PAINFUL STIMULI. History of Present Illness HPI narrative: Patient presents for evaluation of altered mental status in the setting of suspected overdose, history obtained by EMS, however history limited secondary to acuity of patient's condition and altered mental status. Patient was reportedly found in home with last known normal unknown. Patient was reportedly found surrounded by multiple pills including potassium supplement, Lasix, buspirone, benzo, beta-gabby, statin. Unknown amount of ingestion of these substances. History was additionally limited as electronic medical record was down during her initial ED course and thus, with no family members at bedside, in conjunction with altered mental status, I am unable to verify patient's age, date of , medical history, or other comorbidities. Previous therapies performed by EMS include 1 mg IV Narcan with no improvement of symptoms. [id number] glucose by EMS was within normal limits. Related Data Home Medications Medication Instructions Recorded Confirmed methadone 10 mg tablet 10 mg PO TID Pain 10/09/20 02/18/23 oxycodone 10 mg tablet 10 mg PO BID 03/27/22 10/22/22 amlodipine 5 mg tablet 5 mg PO DAILY BP 02/18/23 02/18/23 aspirin 81 mg tablet,delayed 81 mg PO DAILY Blood Thinner 02/18/23 02/18/23 release buspirone 5 mg tablet 5 mg PO BID Anxiety 02/18/23 02/18/23 clonazepam 1 mg tablet (Klonopin) 1 mg PO TID Anxiety 02/18/23 02/18/23 furosemide 20 mg tablet 20 mg PO DAILY Fluid 02/18/23 02/18/23 lisinopril 40 mg tablet 20 mg PO BID BP 02/18/23 02/18/23 metoprolol succinate 50 mg 50 mg PO BID BP 02/18/23 02/18/23 tablet,extended release 24 hr naloxegol 25 mg tablet (Movantik) 25 mg PO DAILY . 02/18/23 02/18/23 omeprazole 40 mg capsule,delayed 40 mg PO DAILY GERD 02/18/23 02/18/23 release potassium chloride 10 mEq 10 meq PO DAILY Supplement 02/18/23 02/18/23 capsule,extended release Previous Rx's Medication Instructions Recorded methocarbamol 750 mg tablet 750 mg PO BID MUSCLE SPASM #180 07/12/20 tabs rosuvastatin 20 mg tablet (Crestor) 20 mg PO DAILY #90 tabs 05/08/22 ipratropium 0.5 mg-albuterol 3 mg 3 ml inhalation Q6H PRN shortness 08/20/22 (2.5 mg base)/3 mL nebulization of breath or wheezing #90 mL soln carbamide peroxide 6.5 % ear drops 5 drp otic (ear) Q12H 5 days #15 mL 11/07/22 (Debrox) promethazine 25 mg tablet 25 mg PO TID PRN nausea and 02/14/23 vomiting #20 tabs Allergies Allergy/AdvReac Type Severity Reaction Status Date / Time No Known Allergies Allergy Verified 11/07/22 14:27 [facility] Disclaimer: The information contained in this section may have been updated after the patient was seen, as this information can be updated by other users. Medical History Abnormal PFT Antineutrophil cytoplasmic antibody (ANCA) positive Anxiety and depression Asthma CAD (coronary artery disease) Chronic low back pain COPD (chronic obstructive pulmonary disease) Diastolic dysfunction Dyspnea on exertion Elevated left ventricular end-diastolic pressure (LVEDP) Gabapentin overdose HTN (hypertension) Interstitial pneumonia Methadone overdose Moderate persistent asthma Panic attacks Pneumonia, community acquired PTSD (post-traumatic stress disorder) 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 Restrictive lung disease Restrictive lung disease Scoliosis Tachycardi
--- NOTE | 2023-02-18 22:34 | PC.NURSE ---
Update given to Poison Control.
--- NOTE | 2023-02-18 22:54 | PC.NURSE ---
Gag reflex is not present during oral care. Diprovan decreased to 25mcg/kg/min. Alli, LEAD SHAREPOINT DEVELOPER notified. No additional orders given.
[2023-02-19] VITALS (36 sets, daily range): BP systolic 81–145; BP diastolic 43–69; PULSE 85–111; RESP 18–23; TEMP 36.4–37.8; O2SAT 91–100
--- NOTE | 2023-02-19 00:30 | PC.NURSE ---
Propofol decreased to 20mcg/kg/min. During oral care, gag reflex not intact, patient does swallow during care.
--- NOTE | 2023-02-19 02:30 | PC.NURSE ---
Patient opening eyes, swallowing, raising up in bed, grimacing, biting et tube. Sedation, propofol increased to 25mcg/kg/min.
--- NOTE | 2023-02-19 06:00 | XR_ITS ---
PROCEDURE INFORMATION: Exam: XR Chest Exam date and time: 02/19/2023 6:22 AM Age: 67 years old Clinical indication: Other: Intubated TECHNIQUE: Imaging protocol: Radiologic exam of the chest. Views: 1 view. COMPARISON: CR XR CHEST PORTABLE 02/18/2023 7:05 PM FINDINGS: Tubes, catheters and devices: Endotracheal tube 4 cm above the karlo is stable in position. Overlying monitoring leads. Lungs: Bilateral lower lung and right perihilar field opacities. Pleural spaces: Left greater than right pleural thickening concerning for effusion. Heart/Mediastinum: Obscured cardiac silhouette. Bones/joints: In low anterior cervical spinal fusion hardware. S shaped scoliosis. Upper lumbar vertebroplasty cement. Organs: Cholecystectomy clips. IMPRESSION: 1. Bilateral lower lung field opacities. Atelectasis versus pneumonia. 2. Suspected left greater than right pleural effusions.
[2023-02-19 06:27] LABS: POC Glucose,Bedside 159 (70-110)
[2023-02-19 06:38] LABS: ABG Base Excess 2.3 mmol/L (-2.4-2.3); ABG HCO3 25.1 mmhg (22.0-26.0); ABG Oxygen Saturation 91 % (90-100); ABG PCO2 31.2 mmhg (35.0-45.0); ABG PH 7.52 mmol/L (7.35-7.45); ABG PO2 50.9 mmhg (80-100)
[2023-02-19 06:40] LABS: Allen's Test acceptable; Oxygen 60 %; PEEP 5; Tidal Volume 420; Vent Rate 22
--- NOTE | 2023-02-19 06:50 | PC.NURSE ---
Propofol infusing at 25mcg/kg/min NS @75ml/hr Patient on right side, HOB elevated, f/c to bedside drainage, ST at 108. Oral care completed, patient does swallow and grimace during care.
[2023-02-19 07:03] LABS: Basophils % 0.2 % (0.1-2.0); Eosinophils % 0.2 % (0.1-12.0); Hematocrit 39.6 % (37.0-47.0); Hemoglobin 12.3 g/dL (12.2-16.2); Lymphocytes # 1.6 K/mm3 (0.7-4.5); Lymphocytes % 9.7 % (10-50); Mean Corpuscular HGB Conc 31.1 g/dL (31.8-35.4); Mean Corpuscular Hemoglobin 25.5 pg (27.0-31.2); Mean Corpuscular Volume 82.1 fl (81-99); Mean Platelet Volume 9.5 fl (7.4-10.4); Monocytes # 1.2 K/mm3 (0.1-1.0); Monocytes % 7.7 % (1.7-9.3); Neutrophils % 82.1 % (37.0-80.0); Platelet Count 168 K/mm3 (142-424); Red Blood Count 4.83 M/mm3 (4.20-5.40); Red Cell Distribution Width 15.4 % (11.5-17.5); White Blood Count 15.9 K/mm3 (4.8-10.8)
[2023-02-19 07:08] LABS: MANUAL DIFFERENTIAL MANUAL DIFFERENTIAL (MANUAL DIFF)
[2023-02-19 07:12] LABS: Alanine Aminotransferase 28 U/L (12-78); Albumin/Globulin Ratio 0.9 (1.1-1.8); Alkaline Phosphatase 66 U/L (38-126); Anion Gap 14.1 mEq/L (5-15); Aspartate Amino Transferase 59 U/L (14-36); Bilirubin,Total 0.9 mg/dl (0.2-1.3); Blood Urea Nitrogen 11 mg/dl (7-17); Calcium 8.1 mg/dl (8.4-10.2); Carbon Dioxide 26 mmol/L (22.0-30.0); Chloride 101 mmol/L (98-107); Creatinine Clearance Estimated 82 mL/min (50-200); Estimated Glomerular Filt Rate 84 ml/min (>60); GFR (African American) 102 ML/MIN (>60); Globulin 3.4 g/dL (1.3-3.2); Glucose 147 mg/dl (74-100); Potassium 4.1 mmoL/L (3.5-5.1); Sodium 137 mmol/L (136-145); Total Protein,Serum 6.4 g/dl (6.3-8.2)
--- NOTE | 2023-02-19 07:31 | HMH.PHAINT1 ---
Pharmacy Intervention Comments: MEDICATION RECONCILIATION COMPLETED ON PATIENT USING EXTERNAL FILL HISTORY FROM PHARMACY AND SARINA REPORT. -PIERRE DEL ROSARIO, BERNARDOD
[2023-02-19 07:38] LABS: Hypochromasia 1+; Lymphocytes % 14 % (10-50); Monocytes % 5 % (2-9); Neutrophils % 81 % (42-76); Total Cells Counted 100
[2023-02-19 07:39] LABS: Platelet Estimate Normal
[2023-02-19 08:30] LABS: ABG HCO3 28.3 mmhg (22.0-26.0); ABG PCO2 48.9 mmhg (35.0-45.0); ABG PH 7.38 mmol/L (7.35-7.45); ABG PO2 180.7 mmhg (80-100)
[2023-02-19 08:31] LABS: ABG Base Excess 3.2 mmol/L (-2.4-2.3); ABG Oxygen Saturation 100 % (90-100); ABG TCO2 29.8 mmhg (23-27); Allen's Test ACCEPTABLE; Oxygen 100 %; PEEP 5; Source Right Radial; Tidal Volume 420; Vent Rate 20
--- NOTE | 2023-02-19 08:41 | EXP.PN ---
Subjective *Date: 02/19/23 *Time: 14:26 Interval history: No acute events overnight. She is intubated and sedated. Exam Data for Last 24 hours Vital signs and Labs for Last 24 Hours: Temp Pulse Resp BP Pulse Ox O2 Del Method FiO2 98.8 F 107 H 22 93/56 L 93 L Mechanical Ventilation 60 02/19/23 08:00 02/19/23 06:47 02/19/23 06:47 02/19/23 06:47 02/19/23 06:47 02/19/23 06:47 02/19/23 06:47 Laboratory Results - last 24 hr 02/18/23 13:35: Specimen Source Right radial, O2 % 100, ABG pH 7.38, ABG pCO2 48.9 H, ABG pO2 180.7 H, ABG HCO3 28.3 H, ABG Total CO2 29.8 H, ABG O2 Saturation 100, ABG Base Excess 3.2 H, Sonu Test Acceptable, Vent Rate 20, Tidal Volume 420, PEEP 5 02/18/23 18:57: POC Glucose 201 H 02/18/23 : WBC 14.5 H, RBC 5.00, Hgb 13.0, Hct 42.8, MCV 85.7, MCH 26.1 L, MCHC 30.4 L, RDW 14.8, Plt Count 166, MPV 8.2, Neut % (Auto) 86.5 H, Lymph % (Auto) 8.2 L, [place] % (Auto) 4.2, Eos % (Auto) 0.4, Baso % (Auto) 0.3, Neut # (Auto) 12.6 H, Lymph # (Auto) 1.2, [place] # (Auto) 0.6, Eos # (Auto) 0.1, Baso # (Auto) 0.0, Total Counted 100, Neutrophils % (Manual) 83 H, Lymphocytes % (Manual) 7 L, Monocytes % (Manual) 9, Eosinophils % (Manual) 1, Platelet Estimate Normal, RBC Morphology Normal, PT 11.9, INR 1.11 H, APTT 25.6, Sodium 140, Potassium 4.0, Chloride 100, Carbon Dioxide 28, Anion Gap 16.0 H, BUN 9, Creatinine 0.70, Estimated Creat Clear 82, Estimated GFR 84, Est GFR ( Amer) 102, Glucose 184 H, Calcium 9.1, Phosphorus 4.4, Magnesium 1.8, Total Bilirubin 0.8, AST 34, ALT 18, Alkaline Phosphatase 109, CK-MB (CK-2) < 0.2, Troponin I < 0.01, NT-Pro-B Natriuret Pep 394 H, Total Protein 7.5, Albumin 3.5, Globulin 4.0 H, Albumin/Globulin Ratio 0.9 L, TSH 0.74, Urine Color Yellow, Urine Appearance Clear, Urine pH 6.0, Ur Specific [place] >= 1.030, Urine Protein Negative, Urine Glucose (UA) Negative, Urine Ketones Negative, Urine Blood Negative, Urine Nitrate Negative, Urine Bilirubin 2+ A, Urine Urobilinogen 0.2, Ur Leukocyte Esterase Negative, Urine RBC None, Urine WBC None, Ur Squamous Epith Cells Occasional, Urine Bacteria Trace, Salicylates < 1.0 L, Urine Opiates Screen Negative, Urine Methadone Screen Positive H, Acetaminophen < 10 L, Ur Barbituates Screen Negative, Ur Phencyclidine Scrn Negative, Ur Amphetamines Screen Negative, U Benzodiazepines Scrn Negative, Urine Cocaine Screen Negative, U Marijuana (THC) Screen Negative 02/19/23 05:28: WBC 15.9 H, RBC 4.83, Hgb 12.3, Hct 39.6, MCV 82.1, MCH 25.5 L, MCHC 31.1 L, RDW 15.4, Plt Count 168, MPV 9.5, Neut % (Auto) 82.1 H, Lymph % (Auto) 9.7 L, [place] % (Auto) 7.7, Eos % (Auto) 0.2, Baso % (Auto) 0.2, Neut # (Auto) 13.0 H, Lymph # (Auto) 1.6, [place] # (Auto) 1.2 H, Eos # (Auto) 0.0, Baso # (Auto) 0.0, Total Counted 100, Neutrophils % (Manual) 81 H, Lymphocytes % (Manual) 14, Monocytes % (Manual) 5, Platelet Estimate Normal, Hypochromasia 1+, Sodium 137, Potassium 4.1, Chloride 101, Carbon Dioxide 26, Anion Gap 14.1, BUN 11, Creatinine 0.70, Estimated Creat Clear 82, Estimated GFR 84, Est GFR ( Amer) 102, Glucose 147 H D, Calcium 8.1 L, Total Bilirubin 0.9, AST 59 H D, ALT 28 D, Alkaline Phosphatase 66, Total Protein 6.4, Albumin 3.0 L D, Globulin 3.4 H, Albumin/Globulin Ratio 0.9 L 02/19/23 06:00: Specimen Source l radial, O2 % 60, ABG pH 7.52 H, ABG pCO2 31.2 L, ABG pO2 50.9 L, ABG HCO3 25.1, ABG Total CO2 26.0, ABG O2 Saturation 91, ABG Base Excess 2.3, Sonu Test acceptable, Vent Rate 22, Tidal Volume 420, PEEP 5 02/19/23 06:07: POC Glucose 159 H I & O for Last 24 hours: Intake & Output 02/16/23 02/17/23 02/18/23 02/19/23 23:59 23:59 23:59 23:59 Intake Total 629.0 / 752.6 871.1 / 871.1 Output Total 695 / 695 150 / 150 Balance -66.0 / 57.6 721.1 / 721.1 Weight 92.278 kg Constitutional Constitutional: no acute distress *Routine HEENT Exam Head: Present normocephalic Eye: Present EOMI and PERRL ENT: Present mucous membranes moist *Routine Neck Exam Neck: Prese
--- NOTE | 2023-02-19 09:18 | EXP.PULM.CON ---
History of Present Illness History of present illness: Ms. Azevedo is a 67-year-old female [facility] Disclaimer: The information contained in this section may have been updated after the patient was seen, as this information can be updated by other users. Medical History (Updated 02/19/23 @ 09:21 by Salvatore Yang MD) Abnormal PFT Acute respiratory failure with hypoxia Antineutrophil cytoplasmic antibody (ANCA) positive Anxiety and depression Asthma CAD (coronary artery disease) Chronic low back pain COPD (chronic obstructive pulmonary disease) Diastolic dysfunction Dyspnea on exertion Elevated left ventricular end-diastolic pressure (LVEDP) Gabapentin overdose HTN (hypertension) Interstitial pneumonia Methadone overdose Moderate persistent asthma On mechanically assisted ventilation Panic attacks Pneumonia, community acquired PTSD (post-traumatic stress disorder) 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 Restrictive lung disease Restrictive lung disease Scoliosis Tachycardia Xanax overdose Surgical History History of tonsillectomy Family History Other Asthma Diabetes Heart attack Hypertension Social History (Updated 02/18/23 @ 18:20 by Jovana Stern, RN) Smoking Status: Never smoker alcohol intake: never substance use type: denies use current occupational status: disabled Travel in the last 8 weeks: None household members: significant other housing: house number of children: 3 current occupational exposures/hazards: No caffeine: Yes Review of Systems Review of Systems Review of systems:: unable to obtain Review of systems (narrative): Intubated and sedated Pulmonology Exam Inpatient Vital signs and Labs for Last 24 Hours: Temp Pulse Resp BP Pulse Ox O2 Del Method FiO2 98.8 F 103 H 18 97/50 L 100 Mechanical Ventilation 60 02/19/23 08:00 02/19/23 08:38 02/19/23 08:38 02/19/23 08:38 02/19/23 08:38 02/19/23 08:38 02/19/23 08:38 Laboratory Results - last 24 hr 02/18/23 13:35: Specimen Source Right radial, O2 % 100, ABG pH 7.38, ABG pCO2 48.9 H, ABG pO2 180.7 H, ABG HCO3 28.3 H, ABG Total CO2 29.8 H, ABG O2 Saturation 100, ABG Base Excess 3.2 H, Sonu Test Acceptable, Vent Rate 20, Tidal Volume 420, PEEP 5 02/18/23 18:57: POC Glucose 201 H 02/18/23 : WBC 14.5 H, RBC 5.00, Hgb 13.0, Hct 42.8, MCV 85.7, MCH 26.1 L, MCHC 30.4 L, RDW 14.8, Plt Count 166, MPV 8.2, Neut % (Auto) 86.5 H, Lymph % (Auto) 8.2 L, [place] % (Auto) 4.2, Eos % (Auto) 0.4, Baso % (Auto) 0.3, Neut # (Auto) 12.6 H, Lymph # (Auto) 1.2, [place] # (Auto) 0.6, Eos # (Auto) 0.1, Baso # (Auto) 0.0, Total Counted 100, Neutrophils % (Manual) 83 H, Lymphocytes % (Manual) 7 L, Monocytes % (Manual) 9, Eosinophils % (Manual) 1, Platelet Estimate Normal, RBC Morphology Normal, PT 11.9, INR 1.11 H, APTT 25.6, Sodium 140, Potassium 4.0, Chloride 100, Carbon Dioxide 28, Anion Gap 16.0 H, BUN 9, Creatinine 0.70, Estimated Creat Clear 82, Estimated GFR 84, Est GFR ( Amer) 102, Glucose 184 H, Calcium 9.1, Phosphorus 4.4, Magnesium 1.8, Total Bilirubin 0.8, AST 34, ALT 18, Alkaline Phosphatase 109, CK-MB (CK-2) < 0.2, Troponin I < 0.01, NT-Pro-B Natriuret Pep 394 H, Total Protein 7.5, Albumin 3.5, Globulin 4.0 H, Albumin/Globulin Ratio 0.9 L, TSH 0.74, Urine Color Yellow, Urine Appearance Clear, Urine pH 6.0, Ur Specific [employer] >= 1.030, Urine Protein Negative, Urine Glucose (UA) Negative, Urine Ketones Negative, Urine Blood Negative, Urine Nitrate Negative, Urine Bilirubin 2+ A, Urine Urobilinogen 0.2, Ur Leukocyte Esterase Negative, Urine RBC None, Urine WBC None, Ur Squamous Epith Cells Occasional, Urine Bacteria Trace, Salicylates < 1.0 L, Urine Opiates Screen Negative, Urine Methadone Screen Positive H, Acetaminophen < 10 L, Ur Barbituates Screen Negative, Ur Phencyclidine Scrn Nega
--- NOTE | 2023-02-19 09:30 | PC.NURSE ---
MD Amos ordered to stop IVF and start 1L LR bolus for soft bp prior to bronch, bolus started, consent obtained by daughter Summer at bedside
--- NOTE | 2023-02-19 10:40 | PC.NURSE ---
bolus complete, bp 97/53 (67), team setting up for bronch at bedside
--- NOTE | 2023-02-19 10:52 | PC.NURSE ---
MD Amos at bedside starting bronch
--- NOTE | 2023-02-19 11:15 | PC.NURSE ---
bronch complete, bp 113/59 (77), 2mg ativan and 25mcg fentanyl given during procedure
--- NOTE | 2023-02-19 11:57 | EXP.BRONCH.N ---
Procedure: Date: 02/19/23 Patient Date of :: 1955 Procedure Performed:: Bronchoscopy with airway examination bronchoalveolar lavage Indications:: Aspiration pneumonia, acute hypoxic respiratory failure needing mechanical ventilatory support Performing Provider:: Salvatore Yang MD Referring Provider:: Dr. Cox Sedation:: On propofol, intubated and sedated. Received additional 25 mcg of fentanyl and 2 mg IV Versed to facilitate the procedure Procedure:: Bronchoscopy airway examination and bronchoalveolar lavage: A clean DIAGNOSTIC bronchoscopy was advanced through the ET tube and airways were examined up to subsegmental bronchi. Airways appeared grossly normal. Copious amount of thick mucoid secretions were noted throughout the right mainstem bronchi right upper lobe on right lower lobe bronchus. Mucoid secretions also noted in the left lower lobe bronchus. No mucous plugging active bleeding/old blood clots noted. All the noted secretions were suctioned clearly and then bronchoalveolar lavage was performed in the RIGHT MIDDLE LOBE with instillation of 60 cc normal saline with return of 30 cc back. BAL fluid was sent for cell count and differential along with bacterial fungal and AFB stain and cultures. Patient tolerated the procedure with no immediate acute complications. Findings:: Please see the procedure note Recommendations:: Please see the procedure note and consult note from today Complications:: No acute immediate complications Estimated blood obtained (mL): 0
[2023-02-19 17:58] LABS: POC Glucose,Bedside 116 (70-110)
[2023-02-20] VITALS (37 sets, daily range): BP systolic 99–159; BP diastolic 54–94; PULSE 88–135; RESP 17–39; TEMP 36.9–38.4; O2SAT 91–100; BMI 31.8
[2023-02-20 06:44] LABS: ABG PCO2 39.5 mmhg (35.0-45.0); ABG PH 7.43 mmol/L (7.35-7.45); ABG PO2 78.1 mmhg (80-100); Allen's Test ACCEPTABLE; Oxygen 60% %; PEEP 8; Source R RADIAL; Tidal Volume 420; Vent Rate 18
[2023-02-20 06:45] LABS: ABG Base Excess 1.5 mmol/L (-2.4-2.3); ABG HCO3 25.7 mmhg (22.0-26.0); ABG Oxygen Saturation 96 % (90-100)
--- NOTE | 2023-02-20 07:34 | XR_ITS ---
FINAL REPORT CLINICAL HISTORY: intubated, possible sbt COMPARISON: 02/19/2023 FINDINGS: The heart size is normal. The mediastinum is normal. An endotracheal tube remains present with its tip 5 cm superior to the karlo. There are moderate bilateral effusions as well as pulmonary vascular congestion, unchanged since the prior exam of 02/19/2023. There is no pneumothorax. There is no osseous abnormality. IMPRESSION: Moderate bilateral pleural effusions and pulmonary vascular congestion, unchanged since 02/19/2023 Reviewed, Interpreted and Dictated by Chele Lloyd MD Transcribed by Carol Gallagher Authenticated and [facility]
--- NOTE | 2023-02-20 08:24 | EXP.PN ---
Subjective *Date: 02/21/23 *Time: 03:06 Interval history: She is intubated and sedated. Exam Data for Last 24 hours Vital signs and Labs for Last 24 Hours: Temp Pulse Resp BP Pulse Ox O2 Del Method FiO2 99 F 101 H 18 110/62 98 Mechanical Ventilation 60 02/20/23 05:00 02/20/23 06:46 02/20/23 06:46 02/20/23 06:46 02/20/23 06:46 02/20/23 06:46 02/20/23 06:46 Laboratory Results - last 24 hr 02/18/23 13:35: Specimen Source Right radial, O2 % 100, ABG pH 7.38, ABG pCO2 48.9 H, ABG pO2 180.7 H, ABG HCO3 28.3 H, ABG Total CO2 29.8 H, ABG O2 Saturation 100, ABG Base Excess 3.2 H, Sonu Test Acceptable, Vent Rate 20, Tidal Volume 420, PEEP 5 02/19/23 17:48: POC Glucose 116 H 02/20/23 06:36: Specimen Source R radial, O2 % 60%, ABG pH 7.43, ABG pCO2 39.5, ABG pO2 78.1 L, ABG HCO3 25.7, ABG Total CO2 27.0, ABG O2 Saturation 96, ABG Base Excess 1.5, Sonu Test Acceptable, Vent Rate 18, Tidal Volume 420, PEEP 8 I & O for Last 24 hours: Intake & Output 02/17/23 02/18/23 02/19/23 02/20/23 23:59 23:59 23:59 23:59 Intake Total 629.0 / 752.6 3592.1 / 3592.1 493.8 / 493.8 Output Total 695 / 695 1095 / 1095 275 / 275 Balance -66.0 / 57.6 2497.1 / 2497.1 218.8 / 218.8 Weight 92.278 kg 95.396 kg Constitutional Constitutional: no acute distress *Routine HEENT Exam Head: Present normocephalic Eye: Present EOMI and PERRL ENT: Present mucous membranes moist *Routine Neck Exam Neck: Present supple; Absent lymphadenopathy Routine Chest/Breast/Axilla Exam Comments: intubated *Routine Respiratory Exam Respiratory: Present symmetric chest movement Comments: coarse breath sounds bilaterally *Routine Cardiovascular Exam Cardiovascular: Present RRR *Routine Abdominal Exam Abdominal: Present soft and normoactive bowel sounds; Absent tenderness *Routine Extremities Exam Extremities: Absent cyanosis, clubbing or edema *Routine Skin Exam Skin: Present warm; Absent rash *Routine Neurological Exam Neurological: Present alert and oriented X3 Assessment and Plan *Assessment and plan (1) Chronic low back pain: Status: Chronic Qualifiers: Back pain laterality: bilateral Sciatica presence: without sciatica Qualified Code(s): M54.5 - Low back pain; G89.29 - Other chronic pain Category: Medical Code(s): M54.5 - Low back pain; G89.29 - Other chronic pain (2) Anxiety and depression: Status: Chronic Category: Medical Code(s): F41.9 - Anxiety disorder, unspecified; F32.9 - Major depressive disorder, single episode, unspecified (3) Acute encephalopathy: Status: Acute Category: Medical Code(s): G93.40 - Encephalopathy, unspecified (4) Drug overdose of undetermined intent: Status: Acute Category: Medical Code(s): T50.904A - Poisoning by unspecified drugs, medicaments and biological substances, undetermined, initial encounter (5) Respiratory failure: Status: Acute Category: Medical Code(s): J96.90 - Respiratory failure, unspecified, unspecified whether with hypoxia or hypercapnia Plan #drug overdose #acute respiratory failure #acute encephalopathy #possible aspiration pneumonitis/pneumonia #chronic back pain I believe the patient accidentally overdosed on medications for her chronic back pain; she is known to take more than what has been prescribed to her. Culprit medications could include methadone, Klonapin, methocarbamol and Buspar. Among the pills that were found scattered by her were metoprolol and furosemide but the patient hasn't had hypotension. Will continue to monitor blood pressures closely. I really appreciate Pulmonology's care for the patient. Continue vent per Pulmonology. Continue Zosyn to cover for possible aspiration pneumonitis vs pneumonia. She spiked a fever of 101 F so will add Vancomycin, pharmacy to dose. A dose of lasix IV 40mg was ordered by Pulmonology. She chronically takes high doses of
[2023-02-20 09:21] LABS: Alanine Aminotransferase 28 U/L (12-78); Albumin Level 3.1 g/dl (3.5-5.0); Albumin/Globulin Ratio 0.9 (1.1-1.8); Alkaline Phosphatase 86 U/L (38-126); Anion Gap 14.1 mEq/L (5-15); Aspartate Amino Transferase 134 U/L (14-36); Bilirubin,Total 1.1 mg/dl (0.2-1.3); Blood Urea Nitrogen 9 mg/dl (7-17); Calcium 7.9 mg/dl (8.4-10.2); Carbon Dioxide 26 mmol/L (22.0-30.0); Chloride 104 mmol/L (98-107); Creatinine Clearance Estimated 84 mL/min (50-200); Estimated Glomerular Filt Rate 100 ml/min (>60); GFR (African American) 121 ML/MIN (>60); Globulin 3.6 g/dL (1.3-3.2); Glucose 122 mg/dl (74-100); Potassium 3.1 mmoL/L (3.5-5.1); Sodium 141 mmol/L (136-145); Total Protein,Serum 6.7 g/dl (6.3-8.2)
--- NOTE | 2023-02-20 09:34 | EXP.PULM.PN ---
Subjective *Date: 02/20/23 *Time: 10:19 Interval history: No acute respiratory vents overnight. No new respiratory complaints. Pulmonology Exam Inpatient Vital signs and Labs for Last 24 Hours: Temp Pulse Resp BP Pulse Ox O2 Del Method FiO2 98.5 F 103 H 21 118/73 100 Mechanical Ventilation 60 02/20/23 08:00 02/20/23 08:00 02/20/23 09:22 02/20/23 08:00 02/20/23 09:22 02/20/23 08:47 02/20/23 09:22 Laboratory Results - last 24 hr 02/19/23 17:48: POC Glucose 116 H 02/20/23 06:36: Specimen Source R radial, O2 % 60%, ABG pH 7.43, ABG pCO2 39.5, ABG pO2 78.1 L, ABG HCO3 25.7, ABG Total CO2 27.0, ABG O2 Saturation 96, ABG Base Excess 1.5, Sonu Test Acceptable, Vent Rate 18, Tidal Volume 420, PEEP 8 02/20/23 08:50: Sodium 141, Potassium 3.1 L D, Chloride 104, Carbon Dioxide 26, Anion Gap 14.1, BUN 9, Creatinine 0.60, Estimated Creat Clear 84, Estimated GFR 100, Est GFR ( Amer) 121, Glucose 122 H, Calcium 7.9 L, Total Bilirubin 1.1, AST 134 H D, ALT 28, Alkaline Phosphatase 86, Total Protein 6.7, Albumin 3.1 L, Globulin 3.6 H, Albumin/Globulin Ratio 0.9 L I & O for Labs for Last 24 Hours: Intake & Output 02/17/23 02/18/23 02/19/23 02/20/23 23:59 23:59 23:59 23:59 Intake Total 629.0 / 752.6 3592.1 / 3592.1 493.8 / 493.8 Output Total 695 / 695 1095 / 1095 275 / 275 Balance -66.0 / 57.6 2497.1 / 2497.1 218.8 / 218.8 Weight 203 lb 7 oz 210 lb 5 oz Constitutional: Present severe distress Comment:: Intubated and Sedated Head: Present normocephalic and atraumatic Neck: Present normal inspection and trachea midline Respiratory: Present patient mechanically ventilated, prolonged expiratory phase, respiratory distress and rhonchi; Absent CTA bilaterally Cardiac: Present S1/S2 and Tachycardia GI: Present soft; Absent distention or tenderness Skin: Present intact; Absent cyanosis Neuro: Absent alert, awake or oriented x 3 Comment:: Intubated and sedated Extremities: Present normal inspection; Absent clubbing or cyanosis Psychiatric: Present unable to assess Assessment and Plan *Assessment and plan (1) On mechanically assisted ventilation: Status: Acute Category: Medical Code(s): Z99.11 - Dependence on respirator [ventilator] status (2) Acute respiratory failure with hypoxia: Status: Acute Category: Medical Code(s): J96.01 - Acute respiratory failure with hypoxia Plan Ms. Azevedo is a 67-year-old female significant smoking history asthma allergic rhinitis restrictive lung disease and abnormal HRCT presented to the ER with altered mentation concerning for drug overdose eventually intubated for airway protection and pulmonary was called for further evaluation and management. Leukocytosis upon admission relatively stable today Chest x-ray from this morning continue to show right lower lobe infiltrate slightly worsening from admission. UDS upon admission positive for methadone. Salicylates and Tylenol levels within normal limits. ABG on admission showed respiratory alkalosis with a pH of 7.52 CO2 31 point along with hypoxic respiratory failure with a PO2 of 15.9. On admission BUN/creatinine within normal limits. Interval update: Chest x-ray continues show right lower lobe infiltrate along with small left pleural effusion. No significant change from yesterday. ABG from this morning improving hypoxic respiratory failure. Cultures pending awaiting results. Continue to receive Zosyn along with DuoNebs and Pulmicort. BUN/creatinine stable. Adequate urine output. Plan: Continue starting with propofol and fentanyl, wean sedation to facilitate SBT. Continue mechanical ventilator support, stable settings from yesterday at PEEP of 8 FiO2 60% and a rate of 18. Hypoxic respiratory failure improving. We will perform SBT today. Currently on Zosyn, low threshold o deescalate antibiotics pending tracheal aspirate culture Continue DuoNebs every 6 hours scheduled and Pulmicort every 12hrs [place]
[2023-02-20 10:23] LABS: Basophils # 0.1 K/mm3 (0-0.2); Basophils % 0.3 % (0.1-2.0); Eosinophils # 0.4 K/mm3 (0.0-0.4); Hematocrit 40.4 % (37.0-47.0); Hemoglobin 13.2 g/dL (12.2-16.2); Lymphocytes # 1.8 K/mm3 (0.7-4.5); Lymphocytes % 9.5 % (10-50); Mean Corpuscular HGB Conc 32.8 g/dL (31.8-35.4); Mean Corpuscular Hemoglobin 27.1 pg (27.0-31.2); Mean Corpuscular Volume 82.8 fl (81-99); Mean Platelet Volume 9.4 fl (7.4-10.4); Monocytes # 1.3 K/mm3 (0.1-1.0); Monocytes % 6.6 % (1.7-9.3); Neutrophils # 15.9 K/mm3 (1.8-7.8); Neutrophils % 81.7 % (37.0-80.0); Platelet Count 157 K/mm3 (142-424); Red Blood Count 4.87 M/mm3 (4.20-5.40); Red Cell Distribution Width 15.9 % (11.5-17.5); White Blood Count 19.5 K/mm3 (4.8-10.8)
[2023-02-20 10:24] LABS: MANUAL DIFFERENTIAL MANUAL DIFFERENTIAL (MANUAL DIFF)
[2023-02-20 11:14] LABS: Eosinophils % 1 % (0-3); Lymphocytes % 17 % (10-50); Monocytes % 5 % (2-9); Neutrophils % 77 % (42-76); Platelet Estimate Normal; RBC Morphology Normal; Total Cells Counted 100
--- NOTE | 2023-02-20 11:30 | DIET.NUTRFU ---
Addendum entered by Adilene Rasmussen RD, LD 02/20/23 11:52: reviewed dietary hx with family, no dietary concerns at this time. She ate whenever and whatever she wanted with stable weight. No BM recorded since admit on 02/18 at 17:21, she is on pain meds may need bowel regimen will review again tomorrow. Urine output 945ml 02/19. Original Note: RD consulted for TF recommendations, patient was unable to extubate this morning. Has a ET in place. Receiving propofol, 85ml yesterday=95kcal. Start pulomcare at 20ml/hr with goal rate of 45ml/hr, advance as tolerated. once propofol discontinued if TF still need can increase to 50ml/hr to best meet needs. goal rate of 45ml/hr will [id number] and 67.6gm protein and 800ml from formula. Start minimal flushes via tube, she is receiving IVF for hydration. Hydration on 02/19 are WNL, labs were ordered today, no results as this time. Per pharmacy lasix ordered today one time dose, staff report reports patient is edematous.
--- NOTE | 2023-02-20 13:08 | PC.NURSE ---
Rounded on patient; Patient currently intubated, family at bedside. They deny having any questions or concerns. Call light within reach and family educated on use. Bed is locked and in the lowest position.
--- NOTE | 2023-02-20 14:34 | EXP.PHA.CONS ---
Pharmacy Consult Date: 02/20/23 Time: 14:39 Referring provider: DR WERNER Reason for Consult:: VANCOMYCIN DOSING CONSULT Allergies Allergy/AdvReac Type Severity Reaction Status Date / Time No Known Allergies Allergy Verified 11/07/22 14:27 Home Medications Medication Instructions Recorded Confirmed Type methadone 10 mg tablet 10 mg PO TID Pain 10/09/20 02/18/23 History oxycodone 10 mg tablet 10 mg PO BID Pain 03/27/22 02/19/23 History amlodipine 5 mg tablet 5 mg PO DAILY High Blood Pressure 02/18/23 02/18/23 History aspirin 81 mg tablet,delayed 81 mg PO DAILY Heart Health 02/18/23 02/18/23 History release buspirone 5 mg tablet 5 mg PO TID Anxiety 02/18/23 02/19/23 History clonazepam 1 mg tablet (Klonopin) 1 mg PO TID Anxiety 02/18/23 02/18/23 History furosemide 20 mg tablet 20 mg PO DAILY Fluid 02/18/23 02/18/23 History lisinopril 40 mg tablet 20 mg PO BID High Blood Pressure 02/18/23 02/18/23 History metoprolol succinate 50 mg 50 mg PO BID High Blood Pressure 02/18/23 02/18/23 History tablet,extended release 24 hr naloxegol 25 mg tablet (Movantik) 25 mg PO DAILY Constipation 02/18/23 02/18/23 History omeprazole 40 mg capsule,delayed 40 mg PO DAILY Acid Reflux 02/18/23 02/18/23 History release potassium chloride 10 mEq 10 meq PO DAILY Supplement 02/18/23 02/18/23 History capsule,extended release albuterol sulfate 90 mcg/actuation 2 puff inhalation Q4HP PRN 02/19/23 02/19/23 History aerosol inhaler Shortness Of Breath fluticasone fur. 200 mcg-umeclid 1 ea inhalation DAILY Breathing 02/19/23 02/19/23 History 62.5 mcg-vilant 25 mcg Problems inhalat.powder (Trelegy Ellipta) methocarbamol 750 mg tablet 750 mg PO BID Pain 02/19/23 02/19/23 History promethazine 25 mg tablet 25 mg PO TIDP PRN nausea and 02/19/23 02/19/23 History vomiting New Prescriptions to Start Prescriptions: Height: 1.73 m Weight: 95.39 kg Laboratory Results:: Laboratory Results - last 24 hr 02/19/23 17:48: POC Glucose 116 H 02/20/23 06:36: Specimen Source R radial, O2 % 60%, ABG pH 7.43, ABG pCO2 39.5, ABG pO2 78.1 L, ABG HCO3 25.7, ABG Total CO2 27.0, ABG O2 Saturation 96, ABG Base Excess 1.5, Sonu Test Acceptable, Vent Rate 18, Tidal Volume 420, PEEP 8 02/20/23 08:50: Sodium 141, Potassium 3.1 L D, Chloride 104, Carbon Dioxide 26, Anion Gap 14.1, BUN 9, Creatinine 0.60, Estimated Creat Clear 84, Estimated GFR 100, Est GFR ( Amer) 121, Glucose 122 H, Calcium 7.9 L, Total Bilirubin 1.1, AST 134 H D, ALT 28, Alkaline Phosphatase 86, Total Protein 6.7, Albumin 3.1 L, Globulin 3.6 H, Albumin/Globulin Ratio 0.9 L 02/20/23 10:16: WBC 19.5 H, RBC 4.87, Hgb 13.2, Hct 40.4, MCV 82.8, MCH 27.1, MCHC 32.8, RDW 15.9, Plt Count 157, MPV 9.4, Neut % (Auto) 81.7 H, Lymph % (Auto) 9.5 L, [place] % (Auto) 6.6, Eos % (Auto) 2.0, Baso % (Auto) 0.3, Neut # (Auto) 15.9 H, Lymph # (Auto) 1.8, [place] # (Auto) 1.3 H, Eos # (Auto) 0.4, Baso # (Auto) 0.1, Total Counted 100, Neutrophils % (Manual) 77 H, Lymphocytes % (Manual) 17, Monocytes % (Manual) 5, Eosinophils % (Manual) 1, Platelet Estimate Normal, RBC Morphology Normal Medical History: Medical History (Updated 02/19/23 @ 09:21 by Salvatore Yang MD) Abnormal PFT Acute respiratory failure with hypoxia Antineutrophil cytoplasmic antibody (ANCA) positive Anxiety and depression Asthma CAD (coronary artery disease) Chronic low back pain COPD (chronic obstructive pulmonary disease) Diastolic dysfunction Dyspnea on exertion Elevated left ventricular end-diastolic pressure (LVEDP) Gabapentin overdose HTN (hypertension) Interstitial pneumonia Methadone overdose Moderate persistent asthma On mechanically assisted ventilation Panic attacks Pneumonia, community acquired PTSD (post-traumatic stress disorder) 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
[2023-02-20 18:20] LABS: POC Glucose,Bedside 110 (70-110)
--- NOTE | 2023-02-20 19:03 | PC.NURSE ---
Midline insertion attempt to left arm with no success, 20g US guided IV placed to right upper arm and 20g IV inserted to right FA
--- NOTE | 2023-02-20 19:53 | PC.NURSE ---
2 new IV's started in left arm, 20G left bicep and 20 left forearm (20 left AC removed); propofol going at 15mcg/kg/min in left bicep right arm propped on several pillows, k pad to be placed back on for 20 minutes at 2000
--- NOTE | 2023-02-20 21:00 | PC.NURSE ---
Tube feed residual was check with 10mL. Current rate is 20mL/hr with goal rate of 40mL/hr. Changed patient to her goal rate and will recheck residual in 4 hours. Patient tolerating tube feeds others
[2023-02-21] VITALS (29 sets, daily range): BP systolic 107–158; BP diastolic 60–92; PULSE 83–132; RESP 17–45; TEMP 36.3–38.2; O2SAT 85–100; BMI 31.2
[2023-02-21 00:56] LABS: POC Glucose,Bedside 115 (70-110)
[2023-02-21 06:05] LABS: Eosinophils # 0.3 K/mm3 (0.0-0.4); Monocytes # 0.7 K/mm3 (0.1-1.0)
[2023-02-21 06:21] LABS: Basophils % 0.3 % (0.1-2.0); Eosinophils % 2.1 % (0.1-12.0); Lymphocytes # 1.6 K/mm3 (0.7-4.5); Lymphocytes % 12.4 % (10-50); Mean Corpuscular HGB Conc 30.9 g/dL (31.8-35.4); Mean Corpuscular Hemoglobin 25.1 pg (27.0-31.2); Mean Corpuscular Volume 81.5 fl (81-99); Mean Platelet Volume 9.5 fl (7.4-10.4); Monocytes % 5.2 % (1.7-9.3); Neutrophils # 10.4 K/mm3 (1.8-7.8); Neutrophils % 80.1 % (37.0-80.0); Platelet Count 179 K/mm3 (142-424); Red Blood Count 4.66 M/mm3 (4.20-5.40); Red Cell Distribution Width 16.1 % (11.5-17.5)
[2023-02-21 06:22] LABS: Hemoglobin 11.7 g/dL (12.2-16.2)
[2023-02-21 06:25] LABS: Alanine Aminotransferase 27 U/L (12-78); Albumin Level 2.8 g/dl (3.5-5.0); Albumin/Globulin Ratio 0.8 (1.1-1.8); Alkaline Phosphatase 92 U/L (38-126); Anion Gap 10.6 mEq/L (5-15); Aspartate Amino Transferase 107 U/L (14-36); Bilirubin,Total 0.6 mg/dl (0.2-1.3); Blood Urea Nitrogen 15 mg/dl (7-17); Calcium 7.6 mg/dl (8.4-10.2); Carbon Dioxide 30 mmol/L (22.0-30.0); Chloride 102 mmol/L (98-107); Creatinine Clearance Estimated 84 mL/min (50-200); Estimated Glomerular Filt Rate 84 ml/min (>60); GFR (African American) 102 ML/MIN (>60); Globulin 3.4 g/dL (1.3-3.2); Glucose 140 mg/dl (74-100); Sodium 140 mmol/L (136-145); Total Protein,Serum 6.2 g/dl (6.3-8.2)
[2023-02-21 06:31] LABS: Potassium 2.6 mmoL/L (3.5-5.1)
[2023-02-21 07:04] LABS: ABG Base Excess 6.4 mmol/L (-2.4-2.3); ABG Oxygen Saturation 94 % (90-100); ABG PCO2 41.9 mmhg (35.0-45.0); ABG PH 7.47 mmol/L (7.35-7.45); ABG TCO2 31.3 mmhg (23-27); Oxygen 50 %; PEEP 8; Tidal Volume 420; Vent Rate 18
[2023-02-21 07:05] LABS: Allen's Test Patient Unable; Source Right Radial
--- NOTE | 2023-02-21 07:36 | XR_ITS ---
FINAL REPORT CLINICAL HISTORY: hypoxia COMPARISON: 02/20/2023 FINDINGS: The endotracheal tube remains well-positioned, and an NG tube is present in the stomach. There is once again a 45 degree scoliosis identified convex to the right. The bilateral infiltrates have improved, with residual patchy right perihilar airspace opacity, which may represent pneumonia or be the result of aspiration. The heart size is normal. The mediastinum is normal. IMPRESSION: Bilateral infiltrates have overall improved, with residual patchy right perihilar airspace opacity as described. This may represent pneumonia or be the result of aspiration. Reviewed, Interpreted and Dictated by Chele Lloyd MD Transcribed by Carol Gallagher Authenticated and [facility]
--- NOTE | 2023-02-21 08:50 | EXP.PN ---
Subjective *Date: 02/21/23 *Time: 19:16 Interval history: No acute events overnight. Exam Data for Last 24 hours Vital signs and Labs for Last 24 Hours: Temp Pulse Resp BP Pulse Ox O2 Del Method FiO2 98.4 F 83 18 116/65 92 L Mechanical Ventilation 50 02/21/23 06:00 02/21/23 06:00 02/21/23 06:00 02/21/23 06:00 02/21/23 06:00 02/21/23 06:16 02/21/23 06:00 Laboratory Results - last 24 hr 02/20/23 08:50: Sodium 141, Potassium 3.1 L D, Chloride 104, Carbon Dioxide 26, Anion Gap 14.1, BUN 9, Creatinine 0.60, Estimated Creat Clear 84, Estimated GFR 100, Est GFR ( Amer) 121, Glucose 122 H, Calcium 7.9 L, Total Bilirubin 1.1, AST 134 H D, ALT 28, Alkaline Phosphatase 86, Total Protein 6.7, Albumin 3.1 L, Globulin 3.6 H, Albumin/Globulin Ratio 0.9 L 02/20/23 10:16: WBC 19.5 H, RBC 4.87, Hgb 13.2, Hct 40.4, MCV 82.8, MCH 27.1, MCHC 32.8, RDW 15.9, Plt Count 157, MPV 9.4, Neut % (Auto) 81.7 H, Lymph % (Auto) 9.5 L, [place] % (Auto) 6.6, Eos % (Auto) 2.0, Baso % (Auto) 0.3, Neut # (Auto) 15.9 H, Lymph # (Auto) 1.8, [place] # (Auto) 1.3 H, Eos # (Auto) 0.4, Baso # (Auto) 0.1, Total Counted 100, Neutrophils % (Manual) 77 H, Lymphocytes % (Manual) 17, Monocytes % (Manual) 5, Eosinophils % (Manual) 1, Platelet Estimate Normal, RBC Morphology Normal 02/20/23 18:13: POC Glucose 110 02/21/23 00:48: POC Glucose 115 H 02/21/23 05:20: WBC 13.0 H D, RBC 4.66, Hgb 11.7 L D, Hct 38.0, MCV 81.5, MCH 25.1 L, MCHC 30.9 L, RDW 16.1, Plt Count 179, MPV 9.5, Neut % (Auto) 80.1 H, Lymph % (Auto) 12.4, [place] % (Auto) 5.2, Eos % (Auto) 2.1, Baso % (Auto) 0.3, Neut # (Auto) 10.4 H, Lymph # (Auto) 1.6, [place] # (Auto) 0.7, Eos # (Auto) 0.3, Baso # (Auto) 0.0, Sodium 140, Potassium 2.6 L*, Chloride 102, Carbon Dioxide 30, Anion Gap 10.6, BUN 15 D, Creatinine 0.70, Estimated Creat Clear 84, Estimated GFR 84, Est GFR ( Amer) 102, Glucose 140 H, Calcium 7.6 L, Total Bilirubin 0.6, AST 107 H, ALT 27, Alkaline Phosphatase 92, Total Protein 6.2 L, Albumin 2.8 L, Globulin 3.4 H, Albumin/Globulin Ratio 0.8 L 02/21/23 07:00: Specimen Source Right radial, O2 % 50, ABG pH 7.47 H, ABG pCO2 41.9, ABG pO2 66.0 L, ABG HCO3 30.0 H, ABG Total CO2 31.3 H, ABG O2 Saturation 94, ABG Base Excess 6.4 H, Sonu Test Patient unable, Vent Rate 18, Tidal Volume 420, PEEP 8 I & O for Last 24 hours: Intake & Output 02/18/23 02/19/23 02/20/23 02/21/23 23:59 23:59 23:59 23:59 Intake Total 629.0 / 752.6 3592.1 / 3592.1 819.8 / 967.8 1864 / 1864 Output Total 695 / 695 1095 / 1095 3340 / 3415 400 / 400 Balance -66.0 / 57.6 2497.1 / 2497.1 -2520.2 / -2447.2 1464 / 1464 Weight 92.278 kg 95.39 kg 93.44 kg Microbiology Reports for the Last 24 Hours: Microbiology 02/18/23 Unknown Blood Blood Culture - Preliminary NO GROWTH AFTER 48 HOURS 02/18/23 Unknown Blood Blood Culture - Preliminary NO GROWTH AFTER 48 HOURS Constitutional Constitutional: no acute distress *Routine HEENT Exam Head: Present normocephalic Eye: Present EOMI and PERRL ENT: Present mucous membranes moist *Routine Neck Exam Neck: Present supple; Absent lymphadenopathy Routine Chest/Breast/Axilla Exam Comments: intubated *Routine Respiratory Exam Respiratory: Present symmetric chest movement Comments: coarse breath sounds bilaterally *Routine Cardiovascular Exam Cardiovascular: Present RRR *Routine Abdominal Exam Abdominal: Present soft and normoactive bowel sounds; Absent tenderness *Routine Extremities Exam Extremities: Absent cyanosis, clubbing or edema *Routine Skin Exam Skin: Present warm; Absent rash *Routine Neurological Exam Neurological: Present alert and oriented X3 Assessment and Plan *Assessment and plan (1) Chronic low back pain: Status: Chronic Qualifiers: Back pain laterality: bilateral Sciatica presence: without sciatica Qualified Code(s): M54.5 - Low back pain; G89.29 - Other chroni
--- NOTE | 2023-02-21 09:41 | EXP.PULM.PN ---
Subjective *Date: 02/21/23 *Time: 10:21 Interval history: No acute respiratory vents overnight. Stable oxygen requirements. No new respiratory complaints. Pulmonology Exam Inpatient Vital signs and Labs for Last 24 Hours: Temp Pulse Resp BP Pulse Ox O2 Del Method FiO2 98.4 F 83 18 116/65 92 L Mechanical Ventilation 50 02/21/23 06:00 02/21/23 06:00 02/21/23 06:00 02/21/23 06:00 02/21/23 06:00 02/21/23 06:16 02/21/23 06:00 Laboratory Results - last 24 hr 02/20/23 10:16: WBC 19.5 H, RBC 4.87, Hgb 13.2, Hct 40.4, MCV 82.8, MCH 27.1, MCHC 32.8, RDW 15.9, Plt Count 157, MPV 9.4, Neut % (Auto) 81.7 H, Lymph % (Auto) 9.5 L, [place] % (Auto) 6.6, Eos % (Auto) 2.0, Baso % (Auto) 0.3, Neut # (Auto) 15.9 H, Lymph # (Auto) 1.8, [place] # (Auto) 1.3 H, Eos # (Auto) 0.4, Baso # (Auto) 0.1, Total Counted 100, Neutrophils % (Manual) 77 H, Lymphocytes % (Manual) 17, Monocytes % (Manual) 5, Eosinophils % (Manual) 1, Platelet Estimate Normal, RBC Morphology Normal 02/20/23 18:13: POC Glucose 110 02/21/23 00:48: POC Glucose 115 H 02/21/23 05:20: WBC 13.0 H D, RBC 4.66, Hgb 11.7 L D, Hct 38.0, MCV 81.5, MCH 25.1 L, MCHC 30.9 L, RDW 16.1, Plt Count 179, MPV 9.5, Neut % (Auto) 80.1 H, Lymph % (Auto) 12.4, [place] % (Auto) 5.2, Eos % (Auto) 2.1, Baso % (Auto) 0.3, Neut # (Auto) 10.4 H, Lymph # (Auto) 1.6, [place] # (Auto) 0.7, Eos # (Auto) 0.3, Baso # (Auto) 0.0, Sodium 140, Potassium 2.6 L*, Chloride 102, Carbon Dioxide 30, Anion Gap 10.6, BUN 15 D, Creatinine 0.70, Estimated Creat Clear 84, Estimated GFR 84, Est GFR ( Amer) 102, Glucose 140 H, Calcium 7.6 L, Total Bilirubin 0.6, AST 107 H, ALT 27, Alkaline Phosphatase 92, Total Protein 6.2 L, Albumin 2.8 L, Globulin 3.4 H, Albumin/Globulin Ratio 0.8 L 02/21/23 07:00: Specimen Source Right radial, O2 % 50, ABG pH 7.47 H, ABG pCO2 41.9, ABG pO2 66.0 L, ABG HCO3 30.0 H, ABG Total CO2 31.3 H, ABG O2 Saturation 94, ABG Base Excess 6.4 H, Sonu Test Patient unable, Vent Rate 18, Tidal Volume 420, PEEP 8 I & O for Labs for Last 24 Hours: Intake & Output 02/18/23 02/19/23 02/20/23 02/21/23 23:59 23:59 23:59 23:59 Intake Total 629.0 / 752.6 3592.1 / 3592.1 819.8 / 967.8 1864 / 1864 Output Total 695 / 695 1095 / 1095 3340 / 3415 400 / 400 Balance -66.0 / 57.6 2497.1 / 2497.1 -2520.2 / -2447.2 1464 / 1464 Weight 203 lb 7 oz 210 lb 4.783 oz 206 lb Microbiology Reports for the Last 24 Hours: Microbiology 02/18/23 Unknown Blood Blood Culture - Preliminary NO GROWTH AFTER 48 HOURS 02/18/23 Unknown Blood Blood Culture - Preliminary NO GROWTH AFTER 48 HOURS Constitutional: Present severe distress Comment:: Intubated and Sedated Head: Present normocephalic and atraumatic Neck: Present normal inspection and trachea midline Respiratory: Present patient mechanically ventilated, prolonged expiratory phase, respiratory distress and rhonchi; Absent CTA bilaterally Cardiac: Present S1/S2 and Tachycardia GI: Present soft; Absent distention or tenderness Skin: Present intact; Absent cyanosis Neuro: Present awake; Absent alert or oriented x 3 Comment:: Intubated and sedated Extremities: Present normal inspection; Absent clubbing or cyanosis Psychiatric: Present unable to assess Assessment and Plan *Assessment and plan (1) On mechanically assisted ventilation: Status: Acute Category: Medical Code(s): Z99.11 - Dependence on respirator [ventilator] status (2) Acute respiratory failure with hypoxia: Status: Acute Category: Medical Code(s): J96.01 - Acute respiratory failure with hypoxia Plan Ms. Azevedo is a 67-year-old female significant smoking history asthma allergic rhinitis restrictive lung disease and abnormal HRCT presented to the ER with altered mentation concerning for drug overdose eventually intubated for airway protection and pulmonary was called for further evaluation and management. Leuko
--- NOTE | 2023-02-21 10:00 | PC.NURSE ---
Aria, RT at bedside to switch pt over for SBT.
--- NOTE | 2023-02-21 10:34 | PC.NURSE ---
telfa and kerlix dressing applied to right forearm. Dx instructions given per Kain Rivera.
--- NOTE | 2023-02-21 11:24 | PC.NURSE ---
RT at bedside.
--- NOTE | 2023-02-21 11:33 | HMH.PTWOUND ---
Rehab Inpt Wound Evaluation Rehab IP Wound Evaluation Start: 02/21/23 10:09 Freq: ONCE Status: Active Protocol: Document 02/21/23 11:26 PHODIANE (Rec: 02/21/23 11:33 PHORNE [id number]) Rehab PT Wound Assessment Subjective Subjective 67 yowf adm to [facility] with resp failure after being found unresponsive and required intubation. At this time, pt presents with large bullae to the R antecubital area. Wound Right Anterior Forearm Wound Type Blister Is This a Chronic Wound No Wound Length (cm) 6.0 Wound Width (cm) 4.0 Wound Margins Description Well Defined Primary Dressing Non-Adherent Gauze Pad Wound Secondary Dressing Type Gauze Roll/Wrap Dressing Change Patient Tolerance Tolerated Well Plan/Recommendation Comment No actual open wound as her bullae is contained at this time. Recommended nsg staff to cover the area in an effort to maintain skin integrity and protect the blister as much as possible allowing for appropriate healing to occur naturally as expected. Eval Complexity Eval Charge Codes 88730 - High Complexity PHYSICIAN CERTIFICATION: I certify the specified therapy services for Maggie Azevedo are required, authorized, and reviewed every 30 days.
--- NOTE | 2023-02-21 11:35 | PC.NURSE ---
Macrina, RT at bedside to extubate patient. pt placed on 6LNC.
--- NOTE | 2023-02-21 11:49 | PC.NURSE ---
Saloni in speech contacted in regards to speech evaluation needed for post extubation, informed someone would be here tomorrow.
--- NOTE | 2023-02-21 12:21 | PC.NURSE ---
Neris, RT to bedside to change pt over from 6LNC to venti mask d/t O2 sats of 86-90 range.
--- NOTE | 2023-02-21 12:29 | DIET.NUTRFU ---
Patient was up to goal rate of 40ml/hour of TF last night. Extubated today, [employer]GING CATCHER ordered. Regular diet is her baseline at home. Will follow EDGING CATCHER recommendations. Got lasix tx 02/20 and 02/21 which may cause change in weight. K was 2.6L, provider aware. Nursing indicated + 1 edema. Marshal Scale 12.
[2023-02-21 16:20] LABS: Anion Gap 13.2 mEq/L (5-15); Blood Urea Nitrogen 16 mg/dl (7-17); Calcium 8.1 mg/dl (8.4-10.2); Carbon Dioxide 31 mmol/L (22.0-30.0); Chloride 102 mmol/L (98-107); Creatinine Clearance Estimated 83 mL/min (50-200); Estimated Glomerular Filt Rate 84 ml/min (>60); GFR (African American) 102 ML/MIN (>60); Glucose 116 mg/dl (74-100); Potassium 3.2 mmoL/L (3.5-5.1); Sodium 143 mmol/L (136-145)
[2023-02-21 18:50] LABS: POC Glucose,Bedside 96 (70-110)
--- NOTE | 2023-02-21 18:50 | PC.NURSE ---
dressing to right arm changed. telfa abd pad and kerlex placed on area. some draining noted from blisters. o2 sats do drop with sleeping to upper on venturi mask. tolerating tube feeds
--- NOTE | 2023-02-21 20:01 | XR_ITS ---
PROCEDURE INFORMATION: Exam: XR Chest Exam date and time: 02/21/2023 8:04 PM Age: 67 years old Clinical indication: Shortness of breath; Additional info: SOB TECHNIQUE: Imaging protocol: Radiologic exam of the chest. Views: 1 view. COMPARISON: CR XR CHEST PORTABLE 02/21/2023 8:02 AM FINDINGS: Tubes, catheters and devices: Endotracheal tube terminates 1 cm above the karlo. Enteric tube terminates in the stomach. Lungs: Hypoaeration of the lungs. Airspace opacities in the right mid and lower lung zones and mild left basilar opacities are redemonstrated. Pleural spaces: No pleural effusion. No pneumothorax. Heart/Mediastinum: Cardiomediastinal silhouette is normal. Bones/joints: Scoliosis and lumbar vertebroplasty changes again demonstrated. IMPRESSION: 1. Bilateral pulmonary opacity, [id number], similar to prior likely representing a combination of atelectasis and pneumonia. 2. Endotracheal tube terminates 1 cm above the karlo. Enteric tube terminates in the stomach.
[2023-02-22] VITALS (27 sets, daily range): BP systolic 140–189; BP diastolic 45–114; PULSE 91–126; RESP 20–35; TEMP 36.4–37.4; O2SAT 86–117; BMI 32.0
[2023-02-22 06:59] LABS: POC Glucose,Bedside 97 (70-110)
[2023-02-22 07:45] LABS: Basophils % 0.3 % (0.1-2.0); Eosinophils # 0.3 K/mm3 (0.0-0.4); Eosinophils % 2.2 % (0.1-12.0); Hemoglobin 12.9 g/dL (12.2-16.2); Lymphocytes # 1.8 K/mm3 (0.7-4.5); Lymphocytes % 15.7 % (10-50); Mean Corpuscular HGB Conc 31.4 g/dL (31.8-35.4); Mean Corpuscular Hemoglobin 25.5 pg (27.0-31.2); Mean Corpuscular Volume 80.9 fl (81-99); Mean Platelet Volume 8.9 fl (7.4-10.4); Monocytes # 0.8 K/mm3 (0.1-1.0); Monocytes % 7.2 % (1.7-9.3); Neutrophils # 8.7 K/mm3 (1.8-7.8); Neutrophils % 74.5 % (37.0-80.0); Platelet Count 209 K/mm3 (142-424); Red Blood Count 5.06 M/mm3 (4.20-5.40); Red Cell Distribution Width 16.2 % (11.5-17.5); White Blood Count 11.7 K/mm3 (4.8-10.8)
[2023-02-22 08:21] LABS: Magnesium 1.9 mg/dl (1.6-2.3)
[2023-02-22 08:23] LABS: Alanine Aminotransferase 33 U/L (12-78); Albumin Level 3.4 g/dl (3.5-5.0); Albumin/Globulin Ratio 0.9 (1.1-1.8); Alkaline Phosphatase 110 U/L (38-126); Anion Gap 15.1 mEq/L (5-15); Aspartate Amino Transferase 121 U/L (14-36); Bilirubin,Total 0.8 mg/dl (0.2-1.3); Blood Urea Nitrogen 18 mg/dl (7-17); Calcium 8.7 mg/dl (8.4-10.2); Carbon Dioxide 30 mmol/L (22.0-30.0); Chloride 102 mmol/L (98-107); Creatinine Clearance Estimated 85 mL/min (50-200); Estimated Glomerular Filt Rate 100 ml/min (>60); GFR (African American) 121 ML/MIN (>60); Glucose 102 mg/dl (74-100); Potassium 3.1 mmoL/L (3.5-5.1); Sodium 144 mmol/L (136-145); Total Protein,Serum 7.4 g/dl (6.3-8.2)
--- NOTE | 2023-02-22 12:16 | XR_ITS ---
PROCEDURE INFORMATION: Exam: XR Chest Exam date and time: 02/22/2023 12:40 PM Age: 67 years old Clinical indication: Shortness of breath; Additional info: Low o2 sat TECHNIQUE: Imaging protocol: Radiologic exam of the chest. Views: 1 view. COMPARISON: CR XR CHEST PORTABLE 02/21/2023 8:04 PM FINDINGS: Tubes, catheters and devices: Interval removal of endotracheal and nasogastric tubes. Lungs: Continued airspace opacities in the right mid and lower lung zones. Pleural spaces: Unremarkable. No pleural effusion. No pneumothorax. Heart/Mediastinum: Unremarkable. No cardiomegaly. Bones/joints: Scoliosis and lumbar vertebroplasty again noted. IMPRESSION: 1. Interval removal of endotracheal and nasogastric tubes. 2. Continued airspace opacities in the right mid and lower lung zones.
--- NOTE | 2023-02-22 12:21 | PC.NURSE ---
telephone orders received from Dr Yang at 1215 chest xray 40meq potassium IV lasix 20mg iv
--- NOTE | 2023-02-22 12:36 | PC.NURSE ---
Bedside swallow eval performed by this RN at 1000. pt tolerated open cup with thin liquids using chin tuck method. no change in vocal quality, breath sounds and no overt coughing noted. pt morning meds crushed and admin per mar
--- NOTE | 2023-02-22 12:42 | EXP.PN ---
Subjective *Date: 02/22/23 *Time: 17:26 Interval history: The Exam Data for Last 24 hours Vital signs and Labs for Last 24 Hours: Temp Pulse Resp BP Pulse Ox O2 Del Method O2 Flow Rate 98.1 F 110 H 30 H 173/92 H 86 L Venturi Mask 15 02/22/23 08:00 02/22/23 12:13 02/22/23 07:00 02/22/23 06:00 02/22/23 12:13 02/22/23 12:13 02/22/23 12:13 FiO2 50 02/22/23 12:13 Laboratory Results - last 24 hr 02/21/23 15:22: Sodium 143, Potassium 3.2 L D, Chloride 102, Carbon Dioxide 31 H, Anion Gap 13.2, BUN 16, Creatinine 0.70, Estimated Creat Clear 83, Estimated GFR 84, Est GFR ( Amer) 102, Glucose 116 H, Calcium 8.1 L 02/21/23 18:43: POC Glucose 96 02/22/23 06:50: POC Glucose 97 02/22/23 06:56: WBC 11.7 H, RBC 5.06, Hgb 12.9, Hct 41.0, MCV 80.9 L, MCH 25.5 L, MCHC 31.4 L, RDW 16.2, Plt Count 209, MPV 8.9, Neut % (Auto) 74.5, Lymph % (Auto) 15.7, [place] % (Auto) 7.2, Eos % (Auto) 2.2, Baso % (Auto) 0.3, Neut # (Auto) 8.7 H, Lymph # (Auto) 1.8, [place] # (Auto) 0.8, Eos # (Auto) 0.3, Baso # (Auto) 0.0, Sodium 144, Potassium 3.1 L, Chloride 102, Carbon Dioxide 30, Anion Gap 15.1 H, BUN 18 H, Creatinine 0.60, Estimated Creat Clear 85, Estimated GFR 100, Est GFR ( Amer) 121, Glucose 102 H, Calcium 8.7, Magnesium 1.9, Total Bilirubin 0.8, AST 121 H, ALT 33, Alkaline Phosphatase 110, Total Protein 7.4, Albumin 3.4 L D, Globulin 4.0 H, Albumin/Globulin Ratio 0.9 L I & O for Last 24 hours: Intake & Output 08/30/23 08/31/23 09/01/23 09/02/23 23:59 23:59 23:59 23:59 Intake Total 3592.1 / 3592.1 819.8 / 967.8 2058 0 / 0 Output Total 1095 / 1095 3340 / 3415 2195 / 2255 230 / 230 Balance 2497.1 / 2497.1 -2520.2 / -2447.2 -136 / -196 -230 / -230 Weight 95.39 kg 93.44 kg 95.821 kg Microbiology Reports for the Last 24 Hours: Microbiology 02/19/23 11:07 Bronchial Washings - Right Middle Lobe - Final 02/19/23 11:07 Bronchial Washings - Right Middle Lobe Acid Fast Bacilli Smear - Final 02/19/23 11:07 Bronchial Washings - Right Middle Lobe Gram Stain - Final
[2023-02-22 12:44] LABS: ABG HCO3 28.7 mmhg (22.0-26.0); ABG Oxygen Saturation 86 % (90-100); ABG PCO2 40.2 mmhg (35.0-45.0); ABG PH 7.47 mmol/L (7.35-7.45); ABG TCO2 29.9 mmhg (23-27)
[2023-02-22 12:45] LABS: Allen's Test Acceptable; Source Left Radial
[2023-02-22 12:47] LABS: ABG PO2 49.2 mmhg (80-100)
--- NOTE | 2023-02-22 14:48 | HMH.SLDYSPHA ---
Speech & Language Evaluation Speech/Language Dysphagia Evaluation Start: 02/22/23 14:34 Freq: ONCE Status: Active Protocol: Document 02/22/23 14:34 HILLTOM (Rec: 02/22/23 14:48 MARTÍN [id number]) Dysphagia Assess/Goals/Plan Assessment Date of Evaluation: 02/22/23 Evaluation Type Initial Certification Assessment/Problems post extubation protocol per MD order Does Patient Qualify for Service Yes Qualify/Failure Comment Based on clinical observations made during the bedside swallow evaluation, the oropharyngeal phase of the swallow appears to be WFL. [employer] will f/u x1 for diet texture analysis and diet tolerance. No further skilled speech therapy services are warranted at this time. Recommendations PHYSICIAN CERTIFICATION: The specified therapy services are required, authorized, and reviewed every 30 days. Pt will be seen # times/week 1 for # weeks 1 Diet Recommendations Mechanical Soft Liquid Type Recommendations Normal/Thin SL Swallow Guidelines High aspiration risk Dysphagia Swallow Precautions/Strategies Sitting Upright (90 deg),Chin Tuck,Double Swallow,No Straw, Small Bites and Sips,Alternate Liquids/Solids Place Food on Either side of Mouth Plan Pt/Guardian verbally ack understanding Yes of dx/prognosis/goals G -code Required No Education Instructions provided [employer] discussed CSE results, diet recommendations, and aspiration risks and precautions with pt/family and nursing all of which expressed understanding. Pt/Caregiver able to recall information Able to recall/restate Reinforcement needed No Speech & Language HPI History Present Illness Description of Patient Problem [employer] pulled following information from ER documentation dated 02/18/23, Ms. Maggie Azevedo is a 67 year old female with a past medical history of chronic back pain, obesity, hypertension, hyperlipidemia and anxiety. The patient is currently intubated and sedated on propofol; history was obtained
--- NOTE | 2023-02-22 16:05 | PC.NURSE ---
[id number] Cox face to face that pt has been tachycardic and hypertensive thus far this shift. pt takes lisinopril, metoprolol and amlodipine at home. per dr cox, reorder pt metoprolol and amlodipine.
--- NOTE | 2023-02-22 17:22 | PC.NURSE ---
pt has appeared to rest comfortably in her room with multiple family member at bedside. pt was able to get up to the chair with assist x 2 from staff. pt tolerated the chair for approx 1 hour then returned to bed. pt o2 was increased to vapotherm. it is noted that pt breaths from her mouth quite frequently, when she does this her o2 sats decrease pt has been reminded to breath through her nose. when she does this her o2 increases/maintains 88-89. nad noted pt is tachypneic.
--- NOTE | 2023-02-22 17:40 | EXP.PN ---
Subjective *Date: 02/22/23 *Time: 17:40 Interval history: The patient was extubated yesterday. She says she feels better compared to this morning and that she has less dyspnea. She denies pain and asks for melatonin to help her sleep tonight. Exam Data for Last 24 hours Vital signs and Labs for Last 24 Hours: Temp Pulse Resp BP Pulse Ox O2 Del Method O2 Flow Rate 98.3 F 107 H 28 H 162/83 H 87 L Vapotherm 35 02/22/23 16:00 02/22/23 17:00 02/22/23 17:00 02/22/23 17:00 02/22/23 17:00 02/22/23 17:00 02/22/23 17:00 FiO2 60 02/22/23 17:00 Laboratory Results - last 24 hr 02/21/23 18:43: POC Glucose 96 02/22/23 06:50: POC Glucose 97 02/22/23 06:56: WBC 11.7 H, RBC 5.06, Hgb 12.9, Hct 41.0, MCV 80.9 L, MCH 25.5 L, MCHC 31.4 L, RDW 16.2, Plt Count 209, MPV 8.9, Neut % (Auto) 74.5, Lymph % (Auto) 15.7, [place] % (Auto) 7.2, Eos % (Auto) 2.2, Baso % (Auto) 0.3, Neut # (Auto) 8.7 H, Lymph # (Auto) 1.8, [place] # (Auto) 0.8, Eos # (Auto) 0.3, Baso # (Auto) 0.0, Sodium 144, Potassium 3.1 L, Chloride 102, Carbon Dioxide 30, Anion Gap 15.1 H, BUN 18 H, Creatinine 0.60, Estimated Creat Clear 85, Estimated GFR 100, Est GFR ( Amer) 121, Glucose 102 H, Calcium 8.7, Magnesium 1.9, Total Bilirubin 0.8, AST 121 H, ALT 33, Alkaline Phosphatase 110, Total Protein 7.4, Albumin 3.4 L D, Globulin 4.0 H, Albumin/Globulin Ratio 0.9 L 02/22/23 12:24: Specimen Source Left radial, O2 % 15 lpm 50%vm, ABG pH 7.47 H, ABG pCO2 40.2, ABG pO2 49.2 L, ABG HCO3 28.7 H, ABG Total CO2 29.9 H, ABG O2 Saturation 86 L*, ABG Base Excess 5.0 H, Sonu Test Acceptable I & O for Last 24 hours: Intake & Output 02/19/23 02/20/23 02/21/23 02/22/23 23:59 23:59 23:59 23:59 Intake Total 3592.1 / 3592.1 819.8 / 967.8 2058 0 / 0 Output Total 1095 / 1095 3340 / 3415 2195 / 2255 805 / 805 Balance 2497.1 / 2497.1 -2520.2 / -2447.2 -136 / -196 -805 / -805 Weight 95.39 kg 93.44 kg 95.821 kg Microbiology Reports for the Last 24 Hours: Microbiology 02/19/23 11:07 Bronchial Washings - Right Middle Lobe - Final 02/19/23 11:07 Bronchial Washings - Right Middle Lobe Acid Fast Bacilli Smear - Final Constitutional Constitutional: no acute distress *Routine HEENT Exam Head: Present normocephalic Eye: Present EOMI and PERRL ENT: Present mucous membranes moist *Routine Neck Exam Neck: Present supple; Absent lymphadenopathy Routine Chest/Breast/Axilla Exam Comments: intubated *Routine Respiratory Exam Respiratory: Present CTA bilaterally and symmetric chest movement *Routine Cardiovascular Exam Cardiovascular: Present RRR and tachycardia; Absent murmur *Routine Abdominal Exam Abdominal: Present soft and normoactive bowel sounds; Absent tenderness *Routine Extremities Exam Extremities: Absent cyanosis, clubbing or edema *Routine Skin Exam Skin: Present warm; Absent rash *Routine Neurological Exam Neurological: Present alert and moving all extremities Assessment and Plan *Assessment and plan (1) Chronic low back pain: Status: Chronic Qualifiers: Back pain laterality: bilateral Sciatica presence: without sciatica Qualified Code(s): M54.5 - Low back pain; G89.29 - Other chronic pain Category: Medical Code(s): M54.5 - Low back pain; G89.29 - Other chronic pain (2) Anxiety and depression: Status: Chronic Category: Medical Code(s): F41.9 - Anxiety disorder, unspecified; F32.9 - Major depressive disorder, single episode, unspecified (3) Acute encephalopathy: Status: Acute Category: Medical Code(s): G93.40 - Encephalopathy, unspecified (4) Drug overdose of undetermined intent: Status: Acute Category: Medical Code(s): T50.904A - Poisoning by unspecified drugs, medicaments and biological substances, undetermined, initial encounter (5) Respiratory failure: Status: Acute Category: Medical Code(s): J96.90 - Respiratory failure, unspecifi
[2023-02-23] VITALS (13 sets, daily range): BP systolic 137–176; BP diastolic 84–107; PULSE 83–109; RESP 20–30; TEMP 36.3–36.7; O2SAT 90–98; BMI 30.7
--- NOTE | 2023-02-23 05:16 | PC.NURSE ---
NO ACUTE CHANGES THIS SHIFT. REMAINS ON VAPOTHERM AT 35/90 AND IS TOLERATING WELL. HAS BEEN MEDICATED FOR PAIN X1 BY THIS RN. PT HAS BEEN MORE ALERT THIS SHIFT. POISON CONTROL CALL FOR AN UPDATE ON PATIENT AT ABOUT 0200. VSS.
--- NOTE | 2023-02-23 07:00 | XR_ITS ---
PROCEDURE INFORMATION: Exam: XR Chest Exam date and time: 02/23/2023 6:47 AM Age: 67 years old Clinical indication: Shortness of breath; Patient HX: Hypoxia, resp failure; Additional info: Hypoxic respiratory failure TECHNIQUE: Imaging protocol: Radiologic exam of the chest. Views: 1 view. COMPARISON: CR XR CHEST PORTABLE 02/22/2023 12:40 PM FINDINGS: Lungs: Mild left lung opacity likely representing atelectasis or infection is stable. Pleural spaces: Moderate right pleural effusion is worse since the prior study. Underlying opacity likely representing or infection shows worsening since the prior study. Heart/Mediastinum: Mild cardiomegaly is seen. Bones/joints: Unremarkable. IMPRESSION: 1. Moderate right pleural effusion is worse since the prior study. Underlying opacity or infection show worsening since the prior study. 2. Mild left lung opacity likely representing atelectasis or infection is stable. 3. Mild cardiomegaly.
[2023-02-23 07:19] LABS: Anion Gap 16.8 mEq/L (5-15); Blood Urea Nitrogen 22 mg/dl (7-17); Calcium 9.2 mg/dl (8.4-10.2); Carbon Dioxide 30 mmol/L (22.0-30.0); Chloride 102 mmol/L (98-107); Creatinine Clearance Estimated 81 mL/min (50-200); Estimated Glomerular Filt Rate 100 ml/min (>60); GFR (African American) 121 ML/MIN (>60); Glucose 106 mg/dl (74-100); Magnesium 2.1 mg/dl (1.6-2.3); Potassium 3.8 mmoL/L (3.5-5.1); Sodium 145 mmol/L (136-145)
[2023-02-23 07:50] LABS: Basophils # 0.1 K/mm3 (0-0.2); Basophils % 0.6 % (0.1-2.0); Eosinophils # 0.4 K/mm3 (0.0-0.4); Eosinophils % 4.6 % (0.1-12.0); Hematocrit 46.3 % (37.0-47.0); Lymphocytes # 1.7 K/mm3 (0.7-4.5); Lymphocytes % 20.9 % (10-50); Mean Corpuscular HGB Conc 30.9 g/dL (31.8-35.4); Mean Corpuscular Hemoglobin 25.5 pg (27.0-31.2); Mean Corpuscular Volume 82.7 fl (81-99); Mean Platelet Volume 8.8 fl (7.4-10.4); Monocytes # 0.7 K/mm3 (0.1-1.0); Monocytes % 9.2 % (1.7-9.3); Neutrophils # 5.2 K/mm3 (1.8-7.8); Neutrophils % 64.7 % (37.0-80.0); Platelet Count 213 K/mm3 (142-424)
[2023-02-23 07:57] LABS: Hemoglobin 14.6 g/dL (12.2-16.2)
--- NOTE | 2023-02-23 08:13 | EXP.PN ---
Subjective *Date: 02/23/23 *Time: 09:03 Interval history: The patient slept well last night She denies worsening shortness of breath She denies chest pain Exam Data for Last 24 hours Vital signs and Labs for Last 24 Hours: Temp Pulse Resp BP Pulse Ox O2 Del Method O2 Flow Rate 97.3 F L 91 H 20 176/104 H 92 L Vapotherm 35 02/23/23 07:51 02/23/23 06:16 02/23/23 06:00 02/23/23 06:00 02/23/23 06:16 02/23/23 07:44 02/23/23 06:39 FiO2 90 02/23/23 06:16 Laboratory Results - last 24 hr 02/22/23 06:56: WBC 11.7 H, RBC 5.06, Hgb 12.9, Hct 41.0, MCV 80.9 L, MCH 25.5 L, MCHC 31.4 L, RDW 16.2, Plt Count 209, MPV 8.9, Neut % (Auto) 74.5, Lymph % (Auto) 15.7, [place] % (Auto) 7.2, Eos % (Auto) 2.2, Baso % (Auto) 0.3, Neut # (Auto) 8.7 H, Lymph # (Auto) 1.8, [place] # (Auto) 0.8, Eos # (Auto) 0.3, Baso # (Auto) 0.0, Sodium 144, Potassium 3.1 L, Chloride 102, Carbon Dioxide 30, Anion Gap 15.1 H, BUN 18 H, Creatinine 0.60, Estimated Creat Clear 85, Estimated GFR 100, Est GFR ( Amer) 121, Glucose 102 H, Calcium 8.7, Magnesium 1.9, Total Bilirubin 0.8, AST 121 H, ALT 33, Alkaline Phosphatase 110, Total Protein 7.4, Albumin 3.4 L D, Globulin 4.0 H, Albumin/Globulin Ratio 0.9 L 02/22/23 12:24: Specimen Source Left radial, O2 % 15 lpm 50%vm, ABG pH 7.47 H, ABG pCO2 40.2, ABG pO2 49.2 L, ABG HCO3 28.7 H, ABG Total CO2 29.9 H, ABG O2 Saturation 86 L*, ABG Base Excess 5.0 H, Sonu Test Acceptable 02/23/23 06:46: WBC 8.0 D, RBC 5.60 H, Hgb 14.6 D, Hct 46.3, MCV 82.7, MCH 25.5 L, MCHC 30.9 L, RDW 16.0, Plt Count 213, MPV 8.8, Neut % (Auto) 64.7, Lymph % (Auto) 20.9, [place] % (Auto) 9.2, Eos % (Auto) 4.6, Baso % (Auto) 0.6, Neut # (Auto) 5.2, Lymph # (Auto) 1.7, [place] # (Auto) 0.7, Eos # (Auto) 0.4, Baso # (Auto) 0.1, Sodium 145, Potassium 3.8 D, Chloride 102, Carbon Dioxide 30, Anion Gap 16.8 H, BUN 22 H, Creatinine 0.60, Estimated Creat Clear 81, Estimated GFR 100, Est GFR ( Amer) 121, Glucose 106 H, Calcium 9.2, Magnesium 2.1 D I & O for Last 24 hours: Intake & Output 02/20/23 02/21/23 02/22/23 02/23/23 23:59 23:59 23:59 23:59 Intake Total 819.8 / 967.8 2059 / 2059 240 / 360 120 / 120 Output Total 3340 / 3415 2195 / 2255 1105 / 1205 175 / 175 Balance -2520.2 / -2447.2 -136 / -196 -865 / -845 -55 / -55 Weight 95.39 kg 93.44 kg 95.821 kg 91.852 kg Constitutional Constitutional: no acute distress *Routine HEENT Exam Head: Present normocephalic Eye: Present EOMI and PERRL ENT: Present mucous membranes moist *Routine Neck Exam Neck: Present supple; Absent lymphadenopathy Routine Chest/Breast/Axilla Exam Comments: intubated *Routine Respiratory Exam Respiratory: Present crackles (bibasilar) and symmetric chest movement *Routine Cardiovascular Exam Cardiovascular: Present RRR and tachycardia; Absent murmur *Routine Abdominal Exam Abdominal: Present soft and normoactive bowel sounds; Absent tenderness *Routine Extremities Exam Extremities: Absent cyanosis, clubbing or edema *Routine Skin Exam Skin: Present warm; Absent rash *Routine Neurological Exam Neurological: Present alert and moving all extremities Assessment and Plan *Assessment and plan (1) Chronic low back pain: Status: Chronic Qualifiers: Back pain laterality: bilateral Sciatica presence: without sciatica Qualified Code(s): M54.5 - Low back pain; G89.29 - Other chronic pain Category: Medical Code(s): M54.5 - Low back pain; G89.29 - Other chronic pain (2) Anxiety and depression: Status: Chronic Category: Medical Code(s): F41.9 - Anxiety disorder, unspecified; F32.9 - Major depressive disorder, single episode, unspecified (3) Acute encephalopathy: Status: Acute Category: Medical Code(s): G93.40 - Encephalopathy, unspecified (4) Drug overdose of undetermined intent: Status: Acute Category: Medical Code(s): T50.904A - Poisoning by unspecified drugs, medicaments and bi
--- NOTE | 2023-02-23 08:56 | PC.NURSE ---
PT IS RESTING IN BED. ALERT AND ORIENTED X3. PT STATED SHE WANTED TO GO HOME AND HAD TO BE EDUCATED ABOUT HAVING TO BE WEANED OFF HIGH FLOW OXYGEN BEFORE WE COULD EVEN CONSIDER DISCHARGE. PT DID GET OOB TO [facility], WAS UNABLE TO HAVE BM. LUNG SOUNDS HAVE RHONCHI ANTERIORLY AND COARSE CRACKLES T/O POSTERIORLY. O2 SATURATION MAINTAINING 92-97% ON VAPOTHERM 35 L 90% FIO2. ABDOMEN SOFT/NON TENDER WITH ACTIVE BOWEL SOUNDS. WILL CONTINUE TO MONITOR.
[2023-02-23 09:04] LABS: ABG HCO3 30.7 mmhg (22.0-26.0); ABG Oxygen Saturation 92 % (90-100); ABG PCO2 43.7 mmhg (35.0-45.0); ABG PH 7.47 mmol/L (7.35-7.45); ABG PO2 61.1 mmhg (80-100); ABG TCO2 32.1 mmhg (23-27)
[2023-02-23 09:06] LABS: Allen's Test Acceptable; Source Right Radial
--- NOTE | 2023-02-23 09:36 | CT_ITS ---
PROCEDURE INFORMATION: Exam: CTA Chest With Contrast Exam date and time: 02/23/2023 10:14 AM Age: 67 years old Clinical indication: Shortness of breath; Patient HX: Hypoxia, resp failure TECHNIQUE: Imaging protocol: Computed tomographic angiography of the chest with contrast. Exam focused on the arteries. 3D rendering (Not supervised by radiologist): MIP and/or 3D reconstructed images were created by the technologist. Radiation optimization: All CT scans at this facility use at least one of these dose optimization techniques: automated exposure control; mA and/or kV adjustment per patient size (includes targeted exams where dose is matched to clinical indication); or iterative reconstruction. Contrast material: ISOVUE 370; Contrast volume: 70 ml; Contrast route: INTRAVENOUS (IV); REPORTING DATA: Count of CT and Cardiac NM exams in prior 12 months: This patient has received 2 known CTs and 0 known cardiac nuclear medicine studies in the 12 months prior to the current study. COMPARISON: CT ANGIO CHEST PE PROTOCOL 02/03/2022 4:54 PM FINDINGS: Pulmonary arteries: The main pulmonary artery at the level of the right pulmonary artery measures 2.9 cm. A large thrombus is noted in the right main pulmonary artery and the subsegmental branches involving upper and lower lobes. There is complete occlusion of the segmental and subsegmental branch supplying the right lower lobe. Aorta: The ascending aorta at the level of the right pulmonary artery measures 3 cm. Mild atherosclerotic calcifications affect the aorta and its branches. Lungs: Diffuse patchy and ground-glass opacities in the right upper lobe likely represent atelectasis or infection. Bibasilar opacities worse on the right may represent pulmonary infarct, infection, atelectasis. Pleural spaces: Unremarkable. No pneumothorax. No pleural effusion. Heart: Unremarkable. No cardiomegaly. No pericardial effusion. Mediastinal space: Mild distension of the upper and mid esophagus is seen. Lymph nodes: Mildly enlarged right paratracheal lymph node measuring 1.1 cm has increased in size since the prior study previously measuring 7 mm. Gallbladder and bile ducts: Cholecystectomy clips are seen. Bones/joints: There are mild degenerative changes present in the spine. Irregularity involving the midthoracic vertebrae spinous process may be postsurgical, stable since the prior study. Severe dextroscoliosis of the thoracic spine is seen. Soft tissues: Unremarkable. IMPRESSION: 1. Large thrombus in the right main pulmonary artery and the subsegmental branches involving upper and lower lobes. There is complete occlusion of the segmental and subsegmental branch supplying the right lower lobe. These findings likely represent acute pulmonary embolism. Mild heart strain. Heart RV to LV ratio is 1.2. 2. Diffuse patchy and ground-glass opacities in the right upper lobe likely represent atelectasis or infection. Bibasilar opacities worse on the right may represent pulmonary infarct, infection, atelectasis. 3. Mild distension of the upper and mid esophagus may be related to gastroesophageal reflux. 4. Mildly enlarged right paratracheal lymph node measuring 1.1 cm has increased in size since the prior study previously measuring 7 mm. 5. THIS REPORT CONTAINS FINDINGS THAT MAY BE CRITICAL TO PATIENT CARE. The findings were verbally communicated via telephone conference with Dr Cox at 9.51 AM CDT on 02/23/2023. The findings were acknowledged and understood.
--- NOTE | 2023-02-23 09:43 | HMH.ITSTN ---
SPOKE WITH NURSE KELLE WRIGHT ABOUT CT ORDERED, SHE STATED PATIENT HAD TO BE TRANSPORTED BY BED AND IS A STEP DOWN PATIENT, NURSING NEEDS TO COME DOWN TO MONITOR PATIENT. WILL CALL BACK WHEN PATIENT IS READY TO BE TRANSPORTED FOR CT.
--- NOTE | 2023-02-23 09:58 | DIET.NUTRFU ---
Patient extubated on 02/21 and [employer] accessed on 02/22 and diet started- MSOFT, thin with no straws. Will continue to monitor po intake
[2023-02-23 14:06] LABS: PTT Heparin (inpatient only) 50.7 Seconds (23.6-34.0)
--- NOTE | 2023-02-23 14:51 | P.CONPHA_ITS ---
[facility] Pharmacy Heparin Dosing Demographic Data Admission date:: 03/21/23 Date: 02/23/23 Time: 14:52 Allergies Allergy/AdvReac Type Severity Reaction Status Date / Time No Known Allergies Allergy Verified 11/07/22 14:27 Height: 1.73 m Weight: 91.852 kg Indication Medication therapy:: Heparin Current Indications:: PULMONARY EMBOLISM Current Active Problems (Updated 02/19/23 @ 09:21 by Salvatore Yang MD) Acute respiratory failure with hypoxia (Acute) On mechanically assisted ventilation (Acute) Respiratory failure (Acute) Drug overdose of undetermined intent (Acute) Acute encephalopathy (Acute) Chronic low back pain (Chronic) Anxiety and depression (Chronic) CVA?: No Bleeding problem?: No Kidney disease?: No HI?: No Desired PTT range:: 50-75 seconds Labs Anticoagulation Lab Results:: 02/23/23 06:46 Hgb 14.6 D Hct 46.3 Plt Count 213 Monitoring Dose Monitor 1: Date: 02/23/23 Time: 11:42 PTT Result:: 31.0 Infusion Rate:: HEPARIN BOLUS OF 7400 UNITS IV, HEPARIN INFUSION RATE OF 1650 UNITS/HR (33 ML/HR) Dose Monitor 2: Date: 02/23/23 Time: 17:10 PTT Result:: 47.4 Infusion Rate:: patient transferred out. Core Measures Is INR > or = 2 at discharge?: No Most Recent Labs:: Laboratory Results - last 24 hr 02/23/23 06:46: WBC 8.0 D, RBC 5.60 H, Hgb 14.6 D, Hct 46.3, MCV 82.7, MCH 25.5 L, MCHC 30.9 L, RDW 16.0, Plt Count 213, MPV 8.8, Neut % (Auto) 64.7, Lymph % (Auto) 20.9, [place] % (Auto) 9.2, Eos % (Auto) 4.6, Baso % (Auto) 0.6, Neut # (Auto) 5.2, Lymph # (Auto) 1.7, [place] # (Auto) 0.7, Eos # (Auto) 0.4, Baso # (Auto) 0.1, Sodium 145, Potassium 3.8 D, Chloride 102, Carbon Dioxide 30, Anion Gap 16.8 H, BUN 22 H, Creatinine 0.60, Estimated Creat Clear 81, Estimated GFR 100, Est GFR ( Amer) 121, Glucose 106 H, Calcium 9.2, Magnesium 2.1 D 02/23/23 08:17: Specimen Source Right radial, O2 % 90% vapo 35lpm, ABG pH 7.47 H, ABG pCO2 43.7, ABG pO2 61.1 L, ABG HCO3 30.7 H, ABG Total CO2 32.1 H, ABG O2 Saturation 92, ABG Base Excess 7.0 H, Sonu Test Acceptable 02/23/23 11:42: APTT 31.0 02/23/23 13:42: APTT 50.7 H* If INR was < than 2.0 why was therapy stopped?: transferred Were Heparin and Warfarin started on the same day?: No If not, why?: transferred
--- NOTE | 2023-02-23 15:12 | EXP.DC.SUM ---
General Admission date:: 02/18/23 HPI HPI HPI: Forwarded from Admission H&P: Ms. Maggie Azevedo is a 67 year old female with a past medical history of chronic back pain, obesity, hypertension, hyperlipidemia and anxiety. The patient is currently intubated and sedated on propofol; history was obtained from chart review and the patient's three daughters. The patient lives with her friend who last saw her to be her normal self earlier in the morning; within a couple of hours her friend found her unresponsive near multiple scattered pills and open pill bottles, including methadone, Klonopin, methocarbamol, buspar, metoprolol and furosemide. Initial vitals from the ED included BP 157/89 and Spo2 92% on room air. The patient was given narcan 1mg IV followed by 2mg with no appreciable effect; she developed tachypnea and was intubated in the ER to protect her airway. Per daughters, the patient has no history of suicidality but has been hospitalized a couple times in the past for accidental overdose. She often takes more medications than prescribed for her chronic pain. No recent change in medications except she was recently started on Buspar. Workup so far includes CBC with 14.5K wbcs, troponin <0.01, tsh 0.74, ua with no wbcs, uds +methadone, salicylates <1, acetaminophen <10, cxr with persistent bilateral pleural effusions with ettube 3.8cm above the karlo, and a head ct with an artifact superimposed upon the liliana. Hospital Course Hospital Course Hospital Course: The patient was given Zosyn later changed to cefepime and IV fluids. He was extubated on 02/21 to nasal cannula. He received IV lasix 40mg daily from 02/21 and despite diuresis her oxygen requirement gradually increased. A CTA Chest was ordered which revealed a large thrombus in the right main pulmonary artery and the subsegmental branches involving the upper and lower lobes; mild heart strain with RV to LV ratio 1.2; diffuse patchy and ground glass opacities in the right upper lobe likely atelectasis or infection; and bibasilar opacities worse on the right may represent pulmonary infarct, infection or atelectasis. She was hemodynamically stable. She was started on a heparin drip. Despite these findings on CT, on the day of transfer the patient did not feel short of breath although she was requiring HFNC 35LPMN/FIO2 100%. She denied chest pain. She was accepted to [facility] for a higher level of care. Near the time of transfer the patient's second peripheral IV stopped working so at the time of transfer she had only one operating peripheral IV. A dose of IM Rocephin 1g was administered shortly before she was transferred. A disc of the patient's images were sent with the patient. Exam Data for Last 24 hours Vital signs and Labs for Last 24 Hours: Temp Pulse Resp BP Pulse Ox O2 Del Method O2 Flow Rate 97.7 F 98 H 24 159/98 H 93 L Vapotherm 35 02/23/23 12:00 02/23/23 14:00 02/23/23 14:00 02/23/23 14:00 02/23/23 14:00 02/23/23 14:52 02/23/23 14:00 FiO2 100 02/23/23 12:07 Laboratory Results - last 24 hr 02/23/23 06:46: WBC 8.0 D, RBC 5.60 H, Hgb 14.6 D, Hct 46.3, MCV 82.7, MCH 25.5 L, MCHC 30.9 L, RDW 16.0, Plt Count 213, MPV 8.8, Neut % (Auto) 64.7, Lymph % (Auto) 20.9, [place] % (Auto) 9.2, Eos % (Auto) 4.6, Baso % (Auto) 0.6, Neut # (Auto) 5.2, Lymph # (Auto) 1.7, [place] # (Auto) 0.7, Eos # (Auto) 0.4, Baso # (Auto) 0.1, Sodium 145, Potassium 3.8 D, Chloride 102, Carbon Dioxide 30, Anion Gap 16.8 H, BUN 22 H, Creatinine 0.60, Estimated Creat Clear 81, Estimated GFR 100, Est GFR ( Amer) 121, Glucose 106 H, Calcium 9.2, Magnesium 2.1 D 02/23/23 08:17: Specimen Source Right radial, O2 % 90% vapo 35lpm, ABG pH 7.47 H, ABG pCO2 43.7, ABG pO2 61.1 L, ABG HCO3 30.7 H, ABG Total CO2 32.1 H, ABG O2 Saturation 92, ABG Base Excess 7.0 H, Sonu Test Acceptable 02/23/23 11:42: APTT 31.0 02/23/23 13:42: APTT 50.7 H* I & O for Last 24 hours: Intake & Output 02/20/23 02/21/23
--- NOTE | 2023-02-23 16:20 | PC.NURSE ---
PT IS BEING TRANSFERRED TO [facility]. REPORT HAS BEEN CALLED. AMBULANCE NOTIFIED ABOUT TRANSFER. PT WILL BE TRANSPORTED ON THE HEPARIN DRIP AT 1,750 UNITS/HR.
[2023-02-23 17:32] LABS: PTT Heparin (inpatient only) 47.4 Seconds (23.6-34.0)
== END 2023-02-23 17:21 | disposition short-term general hospital (02) | DRG 917 ==
LOC: ER 16:35 → 2ND 17:35
PROVIDERS: Internal Medicine; Internal Medicine Pulmonary Disease; Admitting Provider Internal Medicine Adolescent Medicine; Emergency Provider Emergency Medicine; PCP Physician Assistant; Visit Provider Internal Medicine Adolescent Medicine
PROC: 0B9D8ZX Drainage of Right Middle Lung Lobe, Via Natural or Artificial Opening Endoscopic, Diagnostic (ICD-10-PCS; principal; 2023-02-19 10:50)
DX: T65.91XA Toxic effect of unspecified substance, accidental (unintentional), initial encounter (principal); J96.20 Acute and chronic respiratory failure, unspecified whether with hypoxia or hypercapnia; G93.40 Encephalopathy, unspecified; G89.29 Other chronic pain; F41.9 Anxiety disorder, unspecified; F32.A Depression, unspecified; E66.9 Obesity, unspecified; I10 Essential (primary) hypertension; E78.5 Hyperlipidemia, unspecified; J44.9 Chronic obstructive pulmonary disease, unspecified
CPT/HCPCS: 31624; 31500; 94002; 36415; 70450; 71045; 71275; 80048; 80053; 80305; 80329; 81001; 82553; 82803; 82962; 83735; 83880; 84100; 84443; 84484; 85007; 85025; 85610; 85730; 87040; 87070; 87077; 87102; 87116; 87186; 87205; 87206; 89051; 92610; 93005; 94003; 94640; 94760; 94761; 99291; C1751; J0696; J2310; J2543; J2704; J3473; Q9967

== ENCOUNTER → 2023-04-10 10:52 | Outpatient (CLI) | payer MEDICARE, SELFPAY ==
--- NOTE | 2023-04-10 10:55 | CA_ITS ---
APPROVED REPORT EXAM: Comprehensive 2D, Doppler, and color-flow Echocardiogram Information Tech: Sunitha Pop CRT Ht: 5 ft 9 in Wt: 198lbs BSA: 2.06 BP: 127/80 mmHg Indications: COPD, Shortness of Breath, Hypertension/HDD, PE, recent intubation, limited images, cad Echo Enhancing Agent Comments: Technically limited exam due to patient Apneaand movement thoughout exam 2D Dimensions LVOT 1.94 cm (M/F) 1.5-2.5 M-Mode Dimensions RVDd 1.74 cm (0.9-2.6) LA Diam 2.95 cm (1.9-4.0) LVDd 3.71 cm (3.5-5.7) Ao Diam 3.64 cm (2.0-3.7) LVDs 2.87 cm (3.5-5.7) IVSd 0.93 cm (0.6-1.1) PWd 0.78 cm (0.6-1.1) EF (Teich) 46.30% FS 22.60% EDV (Teich) 58.50 mL TAPSE 1.54 (<1.7) ESV (Teich) 31.40 mL LV Diastology MED E' 5.50 (< 7 cm/sec) MED A' 9.70 cm/s LAT E' 7.60 (<10 cm/sec) LAT A' 12.40 cm/s Aortic Valve LVOT Max 91.00 (70-110 cm/s) LVOT VTI 14.51 cm AoV Peak Roly. 109.00 (50-130 cm/s) AO Peak GR. 4.70 mmHg AO Mean GR. 2.30 (<5 mmHg) AO VTI 18.16 (18-25 cm) [place]EL[place] (VTI) 2.36 (2.5-4.5 cm2) Pulmonary Valve PV Peak Velocity 88.00 (50-150 cm/s) Tricuspid Valve TR P. Velocity 163.00 cm/s RAP Estimate 10.00 mmHg RVSP 20.60 mmHg Left Ventricle The left ventricle is normal size. The left ventricular systolic function is normal. The left ventricular ejection fraction is within the normal range. There is increased LV wall thickness. Estimation of regional wall motion abnormalities is difficult due to poor visualization. Transmitral Doppler flow pattern suggests impaired LV relaxation. LVEF is 55-60%. Right Ventricle The right ventricle size and function cannot be estimated due to poor visualization. Atria The left atrium size is normal. The right atrium is not well visualized. The interatrial septum is not well visualized. Aortic Valve The aortic valve grossly opens well. There is no aortic valvular stenosis. No aortic regurgitation is present. Mitral Valve The mitral valve leaflets grossly open well. No evidence of mitral valve stenosis. There is no mitral valve regurgitation noted. Tricuspid Valve The tricuspid valve leaflets are thin and pliable. Trace tricuspid regurgitation. There is insufficient TR jet to estimate RVSP. Pulmonic Valve The pulmonic valve leaflets are not well visualized. Great Vessels The aortic root is normal in size. The ascending aorta is normal in size. The IVC is not well visualized. Pericardium There is no pericardial effusion. Other Information Study Quality: Technically Difficult. Technically limited study due to lung disease. Conclusion Technically difficult study due to poor acoustic windows. Grossly, normal LV systolic function. The right atrium and right ventricle is not well visualized. No significant valvular stenosis or regurgitation of the visualized valves. Electronically signed by : Erica Newman MD 04/12/2023 22:02:24
== END ==
PROVIDERS: PCP Physician Assistant; Visit Provider Internal Medicine
DX: G89.29 Other chronic pain (principal); I25.10 Atherosclerotic heart disease of native coronary artery without angina pectoris; I26.99 Other pulmonary embolism without acute cor pulmonale; I51.89 Other ill-defined heart diseases; R06.09 Other forms of dyspnea; M54.50 Low back pain, unspecified
CPT/HCPCS: 93306

== ENCOUNTER 2023-04-12 15:33 | Emergency (ER) | payer OTHER, MEDICARE, SELFPAY ==
[2023-04-12] VITALS (7 sets, daily range): BP systolic 116–137; BP diastolic 66–92; PULSE 85–96; RESP 17–20; TEMP 36.4–36.7; O2SAT 92–97; BMI 29.2
--- NOTE | 2023-04-12 15:35 | PC.NURSE ---
dr. jha at BS
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
--- NOTE | 2023-04-12 15:53 | ECG_ITS ---
APPROVED REPORT Exam: Resting ECG HR:91 bpm ECG Measurements Heart Rate 91 AXES MN 154 P 50 QRSd 81 QRS -7 QT 393 T 11 QTc 442 Conclusion SINUS RHYTHM VOLTAGE CRITERIA FOR LVH [MEETS CRITERIA IN ONE OF: R(aVL), S(V1), R(V5), R(V5/V6)+S(V1)] INFERIOR MYOCARDIAL INFARCTION , PROBABLY OLD [40+ ms Q WAVE AND/OR ST/T ABNORMALITY IN II/aVF] ANTEROLATERAL MYOCARDIAL INFARCTION , OF INDETERMINATE AGE [40+ ms Q WAVE IN I/aVL/V3-V6] ABNORMAL ECG UNCONFIRMED REPORT Electronically signed by : Jevon Donahue MD 04/14/2023 08:33:42
--- NOTE | 2023-04-12 16:07 | PC.NURSE ---
Pt gone to RAD via stretcher
[2023-04-12 16:09] LABS: Alanine Aminotransferase 34 U/L (12-78); Albumin Level 3.8 g/dl (3.5-5.0); Albumin/Globulin Ratio 1.1 (1.1-1.8); Alkaline Phosphatase 105 U/L (38-126); Anion Gap 13.9 mEq/L (5-15); Aspartate Amino Transferase 42 U/L (14-36); Bilirubin,Total 0.2 mg/dl (0.2-1.3); Blood Urea Nitrogen 9 mg/dl (7-17); Calcium 8.8 mg/dl (8.4-10.2); Carbon Dioxide 27 mmol/L (22.0-30.0); Chloride 109 mmol/L (98-107); Creatinine Clearance Estimated 77 mL/min (50-200); Estimated Glomerular Filt Rate 72 ml/min (>60); GFR (African American) 87 ML/MIN (>60); Globulin 3.5 g/dL (1.3-3.2); Glucose 144 mg/dl (74-100); Potassium 3.9 mmoL/L (3.5-5.1); Sodium 146 mmol/L (136-145); Total Protein,Serum 7.3 g/dl (6.3-8.2)
[2023-04-12 16:11] LABS: Basophils # 0.1 K/mm3 (0-0.2); Basophils % 0.5 % (0.1-2.0); Eosinophils # 0.2 K/mm3 (0.0-0.4); Hematocrit 43.6 % (37.0-47.0); Lymphocytes % 19.2 % (10-50); Mean Corpuscular HGB Conc 32.2 g/dL (31.8-35.4); Mean Corpuscular Hemoglobin 27.5 pg (27.0-31.2); Mean Corpuscular Volume 85.4 fl (81-99); Mean Platelet Volume 8.7 fl (7.4-10.4); Monocytes # 0.6 K/mm3 (0.1-1.0); Monocytes % 5.5 % (1.7-9.3); Neutrophils # 7.6 K/mm3 (1.8-7.8); Neutrophils % 72.7 % (37.0-80.0); Platelet Count 184 K/mm3 (142-424); White Blood Count 10.5 K/mm3 (4.8-10.8)
[2023-04-12 16:21] LABS: Troponin I < 0.01 ng/ml (0.00-0.034)
--- NOTE | 2023-04-12 16:45 | PC.NURSE ---
Pt returned from RAD
--- NOTE | 2023-04-12 17:11 | PC.NURSE ---
Rounded on pt. Advised she she was hurting. notified.
--- NOTE | 2023-04-12 17:40 | PC.NURSE ---
Pt ambulatory to bathroom and back to bed. He advised that after his nitro his pain increased and then decreased. And is about a 12/30 Dr. Paez notified.
--- NOTE | 2023-04-12 18:07 | PC.NURSE ---
Pt complains that she is still in pain. Dr. Paez notified.
--- NOTE | 2023-04-12 18:12 | PC.NURSE ---
Dr. Paez at BS to update pt on results
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
--- NOTE | 2023-04-12 19:10 | PC.NURSE ---
Pt ambulated with no problems
== END 2023-04-12 19:12 | disposition home or self-care (01) ==
PROVIDERS: Emergency Provider Emergency Medicine; PCP Family Medicine
DX: R07.89 Other chest pain (principal); J44.9 Chronic obstructive pulmonary disease, unspecified; M41.9 Scoliosis, unspecified; I25.10 Atherosclerotic heart disease of native coronary artery without angina pectoris; I11.9 Hypertensive heart disease without heart failure; F41.9 Anxiety disorder, unspecified; F32.A Depression, unspecified; Z86.711 Personal history of pulmonary embolism; Z79.01 Long term (current) use of anticoagulants; Z87.891 Personal history of nicotine dependence; V47.5XXA Car driver injured in collision with fixed or stationary object in traffic accident, initial encounter; Y92.410 Unspecified street and highway as the place of occurrence of the external cause
CPT/HCPCS: 70450; 71275; 72125; 72128; 72131; 73562; 73590; 74174; 80053; 84484; 85025; 93005; 96374; 96375; 96376; 99285; J0131; Q9967

== ENCOUNTER 2023-04-18 17:18 | Emergency (ER) | payer MEDICARE, SELFPAY ==
[2023-04-18 17:00] VITALS: PULSE 102
--- NOTE | 2023-04-18 17:06 | ECG_ITS ---
APPROVED REPORT Exam: Resting ECG HR:106 bpm ECG Measurements Heart Rate 106 AXES HI 160 P 31 QRSd 90 QRS -19 QT 375 T 42 QTc 437 Conclusion SINUS TACHYCARDIA MODERATE VOLTAGE CRITERIA FOR LVH, CONSIDER NORMAL VARIANT [MEETS CRITERIA IN ONE OF: R(aVL), S(V1), R(V5), R(V5/V6)+S(V1)] INFERIOR MYOCARDIAL INFARCTION , PROBABLY OLD [40+ ms Q WAVE AND/OR ST/T ABNORMALITY IN II/aVF] ANTEROLATERAL MYOCARDIAL INFARCTION , PROBABLY OLD [40+ ms Q WAVE IN I/aVL/V3-V6] ABNORMAL ECG UNCONFIRMED REPORT Electronically signed by : Jevon Donahue MD 04/19/2023 18:59:05
[2023-04-18 17:18] VITALS: BP 124/74; PULSE 95; RESP 36; TEMP 36.6; O2SAT 91; BMI 30.4
--- NOTE | 2023-04-18 17:35 | XR_ITS ---
PROCEDURE INFORMATION: Exam: XR Chest Exam date and time: 04/18/2023 6:06 PM Age: 67 years old Clinical indication: Pain; Chest pressure; Additional info: Chest pain TECHNIQUE: Imaging protocol: Radiologic exam of the chest. Views: 1 view. COMPARISON: CR XR CHEST PORTABLE 02/23/2023 6:47 AM FINDINGS: Lungs: Subsegmental atelectasis in the right perihilar region and left lung base. Lungs are otherwise clear. Pleural spaces: Unremarkable. No pleural effusion. No pneumothorax. Heart/Mediastinum: Unremarkable. No cardiomegaly. Bones/joints: Stable significant thoracic dextroscoliosis with multilevel degenerative disc changes.. No acute fracture. Orthopedic hardware noted in the cervical spine. IMPRESSION: No acute disease
[2023-04-18 17:42] LABS: Basophils # 0.1 K/mm3 (0-0.2); Basophils % 0.7 % (0.1-2.0); Eosinophils # 0.4 K/mm3 (0.0-0.4); Eosinophils % 3.2 % (0.1-12.0); Hematocrit 49.6 % (37.0-47.0); Hemoglobin 16.3 g/dL (12.2-16.2); Lymphocytes # 2.7 K/mm3 (0.7-4.5); Lymphocytes % 24.7 % (10-50); Mean Platelet Volume 8.8 fl (7.4-10.4); Monocytes # 0.6 K/mm3 (0.1-1.0); Monocytes % 5.1 % (1.7-9.3); Neutrophils # 7.3 K/mm3 (1.8-7.8); Neutrophils % 66.3 % (37.0-80.0); Platelet Count 273 K/mm3 (142-424); Red Blood Count 5.83 M/mm3 (4.20-5.40); Red Cell Distribution Width 16.4 % (11.5-17.5); White Blood Count 11.1 K/mm3 (4.8-10.8)
[2023-04-18 17:43] LABS: Chloride 110 mmol/L (98-107)
[2023-04-18 17:44] LABS: Potassium 3.9 mmoL/L (3.5-5.1); Sodium 149 mmol/L (136-145)
[2023-04-18 17:46] LABS: Alanine Aminotransferase 62 U/L (12-78); Alkaline Phosphatase 132 U/L (38-126); Anion Gap 14.9 mEq/L (5-15); Aspartate Amino Transferase 58 U/L (14-36); Bilirubin,Total 0.6 mg/dl (0.2-1.3); Blood Urea Nitrogen 6 mg/dl (7-17); Carbon Dioxide 28 mmol/L (22.0-30.0); Creatinine Clearance Estimated 80 mL/min (50-200); Estimated Glomerular Filt Rate 84 ml/min (>60); GFR (African American) 102 ML/MIN (>60)
[2023-04-18 17:47] LABS: Albumin Level 4.5 g/dl (3.5-5.0); Calcium 9.4 mg/dl (8.4-10.2); Globulin 4.4 g/dL (1.3-3.2); Glucose 148 mg/dl (74-100); Total Protein,Serum 8.9 g/dl (6.3-8.2)
[2023-04-18 17:59] LABS: Troponin I < 0.01 ng/ml (0.00-0.034)
[2023-04-18 18:01] VITALS: BP 139/101; PULSE 103; RESP 49; O2SAT 93
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
[2023-04-18 18:26] LABS: D-Dimer 1.87 ug/mL (0.0-0.5)
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
[2023-04-18 19:00] VITALS: BP 129/79; PULSE 92; O2SAT 92
--- NOTE | 2023-04-18 19:25 | PC.NURSE ---
Report received, pt in CT
--- NOTE | 2023-04-18 19:35 | PC.NURSE ---
pt back from CT, continues to report left chest pain 04/01, states Toradol didn't help. Provider aware, no orders noted
[2023-04-18 20:56] LABS: Troponin I < 0.01 ng/ml (0.00-0.034)
[2023-04-18 21:07] VITALS: BP 129/79; PULSE 90; RESP 22; TEMP 36.6; O2SAT 96
== END 2023-04-18 21:15 | disposition home or self-care (01) ==
PROVIDERS: Emergency Provider Student in an Organized Health Care Education/Training Program; PCP Physician Assistant
DX: R07.89 Other chest pain (principal); R00.0 Tachycardia, unspecified; J44.9 Chronic obstructive pulmonary disease, unspecified; I25.10 Atherosclerotic heart disease of native coronary artery without angina pectoris; I11.9 Hypertensive heart disease without heart failure; Z87.891 Personal history of nicotine dependence
CPT/HCPCS: 36415; 71045; 71275; 80053; 84484; 85025; 85378; 93005; 96374; 96375; 99285; J0131; Q9967

== ENCOUNTER 2024-02-20 10:29 | Outpatient (CLI) | payer MEDICARE, MEDICAID, SELFPAY ==
--- NOTE | 2024-02-20 10:34 | XR_ITS ---
FINAL REPORT CLINICAL HISTORY: M47.816 SPONDYLOSIS W/O MYELOPATHY OR RADICULOPATHY, LUMBAR FINDINGS: LUMBAR SPINE 5 views were obtained. There is no acute fracture. There is moderate lumbar scoliosis convex to the right. An infusion pump is noted. There is vacuum disc phenomenon at L4-5 and L5-S1. There is 70% loss of height of the anterior aspect of L2. There are postoperative changes from prior kyphoplasty of L1. Gas and stool is seen throughout the colon. IMPRESSION: Kyphoplasty at L1. 70% compression of the anterior aspect of L2. Vacuum disc phenomenon at L4-5 and L5-S1. Reviewed, Interpreted and Dictated by Chele Lloyd MD Transcribed by Marion Hunter Authenticated and [facility]
== END 2024-02-20 23:59 | disposition home or self-care (01) ==
LOC: RAD 10:30
PROVIDERS: PCP Physician Assistant; Visit Provider Pain Medicine Interventional Pain Medicine
DX: M47.816 Spondylosis without myelopathy or radiculopathy, lumbar region (principal)
CPT/HCPCS: 72110

== ENCOUNTER 2024-03-05 11:03 | Outpatient (CLI) | payer MEDICARE, MEDICAID, SELFPAY ==
[2024-03-05 18:31] LABS: Basophils # 0.1 K/mm3 (0-0.2); Basophils % 0.7 % (0.1-2.0); Eosinophils # 0.2 K/mm3 (0.0-0.4); Eosinophils % 2.3 % (0.1-12.0); Hemoglobin 14.6 g/dL (12.2-16.2); Lymphocytes # 2.4 K/mm3 (0.7-4.5); Lymphocytes % 34.2 % (10-50); Mean Corpuscular HGB Conc 30.5 g/dL (31.8-35.4); Mean Corpuscular Hemoglobin 29.2 pg (27.0-31.2); Mean Corpuscular Volume 95.8 fl (81-99); Mean Platelet Volume 11.1 fl (7.4-10.4); Monocytes # 0.5 K/mm3 (0.1-1.0); Monocytes % 7.8 % (1.7-9.3); Neutrophils # 3.8 K/mm3 (1.8-7.8); Neutrophils % 54.9 % (37.0-80.0); Platelet Count 175 K/mm3 (142-424); Red Blood Count 5.01 M/mm3 (4.20-5.40); Red Cell Distribution Width 14.6 % (11.5-17.5)
[2024-03-05 18:54] LABS: Alanine Aminotransferase 17 U/L (12-78); Albumin Level 3.5 g/dl (3.5-5.0); Alkaline Phosphatase 87 U/L (38-126); Anion Gap 9.7 mEq/L (5-15); Aspartate Amino Transferase 24 U/L (14-36); Bilirubin,Total 0.6 mg/dl (0.2-1.3); Blood Urea Nitrogen 11 mg/dl (7-17); Calcium 9.2 mg/dl (8.4-10.2); Carbon Dioxide 28 mmol/L (22.0-30.0); Chloride 109 mmol/L (98-107); Chol/HDL Ratio 4.7 (1-3.5); Cholesterol 194 mg/dl (140-200); Estimated Glomerular Filt Rate 84 ml/min (>60); GFR (African American) 101 ML/MIN (>60); Globulin 3.4 g/dL (1.3-3.2); Glucose 117 mg/dl (74-100); HDL Cholesterol 41 mg/dl (40-60); Potassium 3.7 mmoL/L (3.5-5.1); Sodium 143 mmol/L (136-145); Total Protein,Serum 6.9 g/dl (6.3-8.2); Triglycerides 152 mg/dl (30-150); VLDL Cholesterol 30 mg/dL (0-40)
[2024-03-05 19:04] LABS: Direct LDL Cholesterol 124.65 mg/dL (100-129)
[2024-03-05 19:12] LABS: 25-OH Vitamin D, Total < 12.8 ng/mL (30-100)
[2024-03-05 19:23] LABS: Thyroid Stimulating Hormone 1.69 uIU/mL (0.465-4.68)
== END 2024-03-05 23:59 | disposition home or self-care (01) ==
LOC: LAB.DROPOF 03-08 12:30
PROVIDERS: PCP Family Medicine; Visit Provider Family Medicine
DX: I51.89 Other ill-defined heart diseases (principal); I25.10 Atherosclerotic heart disease of native coronary artery without angina pectoris; F32.A Depression, unspecified; F41.9 Anxiety disorder, unspecified; E55.9 Vitamin D deficiency, unspecified; F41.1 Generalized anxiety disorder
CPT/HCPCS: 80053; 80061; 82306; 84443; 85025

== ENCOUNTER 2024-04-30 12:44 | Outpatient (CLI) | payer MEDICARE, MEDICAID, SELFPAY ==
[2024-04-30] MEDS: ALBUTEROL 0.083% 2.5 MG/3 ML NEB IH (13:45)
== END 2024-04-30 23:59 | disposition home or self-care (01) ==
LOC: RT 12:45
PROVIDERS: PCP Emergency Medicine; Visit Provider Internal Medicine Pulmonary Disease
DX: R06.09 Other forms of dyspnea (principal)
CPT/HCPCS: 94060; 94618; 94640; 94726; 94729; J7613

== ENCOUNTER 2024-07-26 08:24 | Day surgery (SDC) | payer MEDICARE, MEDICAID, SELFPAY ==
[2024-07-22 12:53] VITALS: BMI 25.2
[2024-07-26 08:39] VITALS: BP 138/82; PULSE 71; RESP 16; TEMP 36.3; O2SAT 94
--- NOTE | 2024-07-26 08:52 | P.PNANES_ITS ---
[facility] Disclaimer: The information contained in this section may have been updated after the patient was seen, as this information can be updated by other users. Medical History Normal esophagogastroduodenoscopy (EGD) Colonoscopy planned Positive colorectal cancer screening using Cologuard test Interstitial pneumonia Drug overdose of undetermined intent Respiratory failure Acute respiratory failure with hypoxia Family history of pulmonary embolism COPD with exacerbation Generalized anxiety disorder Pulmonary embolism On mechanically assisted ventilation Antineutrophil cytoplasmic antibody (ANCA) positive Moderate persistent asthma Scoliosis Restrictive lung disease Asthma Abnormal PFT Restrictive lung disease Dyspnea on exertion Panic attacks COPD (chronic obstructive pulmonary disease) PTSD (post-traumatic stress disorder) Methadone overdose Pneumonia, community acquired Gabapentin overdose Xanax overdose CAD (coronary artery disease) Chronic low back pain 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 Anxiety and depression Diastolic dysfunction Elevated left ventricular end-diastolic pressure (LVEDP) HTN (hypertension) Tachycardia Surgical History Hx of cholecystectomy Hx of appendectomy H/O tubal ligation History of salpingo-oophorectomy History of tonsillectomy Family History (Updated 07/26/24 @ 08:40 by Roma Matson RN) Sister Family history of diabetes mellitus type II Other Asthma Diabetes Heart attack Hypertension Stroke Social History (Updated 07/26/24 @ 08:42 by Roma Matson RN) Smoking Status: Never smoker alcohol intake: never substance use type: denies use current occupational status: disabled Travel in the last 8 weeks: None household members: significant other housing: house number of children: 3 current occupational exposures/hazards: No caffeine: Yes Have you lived/traveled outside [place] in past 30 days?: No Contact w/someone who lives/traveled outside US past 30 days?: No Exposure to someone with infectious disease in past 14 days?: No Do you have a fever (greater than 100.4 F or 38 C)?: No Have you tested positive for COVID-19: Yes Exposed to someone with COVID-19 in past 14 days?: No Do you have a sore throat?: No Do you have a cough?: No Do you have any weakness?: No Are you experiencing any nausea/vomitting?: No Do you have any diarrhea?: No Are you experiencing any unusual bleeding?: No Do you have any muscle aches/pain?: No Do you have any abdominal pain?: No Are you experiencing loss of taste or smell?: No [facility] Anesthesia Checklist Patient Identification Patient Identification: Arm Band Structural Data Admitted From: Home Planned Operative Procedure/s: Colonoscopy Consent for Planned Operative Procedure(s) Verified: Yes Verified Documents: Surgical Consent, History and Physical and Cardiac Clearance NPO Status Verified Time NPO: 00:00 Additional verifications Anesthesia Reactions: No Airway Assessment Mallampati Score:: Class II C-Spine Mobility Assessed: Yes TMJ Mobility Assessed: Yes Dentition: Good Dentition Neurological Assessment Level of Consciousness: Awake, Alert and Appropriate Anesthesia Plan Anesthesia Risk discussed: Yes Anesthesia Plan: Verified ASA Class: III Anesthesia Type: MAC
[2024-07-26] MEDS: LACTATED RINGERS 1000ML 1,000 ML 50 ML IV (08:55)
--- NOTE | 2024-07-26 08:56 | P.HP_ITS ---
History of Present Illness *Admission Date: 07/26/24 *Reason for visit:: Positive Cologuard *History of present illness: Ms. Azevedo is a 69-year-old female who is here for screening colonoscopy secondary to a positive Cologuard. The examination is deemed medically necessary for [default value]. The patient has been seen, interviewed and examined prior to the procedure by both myself and the anesthesia provider. [facility] Disclaimer: The information contained in this section may have been updated after the patient was seen, as this information can be updated by other users. Medical History Normal esophagogastroduodenoscopy (EGD) Colonoscopy planned Positive colorectal cancer screening using Cologuard test Interstitial pneumonia Drug overdose of undetermined intent Respiratory failure Acute respiratory failure with hypoxia Family history of pulmonary embolism COPD with exacerbation Generalized anxiety disorder Pulmonary embolism On mechanically assisted ventilation Antineutrophil cytoplasmic antibody (ANCA) positive Moderate persistent asthma Scoliosis Restrictive lung disease Asthma Abnormal PFT Restrictive lung disease Dyspnea on exertion Panic attacks COPD (chronic obstructive pulmonary disease) PTSD (post-traumatic stress disorder) Methadone overdose Pneumonia, community acquired Gabapentin overdose Xanax overdose CAD (coronary artery disease) Chronic low back pain 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 Anxiety and depression Diastolic dysfunction Elevated left ventricular end-diastolic pressure (LVEDP) HTN (hypertension) Tachycardia Surgical History Hx of cholecystectomy Hx of appendectomy H/O tubal ligation History of salpingo-oophorectomy History of tonsillectomy Family History (Updated 07/26/24 @ 08:40 by Roma Matson RN) Sister Family history of diabetes mellitus type II Other Asthma Diabetes Heart attack Hypertension Stroke Social History (Updated 07/26/24 @ 08:42 by Roma Matson RN) Smoking Status: Never smoker alcohol intake: never substance use type: denies use current occupational status: disabled Travel in the last 8 weeks: None household members: significant other housing: house number of children: 3 current occupational exposures/hazards: No caffeine: Yes Have you lived/traveled outside [place] in past 30 days?: No Contact w/someone who lives/traveled outside US past 30 days?: No Exposure to someone with infectious disease in past 14 days?: No Do you have a fever (greater than 100.4 F or 38 C)?: No Have you tested positive for COVID-19: Yes Exposed to someone with COVID-19 in past 14 days?: No Do you have a sore throat?: No Do you have a cough?: No Do you have any weakness?: No Are you experiencing any nausea/vomitting?: No Do you have any diarrhea?: No Are you experiencing any unusual bleeding?: No Do you have any muscle aches/pain?: No Do you have any abdominal pain?: No Are you experiencing loss of taste or smell?: No Other Medical History Have you received the Flu Vaccine for this season: No Have you received the Pneumonia Vaccine: Yes Review of Systems Review of Systems Review of systems (narrative): Negative *Cardiovascular Comments: Negative *Gastrointestinal Comments: Negative *Genitourinary Comments: Negative *Musculoskeletal Comments: Negative *Neurologic Comments: Negative Meds Home Medications and Allergies Home Medications ?Medication ?Instructions ?Recorded ?Confirmed ?Type naloxone 4 mg/actuation nasal 4 mg intranasal Q3M PRN opioid 03/10/23 07/26/24 Rx spray (Narcan) overdose #2 ea oxycodone 10 mg tablet 10 mg PO Q6H 03/10/23 07/26/24 History fluticasone fur. 100 mcg-umeclid 1 inh inhalation DAILY 90 days #90 03/17/23 07/26/24 Rx 62.5 mcg-vilant 25 mcg ea inhalat.powder (Trelegy Ellipta) ipratropium 0.5 mg-albuterol 3 mg 3 ml inhalation QID PRN shortness 03/17/23 07/26/24 Rx (2.5 mg base)/3 mL nebulization of breath or wheezing 90 days #270 soln mL morphine 15 mg immediate release 15 mg PO HS 04/10/23 07/26/24 History tablet albuterol sulfate 90 mcg/actuation 2 inh inhalation QID PRN shortness 08/27/23 07/26/24 Rx aerosol inhaler (ProAir HFA) of breath or wheezing #8.5 grams buspirone 7.5 mg tablet 7.5 mg PO TID #90 tabs 03/05/24 07/26/24 Rx cholecalciferol (vitamin D3) 50 50 mcg PO DAILY #90 caps 03/10/24 07/26/24 Rx mcg (2,000 unit) capsule sodium,potassium,mag sulfates 17.5 See Rx Instructions PO .COMPLEX 07/15/24 07/26/24 Rx gram-3.13 gram-1.6 gram oral soln #354 mL (Suprep Bowel Prep Kit) baclofen 10 mg tablet 10 mg PO DAILY 07/19/24 07/26/24 History apixaban 5 mg tablet (Eliquis) See Rx Instructions .Route .COMPLEX 07/22/24 07/26/24 History furosemide 20 mg tablet (Lasix) See Rx Instructions .Route .COMPLEX 07/22/24 07/26/24 History hydroxyzine pamoate 25 mg capsule 25 mg PO BID 07/22/24 07/26/24 History (Vistaril) metoprolol succinate 50 mg See Rx Instructions .Route 07/23/24 07/26/24 Rx tablet,extended release 24 hr .COMPLEX #60 tabs omeprazole 40 mg capsule,delayed 40 mg PO DAILY 07/26/24 07/26/24 History release potassium chloride 10 mEq 10 meq PO DAILY 07/26/24 07/26/24 History capsule,extended release New Prescriptions to Start Prescriptions: Allergies Allergy/AdvReac Type Severity Reaction Status Date / Time No Known Allergies Allergy Verified 07/26/24 08:34 Exam Data for Last 24 hours Vital signs and Labs for Last 24 Hours: Temp Pulse Resp BP Pulse Ox O2 Del Method 97.4 F L 71 16 138/82 94 L Room Air 07/26/24 08:39 07/26/24 08:39 07/26/24 08:39 07/26/24 08:39 07/26/24 08:39 07/26/24 08:39 *Routine HEENT Exam Head: Present normocephalic Eye: Present EOMI and PERRL ENT: Present mucous membranes moist *Routine Neck Exam Neck: Present supple *Routine Respiratory Exam Respiratory: Present CTA bilaterally *Routine Cardiovascular Exam Cardiovascular: Present RRR *Routine Abdominal Exam Abdominal: Present soft and normoactive bowel sounds; Absent tenderness *Routine Rectal Exam Rectal:: deferred *Routine Genitalia Exam Genitalia:: deferred *Routine Extremities Exam Extremities: Absent cyanosis, clubbing or edema *Routine Skin Exam Skin: Present warm; Absent rash *Routine Neurological Exam Neurological: Present alert and oriented X3 Assessment and Plan *Assessment and plan (1) Positive colorectal cancer screening using Cologuard test: Status: Acute Category: Medical Code(s): R19.5 - Other fecal abnormalities Plan A/P: 1. Positive Cologuard is the preprocedural diagnosis. The patient will be anesthetized/sedated using MAC sedation. The patient has been seen and examined. Cardiac and lung assessment prior to the examination is stable. Proceed with planned screening colonoscopy
--- NOTE | 2024-07-26 09:01 | HMH.PROCNOTE ---
[facility] Procedure Note Date: 07/26/24 Time: 09:24 Procedure Note:: Colonoscopy Procedure Report: Colonoscopy with cold snare polypectomy Endoscopist: Willie Morales II, MD Referring physician: DELVIN Prajapati Date of Procedure: July 26, 2024 Equipment: Olympus 190 variable stiffness pediatric colonoscope Sedation: MAC sedation Indication: Mrs. Azevedo is a 69-year-old female who is here for screening colonoscopy secondary to a recently positive Cologuard (04/30/2024). The patient states that her last colonoscopy was more than 10 years ago. She reports no abdominal pain, weight loss, change in her bowel habits or rectal bleeding. She reports no family history of colon cancer. Procedure: Prior to the procedure, a history and physical exam was performed, and patient's medications and allergies were reviewed. The risks, benefits and alternatives of the sedation and procedure were discussed with the patient. All questions were answered and informed consent was obtained. The patient was brought to the procedure room. Patient identification and proposed procedure were verified by the physician and the nurse. The patient was placed in a left lateral decubitus position and the scope was passed under direct vision. Throughout the procedure, the patient's blood pressure, pulse, and oxygen saturations were monitored continuously. The colonoscopy was accomplished without difficulty. The patient tolerated the procedure well. Findings: On digital rectal examination there was normal rectal tone. There were no external hemorrhoids. The colonoscope was introduced through the anal canal to the rectum and advanced to the cecum. The ileocecal valve and appendiceal orifice were identified. The scope was advanced a short distance into the ileum which appeared grossly normal. The scope was then withdrawn into the colon. There was a single 5 mm polyp in the cecum removed via cold snare polypectomy. The remaining cecum, ascending and transverse colon and mucosa were grossly normal. There were scattered diverticuli throughout the descending and sigmoid colon (LEFT colon). The rectum itself was normal. Upon retroflexion within the rectum there were grade 1 internal hemorrhoids. The preparation was good throughout with [place] Preparation Score of 8 out of 9. The cecal time was 12 minutes. Impression: 1. Cecal polyp (5 mm) 2. Left-sided diverticulosis 3. Grade 1 internal hemorrhoids Plan: I will follow-up the polyp histology and recommend repeat surveillance colonoscopy again in 7 years (adenomatous polyp). I would encourage psyllium bulking fiber supplementation on a maintenance basis.
[2024-07-26 09:02] VITALS: O2SAT 94
[2024-07-26 09:28] VITALS: BP 106/58; PULSE 74; RESP 16; TEMP 36.4; O2SAT 92
[2024-07-26 09:38] VITALS: BP 112/71; PULSE 71; RESP 16; O2SAT 92
[2024-07-26 09:48] VITALS: BP 130/76; PULSE 77; RESP 17; O2SAT 95
[2024-07-26 09:58] VITALS: BP 150/87; PULSE 69; RESP 18; O2SAT 95
== END 2024-07-26 10:00 | disposition home or self-care (01) ==
PROVIDERS: PCP Nurse Practitioner Family; Visit Provider Internal Medicine Gastroenterology
PROC: (CPT 45385; principal; 2024-07-26 09:30)
DX: R19.5 Other fecal abnormalities (principal); K63.5 Polyp of colon; K57.30 Diverticulosis of large intestine without perforation or abscess without bleeding; K64.0 First degree hemorrhoids
CPT/HCPCS: 45385; J7120

== ENCOUNTER 2025-01-03 06:58 | Outpatient (CLI) | payer MEDICARE, MEDICAID, SELFPAY ==
--- OUTSIDE RECORDS SUMMARY | 2024-08-12 06:30 | XMS_ITS ---
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 :1955 A ge:69 Y S ex:Female Date:08/12/2024 Address:[address], [address] [phone] Subjective: * Chief Complaints: * 1 . 2 Month Follow Up. * Medical History: Objective: * Vitals: Assessment: Plan: * Treatment: * * Electronic signature of Al Ballrad II, M.D. on 01/03/2025 at 06:00 AM CDT Sign off status: Pending * Provider: Josemanuel Ballard II, M.D. Date: 0 08/12/2024 Generated for Dimitri singh/Belkis/Sami on: 0 01/03/2025 06:00 AM [id number]
--- OUTSIDE RECORDS SUMMARY | 2024-11-30 07:15 | XMS_ITS ---
Author Organization [facility] Address [address] [place] [address] Care Team Providers Care Herpetology Teacher Name Role Phone Trip Ballard II Unavailable Ranjit KILLIAN -NeurosurgCosta Unavailable Unav ailable Allergies No Known Allergies Results Component Value Reference Range Notes Urine Test ANALYZER Reviewed date:11/30/2024 03:32:49 PM Interpretation:+OPI +OXY Performing Lab: Notes/Report: +OPI +OXY Heroin Metabolite (6AM) NEG Amphetamine (AMP) NEG Benzodiazepine (TRICIA) NEG Buprenorphine NEG Cocaine (KIRSTY) NEG Hydrocodone (HYD) NEG Methadone (MTD) NEG Opiate (OPI) POS Oxycodone (OXY) POS REASON FOR VISIT low back pain, elkin leg pain Medications Medication SIG (Take, Route, Frequency, Duration) Notes Start Date End Date Status Relistor 150 mg 1 tab(s) orally once a day (in the morning); Duration: 30 day(s) Dx: K59.03 , Fax PA request to [phone] or [phone] Active baclofen 10 mg 1 tab(s) orally 2 times a day; Duration: 28 days DO NOT FILL SOONER THAN 28 DAYS, (OK TO FILL EARLY, ONLY IF CLOSED) Active busPIRone 5 mg 1 tab(s) orally 2 times a day; Duration: 30 day(s) 06/11/2022 Active omeprazole 40 mg 1 cap(s) orally once a day; Duration: 30 day(s) 06/11/2022 Active furosemide 20 mg 1 tab(s) orally once a day; Duration: 30 day(s) 06/11/2022 Active Morphine Sulfate 15 mg 1 tab(s) orally a t bed time; Duration: 28 days December 2024 RX, DO NOT FILL SOONER THAN 28 DAYS, (OK TO FILL EARLY, ONLY IF CLOSED) Active Morphine Sulfate 15 mg 1 tab(s) orally a t bed time; Duration: 28 days November 2024 RX, , DO NOT FILL SOONER THAN 28 DAYS, (OK TO FILL EARLY, ONLY IF CLOSED) Active Narcan 4 mg/0.1 mL as directed intranasally once; Duration: 1 days Active OxyCODONE Hydrochloride 10 mg 1 tab(s) orally 4 times a day; Duration: 28 days December 2024 RX, DO NOT FILL SOONER THAN 28 DAYS, (OK TO FILL EARLY, ONLY IF CLOSED) Active OxyCODONE Hydrochloride 10 mg 1 tab(s) orally 4 times a day; Duration: 28 days November 2024 RX, DO NOT FILL SOONER THAN 28 DAYS, (OK TO FILL EARLY, ONLY IF CLOSED) Active metoprolol 50 mg 1 tab(s) orally once a day; Duration: 30 day(s) 07/16/2023 Active Eliquis 5 mg as directed orally 2 times a day; Duration: 30 day(s) 07/16/2023 Active potassium bicarbonate 10 mEq 1 tab(s) orally once a day 07/16/2023 Active Vital Signs Blood pressure systolic 162 mm Hg 12/01/19 25 Blood pressure diastolic 85 mm Hg 025 Heart Rate 66 /min 11/30/2024 Height 68 in 11/30/2024 Weight 169 lbs 11/30/2024 BMI 25.69 kg/m2 11/30/2024 Encounters Encounter Location Date Provider Diagnosis [facility] [address] [place] [address] 11/30/2024 Trip Ballard 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 Right hip xray to [facility] 08/10/2024 Screen Expected Definitive Unexpected(+t kandy) 10/06/2024 Screen Expected, 11/30/2024Scr een Expected,Sent for Definitive, will monitor October 06, 2024: Review of history and previous note: Ms. Arciniega returns today for an office visit and medication refill. She has been followed by us for quite some time and until about 2 years ago relied on the pain pump. She had a fall that resulted in shearing of the pain pump catheter. Because of the significant degenerative changes in her back and osseous fusion around the lumbar spine replacement of that catheter turned out not to be an option per neurosurgery. Since that time we switch back to by mouth medications. She has remained stable on oxycodone 10 mg 1 p.o. 4 times daily and morphine 15 mg 1 p.o. nightly. She denies side effect of the medications. Sarina and UDS were reviewed. Opioid risk assessment is moderate. She has remained stable on oxycodone 10 mg 4 times daily and morphine 15mg nightly. She denies side effect of the medications. Sarina and UDS were reviewed. Schedule to follow up in two months. October 06, 2024: Ms. Arciniega presents today with continued lower back pain that extends into both legs down to her feet. The patient has a history of lower back surgery in the past secondary to a history of scoliosis. She says that she has had a total of about 10 surgeries in the past. She has had injections in the past that did not help. The most recent injection was in 2020 and it was a bilateral SI joint injection. We talked about possible additional injections and she refuses. I reviewed the patient's medications and she has been on oxycodone 10 mg 4 times daily in addition to morphine 15 mg nightly. She has been on this regimen for the last few years which is working for her pain. We will refill her medications and see her back in 2 months and also order a TENS unit for her back. No new problems otherwise and no neurologic changes or changes in bowel or bladder 11/30/2024 The patient is a 69-year-old female presenting for medication follow-up related to chronic low back pain and bilateral leg pain. She reports that her pain is constant and described as aching, burning, sharp, stabbing, numb, and tingling, with an average intensity of 6/10. The pain worsens with walking and standing and is somewhat relieved by sitting, lying down, and use of medications. Her current regimen includes Oxycodone 10mg QID and Morphine 15mg at bedtime, which she states provides about 40% pain relief lasting approximately two hours. She denies any side effects from her medications. She takes Morphine dose only at bedtime. The patient has a complex surgical history including multiple back surgeries for scoliosis and reports approximately 10 procedures in total. She previously underwent bilateral sacroiliac joint injections (SIJIs) on 12/01/2020, which provided no relief, and she declines any further injection therapy at this time. She continues to experience pain that radiates into both legs down to her feet. SARINA and urine drug screen (UDS) were reviewed and are currently compliant. Of note, a prior screen on 08/10/2024 was expected, but the definitive test was unexpectedly positive for tramadol. More recent screens have been expected, and the most recent on 11/30/2024 was sent for definitive testing this will be monitored. Today, the patient also reports new or worsening right hip pain. A right hip X-ray has been ordered and will be performed at [facility]. A referral has also been placed for a TENS unit for adjunctive pain relief. Medications to be refilled include Oxycodone 10mg QID, Morphine 15mg QHS, Baclofen 10mg BID, and Relistor 150mg daily. The patient is scheduled to return for follow-up in two months. 11/30/2024 Postlaminectomy syndrome, not elsewhere classified (ICD-10 - M96.1) October 06, 2024: Review of history and previous note: Ms. Arciniega returns today for an office visit and medication refill. She has been followed by us for quite some time and until about 2 years ago relied on the pain pump. She had a fall that resulted in shearing of the pain pump catheter. Because of the significant degenerative changes in her back and osseous fusion around the lumbar spine replacement of that catheter turned out not to be an option per neurosurgery. Since that time we switch back to by mouth medications. She has remained stable on oxycodone 10 mg 1 p.o. 4 times daily and morphine 15 mg 1 p.o. nightly. She denies side effect of the medications. Sarina and UDS were reviewed. Opioid risk assessment is moderate. She has remained stable on oxycodone 10 mg 4 times daily and morphine 15mg nightly. She denies side effect of the medications. Sarina and UDS were reviewed. Schedule to follow up in two months. October 06, 2024: Ms. Arciniega presents today with continued lower back pain that extends into both legs down to her feet. The patient has a history of lower back surgery in the past secondary to a history of scoliosis. She says that she has had a total of about 10 surgeries in the past. She has had injections in the past that did not help. The most recent injection was in 2020 and it was a bilateral SI joint injection. We talked about possible additional injections and she refuses. I reviewed the patient's medications and she has been on oxycodone 10 mg 4 times daily in addition to morphine 15 mg nightly. She has been on this regimen for the last few years which is working for her pain. We will refill her medications and see her back in 2 months and also order a TENS unit for her back. No new problems otherwise and no neurologic changes or changes in bowel or bladder 11/30/2024 The patient is a 69-year-old female presenting for medication follow-up related to chronic low back pain and bilateral leg pain. She reports that her pain is constant and described as aching, burning, sharp, stabbing, numb, and tingling, with an average intensity of 6/10. The pain worsens with walking and standing and is somewhat relieved by sitting, lying down, and use of medications. Her current regimen includes Oxycodone 10mg QID and Morphine 15mg at bedtime, which she states provides about 40% pain relief lasting approximately two hours. She denies any side effects from her medications. She takes Morphine dose only at bedtime. The patient has a complex surgical history including multiple back surgeries for scoliosis and reports approximately 10 procedures in total. She previously underwent bilateral sacroiliac joint injections (SIJIs) on 12/01/2020, which provided no relief, and she declines any further injection therapy at this time. She continues to experience pain that radiates into both legs down to her feet. SARINA and urine drug screen (UDS) were reviewed and are currently compliant. Of note, a prior screen on 08/10/2024 was expected, but the definitive test was unexpectedly positive for tramadol. More recent screens have been expected, and the most recent on 11/30/2024 was sent for definitive testing this will be monitored. Today, the patient also reports new or worsening right hip pain. A right hip X-ray has been ordered and will be performed at [facility]. A referral has also been placed for a TENS unit for adjunctive pain relief. Medications to be refilled include Oxycodone 10mg QID, Morphine 15mg QHS, Baclofen 10mg BID, and Relistor 150mg daily. The patient is scheduled to return for follow-up in two months. 11/30/2024 Scoliosis, unspecified (ICD-10 - M41.9) October 06, 2024: Review of history and previous note: Ms. Arciniega returns today for an office visit and medication refill. She has been followed by us for quite some time and until about 2 years ago relied on the pain pump. She had a fall that resulted in shearing of the pain pump catheter. Because of the significant degenerative changes in her back and osseous fusion around the lumbar spine replacement of that catheter turned out not to be an option per neurosurgery. Since that time we switch back to by mouth medications. She has remained stable on oxycodone 10 mg 1 p.o. 4 times daily and morphine 15 mg 1 p.o. nightly. She denies side effect of the medications. Sarina and UDS were reviewed. Opioid risk assessment is moderate. She has remained stable on oxycodone 10 mg 4 times daily and morphine 15mg nightly. She denies side effect of the medications. Sarina and UDS were reviewed. Schedule to follow up in two months. October 06, 2024: Ms. Arciniega presents today with continued lower back pain that extends into both legs down to her feet. The patient has a history of lower back surgery in the past secondary to a history of scoliosis. She says that she has had a total of about 10 surgeries in the past. She has had injections in the past that did not help. The most recent injection was in 2020 and it was a bilateral SI joint injection. We talked about possible additional injections and she refuses. I reviewed the patient's medications and she has been on oxycodone 10 mg 4 times daily in addition to morphine 15 mg nightly. She has been on this regimen for the last few years which is working for her pain. We will refill her medications and see her back in 2 months and also order a TENS unit for her back. No new problems otherwise and no neurologic changes or changes in bowel or bladder 11/30/2024 The patient is a 69-year-old female presenting for medication follow-up related to chronic low back pain and bilateral leg pain. She reports that her pain is constant and described as aching, burning, sharp, stabbing, numb, and tingling, with an average intensity of 6/10. The pain worsens with walking and standing and is somewhat relieved by sitting, lying down, and use of medications. Her current regimen includes Oxycodone 10mg QID and Morphine 15mg at bedtime, which she states provides about 40% pain relief lasting approximately two hours. She denies any side effects from her medications. She takes Morphine dose only at bedtime. The patient has a complex surgical history including multiple back surgeries for scoliosis and reports approximately 10 procedures in total. She previously underwent bilateral sacroiliac joint injections (SIJIs) on 12/01/2020, which provided no relief, and she declines any further injection therapy at this time. She continues to experience pain that radiates into both legs down to her feet. SARINA and urine drug screen (UDS) were reviewed and are currently compliant. Of note, a prior screen on 08/10/2024 was expected, but the definitive test was unexpectedly positive for tramadol. More recent screens have been expected, and the most recent on 11/30/2024 was sent for definitive testing this will be monitored. Today, the patient also reports new or worsening right hip pain. A right hip X-ray has been ordered and will be performed at [facility]. A referral has also been placed for a TENS unit for adjunctive pain relief. Medications to be refilled include Oxycodone 10mg QID, Morphine 15mg QHS, Baclofen 10mg BID, and Relistor 150mg daily. The patient is scheduled to return for follow-up in two months. 11/30/2024 Obstructive sleep apnea (adult) (pediatric) (ICD-10 - G47.33) October 06, 2024: Review of history and previous note: Ms. Arciniega returns today for an office visit and medication refill. She has been followed by us for quite some time and until about 2 years ago relied on the pain pump. She had a fall that resulted in shearing of the pain pump catheter. Because of the significant degenerative changes in her back and osseous fusion around the lumbar spine replacement of that catheter turned out not to be an option per neurosurgery. Since that time we switch back to by mouth medications. She has remained stable on oxycodone 10 mg 1 p.o. 4 times daily and morphine 15 mg 1 p.o. nightly. She denies side effect of the medications. Sarina and UDS were reviewed. Opioid risk assessment is moderate. She has remained stable on oxycodone 10 mg 4 times daily and morphine 15mg nightly. She denies side effect of the medications. Sarina and UDS were reviewed. Schedule to follow up in two months. October 06, 2024: Ms. Arciniega presents today with continued lower back pain that extends into both legs down to her feet. The patient has a history of lower back surgery in the past secondary to a history of scoliosis. She says that she has had a total of about 10 surgeries in the past. She has had injections in the past that did not help. The most recent injection was in 2020 and it was a bilateral SI joint injection. We talked about possible additional injections and she refuses. I reviewed the patient's medications and she has been on oxycodone 10 mg 4 times daily in addition to morphine 15 mg nightly. She has been on this regimen for the last few years which is working for her pain. We will refill her medications and see her back in 2 months and also order a TENS unit for her back. No new problems otherwise and no neurologic changes or changes in bowel or bladder 11/30/2024 The patient is a 69-year-old female presenting for medication follow-up related to chronic low back pain and bilateral leg pain. She reports that her pain is constant and described as aching, burning, sharp, stabbing, numb, and tingling, with an average intensity of 6/10. The pain worsens with walking and standing and is somewhat relieved by sitting, lying down, and use of medications. Her current regimen includes Oxycodone 10mg QID and Morphine 15mg at bedtime, which she states provides about 40% pain relief lasting approximately two hours. She denies any side effects from her medications. She takes Morphine dose only at bedtime. The patient has a complex surgical history including multiple back surgeries for scoliosis and reports approximately 10 procedures in total. She previously underwent bilateral sacroiliac joint injections (SIJIs) on 12/01/2020, which provided no relief, and she declines any further injection therapy at this time. She continues to experience pain that radiates into both legs down to her feet. SARINA and urine drug screen (UDS) were reviewed and are currently compliant. Of note, a prior screen on 08/10/2024 was expected, but the definitive test was unexpectedly positive for tramadol. More recent screens have been expected, and the most recent on 11/30/2024 was sent for definitive testing this will be monitored. Today, the patient also reports new or worsening right hip pain. A right hip X-ray has been ordered and will be performed at [facility]. A referral has also been placed for a TENS unit for adjunctive pain relief. Medications to be refilled include Oxycodone 10mg QID, Morphine 15mg QHS, Baclofen 10mg BID, and Relistor 150mg daily. The patient is scheduled to return for follow-up in two months. 11/30/2024 Drug induced constipation (ICD-10 - K59.03) October 06, 2024: Review of history and previous note: Ms. Arciniega returns today for an office visit and medication refill. She has been followed by us for quite some time and until about 2 years ago relied on the pain pump. She had a fall that resulted in shearing of the pain pump catheter. Because of the significant degenerative changes in her back and osseous fusion around the lumbar spine replacement of that catheter turned out not to be an option per neurosurgery. Since that time we switch back to by mouth medications. She has remained stable on oxycodone 10 mg 1 p.o. 4 times daily and morphine 15 mg 1 p.o. nightly. She denies side effect of the medications. Sarina and UDS were reviewed. Opioid risk assessment is moderate. She has remained stable on oxycodone 10 mg 4 times daily and morphine 15mg nightly. She denies side effect of the medications. Sarina and UDS were reviewed. Schedule to follow up in two months. October 06, 2024: Ms. Arciniega presents today with continued lower back pain that extends into both legs down to her feet. The patient has a history of lower back surgery in the past secondary to a history of scoliosis. She says that she has had a total of about 10 surgeries in the past. She has had injections in the past that did not help. The most recent injection was in 2020 and it was a bilateral SI joint injection. We talked about possible additional injections and she refuses. I reviewed the patient's medications and she has been on oxycodone 10 mg 4 times daily in addition to morphine 15 mg nightly. She has been on this regimen for the last few years which is working for her pain. We will refill her medications and see her back in 2 months and also order a TENS unit for her back. No new problems otherwise and no neurologic changes or changes in bowel or bladder 11/30/2024 The patient is a 69-year-old female presenting for medication follow-up related to chronic low back pain and bilateral leg pain. She reports that her pain is constant and described as aching, burning, sharp, stabbing, numb, and tingling, with an average intensity of 6/10. The pain worsens with walking and standing and is somewhat relieved by sitting, lying down, and use of medications. Her current regimen includes Oxycodone 10mg QID and Morphine 15mg at bedtime, which she states provides about 40% pain relief lasting approximately two hours. She denies any side effects from her medications. She takes Morphine dose only at bedtime. The patient has a complex surgical history including multiple back surgeries for scoliosis and reports approximately 10 procedures in total. She previously underwent bilateral sacroiliac joint injections (SIJIs) on 12/01/2020, which provided no relief, and she declines any further injection therapy at this time. She continues to experience pain that radiates into both legs down to her feet. SARINA and urine drug screen (UDS) were reviewed and are currently compliant. Of note, a prior screen on 08/10/2024 was expected, but the definitive test was unexpectedly positive for tramadol. More recent screens have been expected, and the most recent on 11/30/2024 was sent for definitive testing this will be monitored. Today, the patient also reports new or worsening right hip pain. A right hip X-ray has been ordered and will be performed at [facility]. A referral has also been placed for a TENS unit for adjunctive pain relief. Medications to be refilled include Oxycodone 10mg QID, Morphine 15mg QHS, Baclofen 10mg BID, and Relistor 150mg daily. The patient is scheduled to return for follow-up in two months. Plan Of Treatment Medication Medication Name Sig Start Date Stop Date Notes Relistor 150 mg 1 tab(s) orally once a day (in the morning); Duration: 30 day(s) Dx: K59.03 , Fax PA request to [phone] or [phone] baclofen 10 mg 1 tab(s) orally 2 ti mes a day; Duration: 28 days DO NOT FILL SOONER THAN 28 DAYS, (OK TO FILL EARLY, ONLY IF CLOSED) Morphine Sulfate 15 mg 1 tab(s) orally a t bed time; Duration: 28 days December 2024 RX, DO NOT FILL SOONER THAN 28 DAYS, (OK TO FILL EARLY, ONLY IF CLOSED) Morphine Sulfate 15 mg 1 tab(s) orally a t bed time; Duration: 28 days November 2024 RX, , DO NOT FILL SOONER THAN 28 DAYS, (OK TO FILL EARLY, ONLY IF CLOSED) Narcan 4 mg/0.1 mL as directed intranasally once; Duration: 1 days OxyCODONE Hydrochloride 10 mg 1 tab(s) orally 4 times a day; Duration: 28 days December 2024 RX, DO NOT FILL SOONER THAN 28 DAYS, (OK TO FILL EARLY, ONLY IF CLOSED) OxyCODONE Hydrochloride 10 mg 1 tab(s) orally 4 times a day; Duration: 28 days November 2024 RX, DO NOT FILL SOONER THAN 28 DAYS, (OK TO FILL EARLY, ONLY IF CLOSED) Treatment Notes Assessment Notes 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 Right hip xray to [facility] Next Appt Details Follow Up: 2 Months, Reason: Provider Name:Trip headley, 01/26/2025 10:00:00 AM, [address], [address], [place], [address], Procedure Notes * Category Sub-Category Detail Notes PROVIDER ENCOUNTER AND OVERSIGHT Consult Performed By: Tomasz BeltránV[facility] [place] [employer] ENGINEER-BC-OBED)Sarthak 12/02/2024 11:59:07 PM > collaborated treatment plan with Trip daniel M.D. , supervising physician who was present in office during consultation Progress Notes * ARCINIEGAAntShannonOB:1955 (69 yo F)Acc No.[id number]:11/30/2024 FollowUP Patient: Maggie Lopes Provider: Josemanuel Ballard II, M.D. Resource:Tomasz ([facility] [place] [employer] ENGINEER-BC-OBEDMary Rodas :1955 A ge:69 Y S ex:Female Date:11/30/2024 Address:[address] [place] [address], [facility], [id number] Subjective: * Chief Complaints: * 1 . Low back pain. 2. Elkin leg pain. * HPI: T ODAYS PAIN EVALUATION: 69 year old female presents with c/o MEDICATION FOLLOW UP: T he patient is currently prescribed O xycodone 10mg QID and Morphine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
--- NOTE | 2025-01-03 07:00 | CT_ITS ---
FINAL REPORT CLINICAL HISTORY: sob high resolution x 3 COMPARISON: CTA chest 04/18/2023 FINDINGS: CT CHEST without contrast COMPARISON: CT chest 04/18/2023. TECHNIQUE: Axial CT without contrast This study was performed with techniques to keep radiation doses as low as reasonably achievable, (ALARA). Individualized dose reduction techniques using automated exposure control or adjustment of mA and/or kV according to the patient's size were employed. FINDINGS: There is no evidence of diffuse interstitial lung disease. Mild bronchiectasis is present diffusely, with bronchial wall thickening. No pleural or pericardial effusion is seen . No adenopathy or mass lesion is present . A moderate-sized hiatal hernia is present. There are advanced changes of scoliosis. Note is made of pneumobilia in the upper abdomen. IMPRESSION: 1. No evidence of interstitial lung disease. 2. Mild bronchiectasis, diffuse, with bronchial wall thickening. 3. No areas of consolidation. This study was performed using automated techniques to achieve radiation exposure as low as reasonably achievable Reviewed, Interpreted and Dictated by Umang Morales MD Transcribed by Carol Gallagher Authenticated and [facility]
--- OUTSIDE RECORDS SUMMARY | 2025-01-03 07:00 | XMS_ITS | Clinical Summary ---
Author Organization [facility] Address [address] [place] [address] Phone Care Team Providers Care Materials Coordinator Name Role Phone Unavailable Unavailable Conditions or Problems No information available. Medications No information available. Medications Administered No information available. Allergies, Adverse Reactions, Alerts No information available. Results No information available. Plan of Care No information available. Procedures No information available. Vital Signs No information available. Immunizations No information available. Advance Directives No information available.
--- OUTSIDE RECORDS SUMMARY | 2025-01-03 07:00 | XMS_ITS | Clinical Summary ---
Author Organization [facility] ([place], [place], [place], [place]) Address [address] [place] [address] Care Team Providers Care Police Pilot Name Role Phone Louise Ramirez PA-C Primary Care Provider [phone] Allergies No known active allergies Medications promethazine (PHENERGAN) 25 MG tablet Take 1 tablet (25 mg total) by mouth every 6 (six) hours as needed for Nausea. Active albuterol HFA (VENTOLIN HFA) 90 mcg/actuation inhaler Inhale 2 puffs by mouth via inhaler every 6 (six) hours as needed for Wheezing. Active amLODIPine (NORVASC) 5 MG tablet Take 1 tablet (5 mg total) by mouth daily. Active busPIRone (BUSPAR) 5 MG tablet Take 1 tablet (5 mg total) by mouth 3 (three) times daily. Active fluticasone-ume clidin-vilanter (Trelegy Ellipta) 200-62.5-25 mcg DsDv Inhale 1 puff by mouth via inhaler daily. Active furosemide (LASIX) 20 MG tablet Take 1 tablet (20 mg total) by mouth daily. Active lisinopriL (PRINIVIL,ZESTR IL) 40 MG tablet Take 1 tablet (40 mg total) by mouth daily. Active metoprolol succinate (TOPROL-XL) 50 MG 24 hr tablet Take 1 tablet (50 mg total) by mouth daily. Active omeprazole (PriLOSEC) 40 MG capsule Take 1 capsule (40 mg total) by mouth daily. Active potassium chloride SA (K-DUR,KLOR-CON -M) 10 MEQ tablet Take 1 tablet (10 mEq total) by mouth daily. Active oxyCODONE (OXY-IR) 10 mg tablet Take 1 tablet (10 mg total) by mouth 2 (two) times daily as needed (for Breakthrough Pain). Max Daily Amount: 20 mg Active clonazePAM (KlonoPIN) 1 MG tablet Take 1 tablet (1 mg total) by mouth 3 (three) times daily as needed for Anxiety. Max Daily Amount: 3 mg Active methocarbamoL (ROBAXIN) 750 MG tablet Take 1 tablet (750 mg total) by mouth 2 (two) times daily as needed (for Muscle Spasms). Active naloxegoL (Movantik) 25 mg Oral Tab tablet Take 1 tablet (25 mg total) by mouth daily as needed (for Constipation). Active morphine (MS CONTIN) 15 MG 12 hr tablet Take 1 tablet (15 mg total) by mouth every 12 (twelve) hours. Max Daily Amount: 30 mg 14 tablet Active Active Problems Problem Noted Date Diagnosed Date Acute respiratory failure with hypoxemia 023 Drug overdose of undetermined intent 02/23/2023 Restrictive lung disease 02/23/2023 Hypertension 02/23/2023 Coronary artery disease 02/23/2023 COPD (chronic obstructive pulmonary disease) 08/2022 Chronic low back pain 02/23/2023 CHF (congestive heart failure) 02/23/2023 Asthma 02/23/2023 Anxiety and depression 02/23/2023 PTSD (post-traumatic stress disorder) 02/23/2023 Aspiration pneumonia 02/23/2023 Acute pulmonary embolism 02/23/2023 Family History Medical History Relation Name Comments Asthma Other Diabetes Other Heart disease Other Hypertension Other Relation Name Status Comments Other Social History Tobacco Use Types Packs/Day Years Used Date Smoking Tobacco: Never Passive Smoke Exposure: Past Smokeless Tobacco: Never Alcohol Use Standard Drinks/Week Comments Never 0 (1 standard drink = 0.6 oz pur e alcohol) PRAPARE - Transportation Answer Date Re corded In the past 12 months, has l ack of transportation kept you from medical appointments or from getting medications? No 03/05/2023 Lack of Transportation (Non-Medical) Not on file 03/05/2023 Food Insecurity Answer Date Recorded Food run out past 12 months Not on file 06/23 Food did not last past 12 months Not on file 07/04/2023 Employment Answer Date Recorded Help finding and keeping a job Not on file 0 07/04/2023 Family and Community Support Answer Rex e Recorded Help with Day to Day Activities Not on file 07/04/2023 Feeling Lonely or Isolated Not on file 07/04 Educational Attainment Answer Date Lonnie rded Speak language other than Slovenian at home Not on file 07/04/2023 Want help with school or training Not on file 07/04/2023 Substance Use Answer Date Recorded Used prescription meds for non-medical reasons N ot on file 07/04/2023 Used illegal drugs past 12 months Not on file 07/04/2023 Comments Unknown Sex and Gender Information Value Date Recorded Sex Assigned at Female 12/18/2021 12:53 PM CDT Legal Sex Female 12:53 PM CDT Gender Identity Female 12/18/2021 12:53 PM CDT Sexual Orientation Not on file Last Filed Vital Signs Vital Sign Reading Time Taken Comments Blood Pressure 134/85 03/06/2023 8:39 AM EDT Pulse 77 03/06/2023 8:39 AM EDT Temperature 36.3 C (97.3 F) 03/06/2023 8:39 AM EDT Respiratory Rate 18 03/06/2023 8:39 AM EDT Oxygen Saturation 94% 03/06/2023 8:39 AM EDT Inhaled Oxygen Concentration 3% 03/05/2023 5 :58 PM EDT Weight 93 kg (205 lb 0.4 oz) 02/26/2023 2:00 AM EDT Height 172.7 cm (5' 8 ) 02/24/2023 1:19 AM EDT Body Mass Index 31.17 02/24/2023 1:19 AM EDT Plan of Treatment Health Maintenance Due Date Last Done Comments CT Colonography 1957 Colonoscopy 1957 Colorectal Cancer Screening 1957 DXA SCAN 1957 FOBT/FIT 1957 Fit-DNA (Cologuard) 1957 Sigmoidoscopy 1957 Hepatitis C Screening 1975 DTAP/TDAP/TD VACCINES (1 - Tdap) 1976 Pneumococcal 50+ years (1 of 2 - PCV) 1976 Breast Cancer Screening 1997 Shingles Vaccine (Zoster) (1 of 2) 2007 Respiratory Syncytial Virus (RSV) Adult or (1 - Risk 60-74 years 1-dose series) 2017 Medicare Initial AWV G0438 06/24/2023 COVID-19 VACCINE (1 - 2023- season) 2024 Tobacco Cessation Counseling and Screening (12+) 02/2302/23/2023 Falls Risk Screening 06/23/2024 Influenza Vaccine (#1) [address] [place] [id number] [employer] MEDICARE PPO Advance Directives For more information, please contact: [phone] * Full Code (Latest Code Status on File) Date Activated Date Inactivated Comments 02/23/2023 5:16 PM 03/06/2023 1:36 PM Healthcare Agents on File Name Relationship Healthcare Agent Relationshi p Communication Crystal Eduard Daughter First Alternate Healthcare Decision-Maker Care Teams Police Pilot Relationship Specialty Start Date End Date Louise Ramirez PA-C [address] [place] [address] PCP - General Physician Retention Representative 02/23/23
--- OUTSIDE RECORDS SUMMARY | 2025-01-03 07:00 | XMS_ITS | Referral Summary ---
Author Organization [facility] ([place], [place], [place], [place]) Address [address] [place] [address] Care Team Providers Care Nephrology Social Worker Name Role Phone Louise Ramirez PA-C Primary Care Provider [phone] Allergies No known active allergies Medications promethazine [...] Aspiration pneumonia 02/23/2023 Acute pulmonary embolism 02/23/2023 Social History Tobacco Use Types Packs/Day Years [...] Date Lonnie rded Speak language other than Arabic at home Not on file 07/04/2023 Want [...] 02/24/2023 1:19 AM EDT Plan of Treatment [place] [id number] [facility] MEDICARE PPO Advance Directives For more information, please contact: [phone] * Full Code (Latest Code Status on File) Date Activated Date Inactivated Comments 02/23/2023 5:16 PM 03/06/2023 1:36 PM Healthcare Agents on File Name Relationship Healthcare Agent [facility] Communication Crystal Chapa Daughter First Alternate Healthcare Decision-Maker Care Teams Nephrology Social Worker Relationship Specialty Start Date End Date Louise Ramirez, SAIRAC [address] [place] [address] PCP - General Physician Manager Background 02/23/23
--- OUTSIDE RECORDS SUMMARY | 2025-01-03 07:01 | XMS_ITS | Patient Health Record ---
Author Organization [facility] Address [address] [place] [address] Care Team Providers Care Audio Visual Specialist Name Role Phone Julienbernardmarilee AUDRATrip Unavailable Ranjit KILLIAN -Neurosurg, [place] Unavailable Unav ailable Carolina Miner Unavailable [phone] Sam Matthews Unavailable [phone] Allergies No Known Allergies Results Component Value Reference Range Notes Urine Test ANALYZER Reviewed date:01/30/2024 10:03:52 AM Interpretation:+HYD+OPI+OXY Performing Lab: Notes/Report: +HYD+OPI+OXY Heroin Metabolite (6AM) NEG Amphetamine (AMP) NEG Benzodiazepine (TRICIA) NEG Buprenorphine NEG Cocaine (KIRSTY) NEG Hydrocodone (HYD) POS Methadone (MTD) NEG Opiate (OPI) POS Oxycodone (OXY) POS Urine Test ANALYZER Reviewed date:11/30/2024 03:32:49 PM Interpretation:+OPI +OXY Performing Lab: Notes/Report: +OPI +OXY Heroin Metabolite (6AM) NEG Amphetamine (AMP) NEG Benzodiazepine (TRICIA) NEG Buprenorphine NEG Cocaine (KIRSTY) NEG Hydrocodone (HYD) NEG Methadone (MTD) NEG Opiate (OPI) POS Oxycodone (OXY) POS Urine Test LCMS Definitive Reviewed date:08/24/2024 11:56:23 AM Interpretation:+Tramadol +Oxy 3/3 +Baclofen Performing Lab: Notes/Report: +Tramadol +Oxy 3/3 +Baclofen Urine Test LCMS Definitive Reviewed date:02/12/2024 05:53:17 AM Interpretation:+oxy 3/3 Performing Lab: Notes/Report: +oxy 3/3 Urine Test ANALYZER Reviewed date:04/22/2024 04:11:26 PM Interpretation:+OXY Performing Lab: Notes/Report: +OXY Heroin Metabolite (6AM) NEG Amphetamine (AMP) NEG Benzodiazepine (TRICIA) NEG Buprenorphine NEG Cocaine (KIRSTY) NEG Hydrocodone (HYD) NEG Methadone (MTD) NEG Opiate (OPI) NEG Oxycodone (OXY) POS Urine Test ANALYZER Reviewed date:02/25/2024 10:43:52 AM Interpretation:+OPI+OXY Performing Lab: Notes/Report: +OPI+OXY Heroin Metabolite (6AM) NEG Amphetamine (AMP) NEG Benzodiazepine (TRICIA) NEG Buprenorphine NEG Cocaine (KIRSTY) NEG Hydrocodone (HYD) NEG Methadone (MTD) NEG Opiate (OPI) POS Oxycodone (OXY) POS Urine Test LCMS Definitive Reviewed date:03/04/2024 06:15:14 AM Interpretation:+oxy 2/3 Performing Lab: Notes/Report: +oxy 2/3 Urine Test ANALYZER Reviewed date:06/18/2024 07:55:11 AM Interpretation:+OXY Performing Lab: Notes/Report: +OXY Heroin Metabolite (6AM) NEG Amphetamine (AMP) NEG Benzodiazepine (TRICIA) NEG Buprenorphine NEG Cocaine (KIRSTY) NEG Hydrocodone (HYD) NEG Methadone (MTD) NEG Opiate (OPI) NEG Oxycodone (OXY) POS Urine Test ANALYZER Reviewed date:10/06/2024 12:02:05 PM Interpretation:+OXY Performing Lab: Notes/Report: +OXY Heroin Metabolite (6AM) NEG Amphetamine (AMP) NEG Benzodiazepine (TRICIA) NEG Buprenorphine NEG Cocaine (KIRSTY) NEG Hydrocodone (HYD) NEG Methadone (MTD) NEG Opiate (OPI) NEG Oxycodone (OXY) POS Urine Test ANALYZER Reviewed date:08/11/2024 12:11:38 PM Interpretation:+OPI +OXY Performing Lab: Notes/Report: +OPI +OXY Heroin Metabolite (6AM) NEG Amphetamine (AMP) NEG Benzodiazepine (TRICIA) NEG Buprenorphine NEG Cocaine (KIRSTY) NEG Hydrocodone (HYD) NEG Methadone (MTD) NEG Opiate (OPI) POS Oxycodone (OXY) POS Reason For Referral Reason Order Xray on Lumbar Spine Diagnosis 1 Spondylosis without myelopathy or radiculopathy, lumbar region (M47.816) Referral Organization [facility] Referring Provider First Name Trip Referring Provider Last Name Elio Referring Provider Speciality Pain Manag ement Referred Provider Specialty Radiology General Notes Amber Palm (Bill ing) 02/20/2024 12:14:59 PM > Results in patient docs Referral Priority Routine Reason XRAY of RT HIP Diagnosis 1 Pain in right hip (M 25.551) Referral Organization [facility] Referring Provider First Name Trip Referring Provider Last Name Auroramarilee Referring Provider Speciality Pain Manag ement Referred Provider [facility] Referred Provider Specialty Radiology Referral Priority Routine Medications Medication SIG (Take, Route, Frequency, Duration) Notes Start Date End Date Status baclofen 10 mg 1 tab(s) orally 2 times a day; Duration: 28 days DO NOT FILL SOONER THAN 28 DAYS, (OK TO FILL EARLY, ONLY IF CLOSED) Active potassium bicarbonate 10 mEq 1 tab(s) orally once a day 07/16/2023 Active busPIRone 5 mg 1 tab(s) orally 2 times a day; Duration: 30 day(s) 06/11/2022 Active Narcan 4 mg/0.1 mL as directed intranasally once; Duration: 1 days Active omeprazole 40 mg 1 cap(s) orally once a day; Duration: 30 day(s) 06/11/2022 Active furosemide 20 mg 1 tab(s) orally once a day; Duration: 30 day(s) 06/11/2022 Active Relistor 150 mg 1 tab(s) orally once a day (in the morning); Duration: 30 day(s) Dx: K59.03 , Fax PA request to [phone] or [phone] Active metoprolol 50 mg 1 tab(s) orally once a day; Duration: 30 day(s) 07/16/2023 Active Eliquis 5 mg as directed orally 2 times a day; Duration: 30 day(s) 07/16/2023 Active OxyCODONE Hydrochloride 10 mg 1 tab(s) orally 4 times a day; Duration: 28 days November 2024 RX, DO NOT FILL SOONER THAN 28 DAYS, (OK TO FILL EARLY, ONLY IF CLOSED) 11/30/2024 Active OxyCODONE Hydrochloride 10 mg 1 tab(s) orally 4 times a day; Duration: 28 days December 2024 RX, DO NOT FILL SOONER THAN 28 DAYS, (OK TO FILL EARLY, ONLY IF CLOSED) 11/30/2024 Active Morphine Sulfate 15 mg 1 tab(s) orally a t bed time; Duration: 28 days November 2024 RX, , DO NOT FILL SOONER THAN 28 DAYS, (OK TO FILL EARLY, ONLY IF CLOSED) 11/30/2024 Active Morphine Sulfate 15 mg 1 tab(s) orally a t bed time; Duration: 28 days December 2024 RX, DO NOT FILL SOONER THAN 28 DAYS, (OK TO FILL EARLY, ONLY IF CLOSED) 11/30/2024 Active Problems Problem Type SNOMED Code ICD Code Onset Dates Problem Status W/U Status Risk Notes Problem Obstructive sleep apnea syndrome (disorder) (07313779) Obstructive sleep apnea (adult) (pediatric) (G47.33) Active confirmed Problem Chronic pain syndrome (800482417) Chronic pain syndrome (G89.4) Active confirmed Problem Arthralgia of the pelvic region and thigh (123413906) Pain in right hip (M25.551) Active confirmed Problem Scoliosis (997884436) Scoliosis, unspecified (M41.9) Active confirmed Problem Solitary sacroiliitis (462144869) Sacroiliitis, not elsewhere classified (M46.1) Active confirmed Problem Lumbosacral spondylosis without myelopathy (16894797) Spondylosis without myelopathy or radiculopathy, lumbar region (M47.816) Active confirmed Problem Post-laminectomy syndrome (47835179) Postlaminectomy syndrome, not elsewhere classified (M96.1) Active confirmed Problem Long-term current use of drug therapy (619434476) Other terminal makeup operator (current) drug therapy (Z79.899) Active confirmed Problem Drug-induced constipation (18933035) Drug induced constipation (K59.03) Active confirmed Vital Signs Heart Rate 66 /min 11/30/2024 Blood pressure diastolic 85 mm Hg 11/30/2024 Height 68 in 11/30/2024 Blood pressure systolic 162 mm Hg 11/30/2024 Weight 169 lbs 11/30/2024 BMI 25.69 kg/m2 11/30/2024 Encounters Encounter Location Date Provider Diagnosis [facility] [address] [place] [address] 01/30/2024 Trip Ballard Other terminal makeup operator (current) drug therapy Z79.899 ; Postlaminectomy syndrome, not elsewhere classified M96.1 ; Scoliosis, unspecified M41.9 and Obstructive sleep apnea (adult) (pediatric) G47.33 [facility] [address] [place] [address] 02/25/2024 Trip Ballard Other long-term (current) drug therapy Z79.899 ; Postlaminectomy syndrome, not elsewhere classified M96.1 ; Scoliosis, unspecified M41.9 ; Obstructive sleep apnea (adult) (pediatric) G47.33 and Drug induced constipation K59.03 [facility] [address] [place] [address] 04/21/2024 Trip Ballard Other terminal makeup operator (current) drug therapy Z79.899 ; Postlaminectomy syndrome, not elsewhere classified M96.1 ; Scoliosis, unspecified M41.9 ; Obstructive sleep apnea (adult) (pediatric) G47.33 and Drug induced constipation K59.03 [facility] [address] [place] [address] 06/17/2024 Trip Ballard Other terminal makeup operator (current) drug therapy Z79.899 ; Postlaminectomy syndrome, not elsewhere classified M96.1 ; Scoliosis, unspecified M41.9 ; Obstructive sleep apnea (adult) (pediatric) G47.33 and Drug induced constipation K59.03 [facility] [address] [place] [address] 08/10/2024 Trip Ballard Other terminal makeup operator (current) drug therapy Z79.899 ; Postlaminectomy syndrome, not elsewhere classified M96.1 ; Scoliosis, unspecified M41.9 ; Obstructive sleep apnea (adult) (pediatric) G47.33 and Drug induced constipation K59.03 [facility] [address] [place] [address] 10/06/2024 Sam Matthews Other terminal makeup operator (current) drug therapy Z79.899 ; Postlaminectomy syndrome, not elsewhere classified M96.1 ; Scoliosis, unspecified M41.9 ; Obstructive sleep apnea (adult) (pediatric) G47.33 and Drug induced constipation K59.03 [facility] [address] [place] [address] 11/30/2024 Trip Ballard Other terminal makeup operator (current) drug therapy Z79.899 ; Postlaminectomy syndrome, not elsewhere classified M96.1 ; Scoliosis, unspecified M41.9 ; Obstructive sleep apnea (adult) (pediatric) G47.33 and Drug induced constipation K59.03 [facility] [address] [place] [address] 01/30/2024 Carolina Miner Other terminal makeup operator (current) drug therapy Z79.899 [facility] [address] [place] [address] 01/30/2024 Trip Ballard [facility] [address] [place] [address] 02/20/2024 Trip Ballard [facility] [address] [place] [address] 02/25/2024 Trip Ballard Other long-term (current) drug therapy Z79.899 [facility] [address] [place] [address] 04/05/2024 Trip Ballard Other terminal makeup operator (current) drug therapy Z79.899 [facility] [address] [place] [address] 04/07/2024 Trip Ballard [facility] [address] [place] [address] 04/07/2024 Trip Ballard [facility] [address] [place] [address] 04/22/2024 Trip Ballard Other long-term (current) drug therapy Z79.899 [facility] [address] [place] [address] 05/24/2024 Trip Ballard Other terminal makeup operator (current) drug therapy Z79.899 [facility] [address] [place] [address] 06/14/2024 Trip Ballard [facility] [address] [place] [address] 06/17/2024 Trip Ballard Other long-term (current) drug therapy Z79.899 [facility] [address] [place] [address] 08/10/2024 Trip Ballard Other long-term (current) drug therapy Z79.899 [facility] [address] [place] [address] 11/30/2024 Trip Ballard Other long-term (current) drug therapy Z79.899 [facility] [address] [place] [address] 11/30/2024 Trip Ballard [facility] [address] [place] [address] 11/30/2024 Trip Ballard Other terminal makeup operator (current) drug therapy Z79.899 [facility] [address] [place] [address] 12/02/2024 Trip Ballard Assessments Encounter Date Diagnosis (ICD Code) Assessment Notes Treatment Notes Treatment Clinical Notes Section Notes 01/30/2024 Postlaminectomy syndrome, not elsewhere classified (ICD-10 - M96.1) 12/04/2023 Ms. Azevedo returns today for an office visit and medication refills. Patient stable with her current analgesic regiimen allowing her a decent quality of life. 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 No reported side effects with her medications, she does try to walk as much as possible. Will continue current treatment with her analgesic regimen, she is to continue with her HEP. Sarina and MARTHA reviewed. Follow up in 2 months. 9AUG24 - Patient with chronic thoracolumbar pain with increasing lower back pain, she does report pain and functional benefit with her current analgesic regimen. She reports no side effects with her mediations. Most recent SARINA and MARINS reviewed. We discussed lumbar MBB/RFA treatment of which she is interested in the treatment. Will first obtain thoracolumbar x-rays to assess which levels are fused and which may benefit from the MBB procedure. Refill her medications on appropriate refill date. She is to follow up in 4 weeks to review the x-rays. 01/30/2024 Other long-term (current) drug therapy (ICD-10 - Z79.899) 01/30/2024 1 Refill Oxycodone 10mg QID 2 Refill Baclofen 10mg BID ERX 3 Refill Morphine 15mg QHS 4 Refill Relistor 150 mg po daily 5 Consider 1+2 LMBB BABS L3,L4,L5 6 Xray of lumbar spine 7. Follow up in 1 months 12/04/2023 Ms. Azevedo returns today for an office visit and medication refills. Patient stable with her current analgesic regiimen allowing her a decent quality of life. 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 No reported side effects with her medications, she does try to walk as much as possible. Will continue current treatment with her analgesic regimen, she is to continue with her HEP. Sarina and MARTHA reviewed. Follow up in 2 months. 9AUG24 - Patient with chronic thoracolumbar pain with increasing lower back pain, she does report pain and functional benefit with her current analgesic regimen. She reports no side effects with her mediations. Most recent SARINA and MARTHA reviewed. We discussed lumbar MBB/RFA treatment of which she is interested in the treatment. Will first obtain thoracolumbar x-rays to assess which levels are fused and which may benefit from the MBB procedure. Refill her medications on appropriate refill date. She is to follow up in 4 weeks to review the x-rays. 02/25/2024 Other long-term (current) drug therapy (ICD-10 - Z79.899) 04/05/2024 Other terminal makeup operator (current) drug therapy (ICD-10 - Z79.899) 04/21/2024 Postlaminectomy syndrome, not elsewhere classified (ICD-10 - M96.1) Ms. Azevedo returns today for an office visit and [...] were reviewed. Opioid risk assessment is moderate. 04/21/2024 Other long-term (current) drug therapy (ICD-10 - Z79.899) 04/21/2024 1 Refill Oxycodone 10mg QID (04/22) 2 Refill Baclofen 10mg BID 3 Refill Morphine 15mg QHS 4 Refill Relistor 150 mg po daily 5 Consider 1+2 LMBB BABS L3,L4,L5 6 Follow up in 2 months Ms. Azevedo returns today for an office visit and [...] were reviewed. Opioid risk assessment is moderate. 08/10/2024 Other terminal makeup operator (current) drug therapy (ICD-10 - Z79.899) 10/06/2024 Postlaminectomy syndrome, not elsewhere classified (ICD-10 - M96.1) October 06, 2024: Review of history and previous note: Ms. Azevedo returns today for an office visit and [...] in two months. October 06, 2024: Ms. Azevedo presents today with continued lower back pain [...] neurologic changes or changes in bowel or bladder. 10/06/2024 Other long-term (current) drug therapy (ICD-10 - Z79.899) September 1 Refill Oxycodone 10mg QID 2 Refill Baclofen 10mg BID 3 Refill Morphine 15mg QHS 4 Refill Relistor 150 mg po daily 5 Follow up in 2 months 6 Refer for tens unit October 06, 2024: Review of history and previous note: Ms. Azevedo returns today for an office visit and [...] in two months. October 06, 2024: Ms. Azevedo presents today with continued lower back pain [...] neurologic changes or changes in bowel or bladder. 11/30/2024 Other long-term (current) drug therapy (ICD-10 - Z79.899) 11/30/2024 Other terminal makeup operator (current) drug therapy (ICD-10 - Z79.899) 08/10/2024 Postlaminectomy syndrome, not elsewhere classified (ICD-10 - M96.1) Ms. Azevedo returns today for an office visit and [...] were reviewed. Opioid risk assessment is moderate. 08/10/2024 Patient continues to have lower back pain with radiating pain to BLE. Rates her pain a 7 at todays visit. Describes pain as constant aching. Patient ambulates slouch over from the chronic back pain. Pain is provoked with standing and ambulating. Patient continues to utilize heat therapy along with prescribed treatment regimen. Daughter reports that she now organize her moms medicine. She has remained stable on oxycodone 10 mg 4 times daily and morphine 15mg nightly. She denies side effect of the medications. Sarina and UDS were reviewed. Schedule to follow up in two months. 08/10/2024 Other terminal makeup operator (current) drug therapy (ICD-10 - Z79.899) 08/10/2024 1 Refill Oxycodone 10mg QID 2 Refill Baclofen 10mg BID 3 Refill Morphine 15mg QHS 4 Refill Relistor 150 mg po daily 5 Consider 1+2 LMBB BABS L3,L4,L5 6 Follow up in 2 months Ms. Azevedo returns today for an office visit and [...] were reviewed. Opioid risk assessment is moderate. 08/10/2024 Patient continues to have lower back pain with radiating pain to BLE. Rates her pain a 7 at todays visit. Describes pain as constant aching. Patient ambulates slouch over from the chronic back pain. Pain is provoked with standing and ambulating. Patient continues to utilize heat therapy along with prescribed treatment regimen. Daughter reports that she now organize her moms medicine. She has remained stable on oxycodone 10 mg 4 times daily and morphine 15mg nightly. She denies side effect of the medications. Sarina and UDS were reviewed. Schedule to follow up in two months. 06/17/2024 Postlaminectomy syndrome, not elsewhere classified (ICD-10 - M96.1) Ms. Azevedo returns today for an office visit and [...] were reviewed. Opioid risk assessment is moderate. 06/17/2024 Patient continues to have lower back pain with radiating pain to BLE. Rates her pain a 7 at todays visit. Describes pain as constant aching. Pain is provoked with standing and ambulating. Patient continues to utilize heat therapy along with prescribed treatment regimen. Discussed with patient how she is taking her medicines, reports as prescribed. Address anonymous call with patient which she denies the accusations. Patient admits to past event and states that she has learned her lesson after that. Discuss the goals of opioid therapy again with patient and family member. She has remained stable on oxycodone 10 mg 1 p.o. 4 times daily and morphine 15 mg 1 p.o. nightly. She denies side effect of the medications. Sarina and UDS were reviewed. Schedule to follow up in two months. 06/17/2024 Other long-term (current) drug therapy (ICD-10 - Z79.899) 06/17/2024 1 Refill Oxycodone 10mg QID 2 Refill Baclofen 10mg BID 3 Refill Morphine 15mg QHS 4 Refill Relistor 150 mg po daily 5 Consider 1+2 LMBB BABS L3,L4,L5 6 Follow up in 2 months Ms. Azevedo returns today for an office visit and [...] were reviewed. Opioid risk assessment is moderate. 06/17/2024 Patient continues to have lower back pain with radiating pain to BLE. Rates her pain a 7 at todays visit. Describes pain as constant aching. Pain is provoked with standing and ambulating. Patient continues to utilize heat therapy along with prescribed treatment regimen. Discussed with patient how she is taking her medicines, reports as prescribed. Address anonymous call with patient which she denies the accusations. Patient admits to past event and states that she has learned her lesson after that. Discuss the goals of opioid therapy again with patient and family member. She has remained stable on oxycodone 10 mg 1 p.o. 4 times daily and morphine 15 mg 1 p.o. nightly. She denies side effect of the medications. Sarina and UDS were reviewed. Schedule to follow up in two months. 06/17/2024 Other terminal makeup operator (current) drug therapy (ICD-10 - Z79.899) 01/30/2024 Other long-term (current) drug therapy (ICD-10 - Z79.899) 02/25/2024 Postlaminectomy syndrome, not elsewhere classified (ICD-10 - M96.1) 02/25/2024 Ms. Azevedo returns today for an office visit and medication refills. Patient stable with her current analgesic regiimen allowing her a decent quality of life. 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 No reported side effects with her medications, she does try to walk as much as possible. I did discuss her lumbar spine x-ray results. 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 Patient states she does not want to pursue injection therapy at this time. She is currently managed on Oxycodone 10mg QID, Morphine 15mg at bedtime, along with baclofen 10mg BID as needed for spasms. She does report constipation with the opioids. Will continue Relistor 150mg 1 tab daily. Sarina and MARINS reviewed. Meds refilled and follow up 2 months. 02/25/2024 Other long-term (current) drug therapy (ICD-10 - Z79.899) 02/25/2024 1 Refill Oxycodone 10mg QID 2 Refill Baclofen 10mg BID 3 Refill Morphine 15mg QHS 4 Refill Relistor 150 mg po daily 5 Consider 1+2 LMBB BABS L3,L4,L5 6 results of Xray of lumbar spine discussed. 7. Declines injection therapy 8. Follow up in 2 months 02/25/2024 Ms. Azevedo returns today for an office visit and medication refills. Patient stable with her current analgesic regiimen allowing her a decent quality of life. 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 No reported side effects with her medications, she does try to walk as much as possible. I did discuss her lumbar spine x-ray results. 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 Patient states she does not want to pursue injection therapy at this time. She is currently managed on Oxycodone 10mg QID, Morphine 15mg at bedtime, along with baclofen 10mg BID as needed for spasms. She does report constipation with the opioids. Will continue Relistor 150mg 1 tab daily. Sarina and MARTHA reviewed. Meds refilled and follow up 2 months. 05/24/2024 Other terminal makeup operator (current) drug therapy (ICD-10 - Z79.899) 04/22/2024 Other long-term (current) drug therapy (ICD-10 - Z79.899) 11/30/2024 Other terminal makeup operator (current) drug therapy (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 Right hip xray to [facility] 08/10/2024 Screen Expected Definitive Unexpected(+t kandy) 10/06/2024 Screen Expected, 11/30/2024Scr een Expected,Sent for Definitive, will monitor October 06, 2024: Review of history and previous note: Ms. Azevedo returns today for an office visit and [...] in two months. October 06, 2024: Ms. Azevedo presents today with continued lower back pain [...] been ordered and will be performed at [facility]. A referral has also been placed for a TENS unit for adjunctive pain relief. Medications to be refilled include Oxycodone 10mg QID, Morphine 15mg QHS, Baclofen 10mg BID, and Relistor 150mg daily. The patient is scheduled to return for follow-up in two months. 11/30/2024 Postlaminectomy syndrome, not elsewhere classified (ICD-10 - M96.1) October 06, 2024: Review of history and previous note: Ms. Azevedo returns today for an office visit and [...] in two months. October 06, 2024: Ms. Azevedo presents today with continued lower back pain [...] been ordered and will be performed at [facility]. A referral has also been placed for a TENS unit for adjunctive pain relief. Medications to be refilled include Oxycodone 10mg QID, Morphine 15mg QHS, Baclofen 10mg BID, and Relistor 150mg daily. The patient is scheduled to return for follow-up in two months. 02/25/2024 Scoliosis, unspecified (ICD-10 - M41.9) 02/25/2024 Ms. Azevedo returns today for an office visit and medication refills. Patient stable with her current analgesic regiimen allowing her a decent quality of life. 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 No reported side effects with her medications, she does try to walk as much as possible. I did discuss her lumbar spine x-ray results. 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 Patient states she does not want to pursue injection therapy at this time. She is currently managed on Oxycodone 10mg QID, Morphine 15mg at bedtime, along with baclofen 10mg BID as needed for spasms. She does report constipation with the opioids. Will continue Relistor 150mg 1 tab daily. Sarina and UDS reviewed. Meds refilled and follow up 2 months. 06/17/2024 Scoliosis, unspecified (ICD-10 - M41.9) Ms. Azevedo returns today for an office visit and [...] were reviewed. Opioid risk assessment is moderate. 06/17/2024 Patient continues to have lower back pain with radiating pain to BLE. Rates her pain a 7 at todays visit. Describes pain as constant aching. Pain is provoked with standing and ambulating. Patient continues to utilize heat therapy along with prescribed treatment regimen. Discussed with patient how she is taking her medicines, reports as prescribed. Address anonymous call with patient which she denies the accusations. Patient admits to past event and states that she has learned her lesson after that. Discuss the goals of opioid therapy again with patient and family member. She has remained stable on oxycodone 10 mg 1 p.o. 4 times daily and morphine 15 mg 1 p.o. nightly. She denies side effect of the medications. Sarina and UDS were reviewed. Schedule to follow up in two months. 08/10/2024 Scoliosis, unspecified (ICD-10 - M41.9) Ms. Azevedo returns today for an office visit and [...] were reviewed. Opioid risk assessment is moderate. 08/10/2024 Patient continues to have lower back pain with radiating pain to BLE. Rates her pain a 7 at todays visit. Describes pain as constant aching. Patient ambulates slouch over from the chronic back pain. Pain is provoked with standing and ambulating. Patient continues to utilize heat therapy along with prescribed treatment regimen. Daughter reports that she now organize her moms medicine. She has remained stable on oxycodone 10 mg 4 times daily and morphine 15mg nightly. She denies side effect of the medications. Sarina and UDS were reviewed. Schedule to follow up in two months. 04/21/2024 Scoliosis, unspecified (ICD-10 - M41.9) Ms. Azevedo returns today for an office visit and [...] were reviewed. Opioid risk assessment is moderate. 10/06/2024 Scoliosis, unspecified (ICD-10 - M41.9) October 06, 2024: Review of history and previous note: Ms. Azevedo returns today for an office visit and [...] in two months. October 06, 2024: Ms. Azevedo presents today with continued lower back pain [...] neurologic changes or changes in bowel or bladder. 01/30/2024 Scoliosis, unspecified (ICD-10 - M41.9) 12/04/2023 Ms. Azevedo returns today for an office visit and medication refills. Patient stable with her current analgesic regiimen allowing her a decent quality of life. 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 No reported side effects with her medications, she does try to walk as much as possible. Will continue current treatment with her analgesic regimen, she is to continue with her HEP. Sarian and UDS reviewed. Follow up in 2 months. [id number] - Patient with chronic thoracolumbar pain with increasing lower back pain, she does report pain and functional benefit with her current analgesic regimen. She reports no side effects with her mediations. Most recent SARINA and UDS reviewed. We discussed lumbar MBB/RFA treatment of which she is interested in the treatment. Will first obtain thoracolumbar x-rays to assess which levels are fused and which may benefit from the MBB procedure. Refill her medications on appropriate refill date. She is to follow up in 4 weeks to review the x-rays. 10/06/2024 Obstructive sleep apnea (adult) (pediatric) (ICD-10 - G47.33) October 06, 2024: Review of history and previous note: Ms. Azevedo returns today for an office visit and [...] in two months. October 06, 2024: Ms. Azevedo presents today with continued lower back pain [...] neurologic changes or changes in bowel or bladder. 04/21/2024 Obstructive sleep apnea (adult) (pediatric) (ICD-10 - G47.33) Ms. Azevedo returns today for an office visit and [...] side effect of the medications. Sarina and MARINS were reviewed. Opioid risk assessment is moderate. 01/30/2024 Obstructive sleep apnea (adult) (pediatric) (ICD-10 - G47.33) 12/04/2023 Ms. Azevedo returns today for an office visit and medication refills. Patient stable with her current analgesic regiimen allowing her a decent quality of life. 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 No reported side effects with her medications, she does try to walk as much as possible. Will continue current treatment with her analgesic regimen, she is to continue with her HEP. Sarina and MARINS reviewed. Follow up in 2 months. [id number] - Patient with chronic thoracolumbar pain with increasing lower back pain, she does report pain and functional benefit with her current analgesic regimen. She reports no side effects with her mediations. Most recent SARINA and UDS reviewed. We discussed lumbar MBB/RFA treatment of which she is interested in the treatment. Will first obtain thoracolumbar x-rays to assess which levels are fused and which may benefit from the MBB procedure. Refill her medications on appropriate refill date. She is to follow up in 4 weeks to review the x-rays. 08/10/2024 Obstructive sleep apnea (adult) (pediatric) (ICD-10 - G47.33) Ms. Azevedo returns today for an office visit and [...] were reviewed. Opioid risk assessment is moderate. 08/10/2024 Patient continues to have lower back pain with radiating pain to BLE. Rates her pain a 7 at todays visit. Describes pain as constant aching. Patient ambulates slouch over from the chronic back pain. Pain is provoked with standing and ambulating. Patient continues to utilize heat therapy along with prescribed treatment regimen. Daughter reports that she now organize her moms medicine. She has remained stable on oxycodone 10 mg 4 times daily and morphine 15mg nightly. She denies side effect of the medications. Sarina and UDS were reviewed. Schedule to follow up in two months. 06/17/2024 Obstructive sleep apnea (adult) (pediatric) (ICD-10 - G47.33) Ms. Azevedo returns today for an office visit and [...] were reviewed. Opioid risk assessment is moderate. 06/17/2024 Patient continues to have lower back pain with radiating pain to BLE. Rates her pain a 7 at todays visit. Describes pain as constant aching. Pain is provoked with standing and ambulating. Patient continues to utilize heat therapy along with prescribed treatment regimen. Discussed with patient how she is taking her medicines, reports as prescribed. Address anonymous call with patient which she denies the accusations. Patient admits to past event and states that she has learned her lesson after that. Discuss the goals of opioid therapy again with patient and family member. She has remained stable on oxycodone 10 mg 1 p.o. 4 times daily and morphine 15 mg 1 p.o. nightly. She denies side effect of the medications. Sarina and UDS were reviewed. Schedule to follow up in two months. 02/25/2024 Obstructive sleep apnea (adult) (pediatric) (ICD-10 - G47.33) 02/25/2024 Ms. Azevedo returns today for an office visit and medication refills. Patient stable with her current analgesic regiimen allowing her a decent quality of life. 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 No reported side effects with her medications, she does try to walk as much as possible. I did discuss her lumbar spine x-ray results. 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 Patient states she does not want to pursue injection therapy at this time. She is currently managed on Oxycodone 10mg QID, Morphine 15mg at bedtime, along with baclofen 10mg BID as needed for spasms. She does report constipation with the opioids. Will continue Relistor 150mg 1 tab daily. Sarina and UDS reviewed. Meds refilled and follow up 2 months. 11/30/2024 Scoliosis, unspecified (ICD-10 - M41.9) October 06, 2024: Review of history and previous note: Ms. Azevedo returns today for an office visit and [...] in two months. October 06, 2024: Ms. Azevedo presents today with continued lower back pain [...] been ordered and will be performed at [facility]. A referral has also been placed for a TENS unit for adjunctive pain relief. Medications to be refilled include Oxycodone 10mg QID, Morphine 15mg QHS, Baclofen 10mg BID, and Relistor 150mg daily. The patient is scheduled to return for follow-up in two months. 11/30/2024 Obstructive sleep apnea (adult) (pediatric) (ICD-10 - G47.33) October 06, 2024: Review of history and previous note: Ms. Azevedo returns today for an office visit and [...] in two months. October 06, 2024: Ms. Azevedo presents today with continued lower back pain [...] been ordered and will be performed at [facility]. A referral has also been placed for a TENS unit for adjunctive pain relief. Medications to be refilled include Oxycodone 10mg QID, Morphine 15mg QHS, Baclofen 10mg BID, and Relistor 150mg daily. The patient is scheduled to return for follow-up in two months. 02/25/2024 Drug induced constipation (ICD-10 - K59.03) 02/25/2024 Ms. Azevedo returns today for an office visit and medication refills. Patient stable with her current analgesic regiimen allowing her a decent quality of life. 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 No reported side effects with her medications, she does try to walk as much as possible. I did discuss her lumbar spine x-ray results. 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 Patient states she does not want to pursue injection therapy at this time. She is currently managed on Oxycodone 10mg QID, Morphine 15mg at bedtime, along with baclofen 10mg BID as needed for spasms. She does report constipation with the opioids. Will continue Relistor 150mg 1 tab daily. Sarina and UDS reviewed. Meds refilled and follow up 2 months. 08/10/2024 Drug induced constipation (ICD-10 - K59.03) Ms. Azevedo returns today for an office visit and [...] were reviewed. Opioid risk assessment is moderate. 08/10/2024 Patient continues to have lower back pain with radiating pain to BLE. Rates her pain a 7 at todays visit. Describes pain as constant aching. Patient ambulates slouch over from the chronic back pain. Pain is provoked with standing and ambulating. Patient continues to utilize heat therapy along with prescribed treatment regimen. Daughter reports that she now organize her moms medicine. She has remained stable on oxycodone 10 mg 4 times daily and morphine 15mg nightly. She denies side effect of the medications. Sarina and UDS were reviewed. Schedule to follow up in two months. 06/17/2024 Drug induced constipation (ICD-10 - K59.03) Ms. Azevedo returns today for an office visit and [...] were reviewed. Opioid risk assessment is moderate. 06/17/2024 Patient continues to have lower back pain with radiating pain to BLE. Rates her pain a 7 at todays visit. Describes pain as constant aching. Pain is provoked with standing and ambulating. Patient continues to utilize heat therapy along with prescribed treatment regimen. Discussed with patient how she is taking her medicines, reports as prescribed. Address anonymous call with patient which she denies the accusations. Patient admits to past event and states that she has learned her lesson after that. Discuss the goals of opioid therapy again with patient and family member. She has remained stable on oxycodone 10 mg 1 p.o. 4 times daily and morphine 15 mg 1 p.o. nightly. She denies side effect of the medications. Sarina and UDS were reviewed. Schedule to follow up in two months. 10/06/2024 Drug induced constipation (ICD-10 - K59.03) October 06, 2024: Review of history and previous note: Ms. Azevedo returns today for an office visit and [...] in two months. October 06, 2024: Ms. Azevedo presents today with continued lower back pain [...] neurologic changes or changes in bowel or bladder. 04/21/2024 Drug induced constipation (ICD-10 - K59.03) Ms. Azevedo returns today for an office visit and [...] were reviewed. Opioid risk assessment is moderate. 11/30/2024 Drug induced constipation (ICD-10 - K59.03) October 06, 2024: Review of history and previous note: Ms. Azevedo returns today for an office visit and [...] in two months. October 06, 2024: Ms. Azevedo presents today with continued lower back pain [...] been ordered and will be performed at [facility]. A referral has also been placed for a TENS unit for adjunctive pain relief. Medications to be refilled include Oxycodone 10mg QID, Morphine 15mg QHS, Baclofen 10mg BID, and Relistor 150mg daily. The patient is scheduled to return for follow-up in two months. 01/28/2024 12/04/2023 Ms. Azevedo returns today for an office visit and medication refills. Patient stable with her current analgesic regiimen allowing her a decent quality of life. 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 No reported side effects with her medications, she does try to walk as much as possible. Will continue current treatment with her analgesic regimen, she is to continue with her HEP. Sarina and UDS reviewed. Follow up in 2 months. 03/01/2024 12/04/2023 Ms. Azevedo returns today for an office visit and medication refills. Patient stable with her current analgesic regiimen allowing her a decent quality of life. 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 No reported side effects with her medications, she does try to walk as much as possible. Will continue current treatment with her analgesic regimen, she is to continue with her HEP. Sarina and UDS reviewed. Follow up in 2 months. [id number] - Patient with chronic thoracolumbar pain with increasing lower back pain, she does report pain and functional benefit with her current analgesic regimen. She reports no side effects with her mediations. Most recent SARINA and UDS reviewed. We discussed lumbar MBB/RFA treatment of which she is interested in the treatment. Will first obtain thoracolumbar x-rays to assess which levels are fused and which may benefit from the MBB procedure. Refill her medications on appropriate refill date. She is to follow up in 4 weeks to review the x-rays. Plan Of Treatment Pending Test Test Name Order Date Urine Test ANALYZER 03/17/2020 Urine Test ANALYZER 07/06/2020 Urine Test ANALYZER 04/11/2021 Urine Test ANALYZER 08/28/2022 Urine Test ANALYZER 07/17/2023 Urine Test ANALYZER 08/02/2021 Urine Test ANALYZER 11/15/2020 Urine Test ANALYZER 09/28/2020 Urine Test LCMS Definitive 11/30/2024 Next Appt Details Provider Name:Trip Finnegan Julienshirin kayode, 01/26/2025 10:00:00 AM, [address], [address], [place], [address], Insurance Providers Payer Name Payer Address Payer Phone Subscriber Number Group Number Insured Name Patient Relationship to Insured Coverage Start Date Coverage End Date [employer] [address] [place] [phone] [id number] Maggie Azevedo Self - patient is the insured 4 [place] [employer] [address] [place] [address] [id number] Maggie Azevedo Self - patient is the insured 4 Medical (General) History Medical History History ICD Code HTN -[address] Farzaneh Feldman High cholesterol [address] Fer ruiz hiatal hernia [address] Farzaneh Rendon genna Reflux [address] Farzaneh Feldman Depression [address] Feldman Anxiety [address] Feldman Surgical History Surgery Date(Month/Year) Neck surgery / [facility] / Dr. Church / 1 night stay 2015 Rods in back / [facility] / / (out-patient surgery) 2017 Scoliosis surgery x4 / [facility] / Dr. Stanley / 1970 Hospitalization History Reason Date(Month/Year) Pneumonia & sepsis / [facility] / 2-3 days 05/2020
--- OUTSIDE RECORDS SUMMARY | 2025-01-03 07:01 | XMS_ITS | Clinical Summary ---
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 Name Role Phone Darrin Carpio MD Primary Care Provider [phone] Family History Medical History Relation Name Comments Stroke Other 1 Diabetes Other 2 Hypertension Other 3 Heart attack Other 4 Relation Name Status Comments Other 1 Other 2 Other 3 Other 4 Social History Tobacco Use Types Packs/Day Years Used Date Smoking Tobacco: Never Alcohol Use Standard Drinks/Week Comments No 0 (1 standard drink = 0.6 oz pur e alcohol) Comments Unknown Sex and Gender Information Value Date Recorded Sex Assigned at Not on file Legal Sex Female 6:32 PM EDT Gender Identity Not on file Sexual Orientation Not on file Last Filed Vital Signs Vital Sign Reading Time Taken Comments Blood Pressure - - Pulse - - Temperature - - Respiratory Rate - - Oxygen Saturation - - Inhaled Oxygen Concentration - - Weight 79.1 kg (174 lb 6.1 oz) 01/21/2017 1:09 P M EDT Height 172.7 cm (5' 8 ) 01/21/2017 1:09 PM EDT Body Mass Index 26.51 01/21/2017 1:09 PM EDT Plan of Treatment Not on file Care Teams Border Measurer And Cutter Relationship Specialty Start Date End Date Darrin Carpio MD [address] [place] [id number] PCP - General 11/03/20
--- NOTE | 2025-01-03 07:38 | XR_ITS ---
PROCEDURE INFORMATION: Exam: XR Right Hip Exam date and time: 01/03/2025 7:23 AM Age: 69 years old Clinical indication: Hip pain; Right hip; Additional info: RT hip pain, nki TECHNIQUE: Imaging protocol: Radiologic exam of the right hip. Views: 2 or 3 views hip with pelvis when performed. COMPARISON: CT ANGIO ABDOMEN PELVIS 04/12/2023 4:35 PM FINDINGS: Tubes, catheters and devices: Intrathecal catheter in place projecting over the lower lumbar spine and upper sacrum. Left lower quadrant intrathecal pump. Bones/joints: No acute osseous abnormality. No dislocation. Moderate to severe bilateral hip arthrosis right greater than left. Lower lumbar degenerative changes. Soft tissues: No significant soft tissue abnormalities. IMPRESSION: Moderate to severe bilateral hip arthrosis right greater than left.
== END 2025-01-03 23:59 | disposition home or self-care (01) ==
LOC: RAD 06:58
PROVIDERS: PCP Nurse Practitioner Family; Visit Provider Internal Medicine Pulmonary Disease
DX: M16.0 Bilateral primary osteoarthritis of hip (principal); J47.9 Bronchiectasis, uncomplicated
CPT/HCPCS: 71250; 73502; 94618

== ENCOUNTER 2025-02-18 08:42 | Outpatient (CLI) | payer MEDICARE, MEDICAID, SELFPAY ==
--- NOTE | 2025-02-18 09:00 | XR_ITS ---
FINAL REPORT CLINICAL HISTORY: post menopausal FINDINGS: Using L1-4, the bone mineral density of the spine is 1.266 g/cm2, corresponding to T-score of 2.0, with a Z-score of 3.9. This is considered within normal limits. Using the left hip, the bone mineral density of the femoral neck is 0.580 g/cm2, corresponding to a T-score of -2.4, and a Z-score of -0.8. This is consistent with osteopenia. Using the right hip, the bone mineral density of the femoral neck is 0.725 g/cm2, corresponding to a T-score of -1.8, and a Z-score of -0.4. This is consistent with osteopenia. NOTE: T-score: Standard deviation compared with peak bone mass of young adult mean. *Following the recommendations of the International Society of Bone densitometry, classification of hip BMD is based on the lower of two T-scores; total hip or femoral neck. IMPRESSION: 1. Diminished bone mineral density of the bilateral femoral necks consistent with osteopenia. 2. Normal bone mineral density of the lumbar spine. Reviewed, Interpreted and Dictated by Ifeoma Fermin MD Transcribed by Carol Gallagher Authenticated and [facility]
== END 2025-02-18 23:59 | disposition home or self-care (01) ==
LOC: RAD 08:43
PROVIDERS: PCP Nurse Practitioner Family; Visit Provider Nurse Practitioner Family
DX: Z78.0 Asymptomatic menopausal state (principal); M85.852 Other specified disorders of bone density and structure, left thigh; M85.851 Other specified disorders of bone density and structure, right thigh
CPT/HCPCS: 77080